=== PATIENT | female | born 1950 | race Caucasian/White ===

== ENCOUNTER 2018-01-29 07:59 | Day surgery (SDC) | payer OTHER, SELFPAY ==
[2018-01-29] MEDS: PROPARACAINE 0.5% OPHTH SOL 2 DROPS EYE-OP (10:23)
[2018-01-29] MEDS: CATARACT EYE COMPOUND (10 DROPS/SYRINGE) 3 DROPS EYE-OP (10:33)
[2018-01-29 10:41] VITALS: BP 147/71; PULSE 66; RESP 16; TEMP 36.5; O2SAT 100
--- NOTE | 2018-01-29 11:45 | PM.PREOP ---
Pre-operative Note Interval Note Pre-op Check: History & Physical Reviewed by Physician
[2018-01-29] MEDS: MOXIFLOXACIN OPHTH DROPS 3 ML BOTTLE 2 DROPS INJ (11:54)
[2018-01-29] MEDS: CHONDROIDTIN/SOD HYALURONATE 1.05 ML SYRINGE INTRAOCULA (11:54)
[2018-01-29] MEDS: TRIAMCINOLONE 50 MG/5 ML VIAL INJ (11:55)
[2018-01-29] MEDS: BALANCED SALT IRRIG SOLN NO.2 500 ML, EPINEPHrine 1 MG IRR (11:55)
[2018-01-29] MEDS: PHENYLEPHRINE/LIDOCAINE 3ML VIAL (OR) EYE-OP (11:56)
[2018-01-29] MEDS: LIDOCAINE JELLY 2% 5 ML 1 APPLIC TOP (11:57)
--- NOTE | 2018-01-29 12:05 | P.OP_ITS ---
Operative Date/Time/Diagnoses - Pre-op diagnosis: Cataract Right eye Post-op diagnosis: same Procedure & Clinicians Procedure: Cataract Surgery Same procedure as scheduled: Yes Surgeon: Dev Concepcion Anesthesia Type: MAC +/- and Sedation Operative Notes Procedure in detail: Patient brought to the operating suite. Tetracaine drops placed in the right eye. Patient was prepped and draped in sterile manner. Wire lid speculum was placed in the eye. Betadine drops were placed on the eye. This was irrigated. Lidocaine jelly was placed on the eye. A paracentesis port was created with a side-port blade. 0.1 mL 1% preservative free lidocaine was injected into the anterior chamber. The anterior chamber was deepened with viscoelastic. 2.6 mm keratome was used to create a temporal clear corneal incision. Cystotome and Utrata forceps were used to create continuous tear capsulorrhexis. Balanced salt solution was used to hydro dissect the nucleus. The phacoemulsification handpiece was inserted and the nucleus was removed using the stop and chop technique. The irrigation aspiration handpiece was inserted and the remaining cortex was removed. Anterior chamber was deepened with viscoelastic. An Heath ZCB00 intraocular lens with a power of 22.5 was injected into the capsular bag. Irrigation aspiration handpiece was inserted and the remaining viscoelastic was removed. Incision was hydrated with balanced salt solution and found to be leak free with pressure with Weck- Marcela sponges. 0.1 mL Vigamox injected anterior chamber. 0.3 mL Kenalog 10 mg was injected subconjunctivally. Lid speculum was removed. The patient left the operating room in excellent condition. Complications: none Condition: stable Disposition: same day surgery
[2018-01-29 12:09] VITALS: BP 117/75; PULSE 58; RESP 15; TEMP 36.3; O2SAT 99
[2018-01-29] MEDS: TETRACAINE 0.5% OPHTH DROPS 15 ML 2 DROPS EYE-BOTH (12:30)
== END 2018-01-29 12:17 ==
LOC: OR 07:59
PROVIDERS: Visit Provider Ophthalmology
DX: H25.11 Age-related nuclear cataract, right eye (principal)
CPT/HCPCS: J0171; J2250; J3010; J3301

== ENCOUNTER → 2018-03-05 07:28 | Outpatient (CLI) | payer OTHER, SELFPAY ==
[2018-03-05 08:39] LABS: Alanine Aminotransferase 32 IU/L (9-52); Albumin 4.7 g/dL (3.5-5.0); Albumin Globulin Ratio 1.7 (1.0-2.8); Alkaline Phosphatase 62 U/L (38-126); Aspartate Aminotransferase 31 IU/L (14-36); Bilirubin Total 0.4 mg/dL (0.2-1.3); Bilirubin Unconjugated 0.2 mg/dL (0.0-1.1); Globulin 2.7 g/dL (1.7-4.1); HEMOLYSIS < 15 (0-50); Total Protein 7.4 g/dL (6.3-8.2)
[2018-03-05 09:04] LABS: Carcinoembryonic Antigen 2.3 ng/mL (0.1-3.0)
[2018-03-06 15:43] LABS: CA 15-3 12 U/mL (< 32)
== END ==
PROVIDERS: PCP Internal Medicine
DX: C50.919 Malignant neoplasm of unspecified site of unspecified female breast (principal)
CPT/HCPCS: 36415; 80076; 82378; 86300

== ENCOUNTER 2018-03-05 12:50 | Day surgery (SDC) | payer OTHER, SELFPAY ==
[2018-03-05 12:59] VITALS: BP 184/80; PULSE 75; RESP 18; TEMP 36.3; O2SAT 99
[2018-03-05] MEDS: PROPARACAINE 0.5% OPHTH SOL 2 DROPS EYE-OP (12:59)
[2018-03-05 13:04] VITALS: BMI 25.1
[2018-03-05] MEDS: CATARACT EYE COMPOUND (10 DROPS/SYRINGE) 3 DROPS EYE-OP (13:13)
--- NOTE | 2018-03-05 13:19 | SUR.PREOP ---
Pt ready for OR at this time. Nursing admission data base completed, PIV in place, and d/c teaching has been reviewed.
--- NOTE | 2018-03-05 13:41 | P.OP.PRE_ITS ---
Pre-operative Note Interval Note Changes: No
--- NOTE | 2018-03-05 13:41 | PM.PREOP ---
Pre-operative Note Interval Note Changes: No
--- NOTE | 2018-03-05 13:42 | P.OP_ITS ---
Operative Date/Time/Diagnoses Pre-op diagnosis: Cataract Left eye Post-op diagnosis: same Procedure & Clinicians Surgeon: Dev Concepcion Anesthesia Type: MAC +/- and Sedation Operative Notes Procedure in detail: Patient brought to the operating suite. Tetracaine drops placed in the left eye. Patient was prepped and draped in sterile manner. Wire lid speculum was placed in the eye. Betadine drops were placed on the eye. This was irrigated. Lidocaine jelly was placed on the eye. A paracentesis port was created with a side-port blade. 0.1 mL 1% preservative free lidocaine was injected into the anterior chamber. The anterior chamber was deepened with viscoelastic. 2.6 mm keratome was used to create a temporal clear corneal incision. Cystotome and Utrata forceps were used to create continuous tear capsulorrhexis. Balanced salt solution was used to hydro dissect the nucleus. The phacoemulsification handpiece was inserted and the nucleus was removed using the stop and chop technique. The irrigation aspiration handpiece was inserted and the remaining cortex was removed. Anterior chamber was deepened with viscoelastic. An Heath ZCB00 intraocular lens with a power of 24.0 was injected into the capsular bag. Irrigation aspiration handpiece was inserted and the remaining viscoelastic was removed. Incision was hydrated with balanced salt solution and found to be leak free with pressure with Weck- Marcela sponges. 0.1 mL Vigamox injected anterior chamber. 0.3 mL Kenalog 10 mg was injected subconjunctivally. Lid speculum was removed. The patient left the operating room in excellent condition. Complications: none Condition: stable Disposition: same day surgery
[2018-03-05] MEDS: LIDOCAINE JELLY 2% 5 ML 1 APPLIC TOP (13:56)
[2018-03-05] MEDS: CHONDROIDTIN/SOD HYALURONATE 1.05 ML SYRINGE INTRAOCULA (13:56)
[2018-03-05] MEDS: MOXIFLOXACIN OPHTH DROPS 3 ML BOTTLE 2 DROPS INJ (13:57)
[2018-03-05] MEDS: PHENYLEPHRINE/LIDOCAINE 3ML VIAL (OR) EYE-OP (13:57)
[2018-03-05] MEDS: TETRACAINE 0.5% OPHTH DROPS 15 ML 2 DROPS EYE-LEFT (13:57)
[2018-03-05] MEDS: TRIAMCINOLONE 50 MG/5 ML VIAL INJ (13:58)
[2018-03-05] MEDS: BALANCED SALT IRRIG SOLN NO.2 500 ML, EPINEPHrine 1 MG IRR (13:58)
[2018-03-05 14:30] VITALS: BP 166/89; PULSE 67; TEMP 36.6; O2SAT 99
[2018-03-05 15:03] VITALS: BP 127/80; PULSE 60; RESP 15; TEMP 36.6; O2SAT 98
== END 2018-03-05 15:23 | disposition home or self-care (01) ==
LOC: OR 12:50
PROVIDERS: PCP Internal Medicine; Visit Provider Ophthalmology
DX: H25.12 Age-related nuclear cataract, left eye (principal); Z86.711 Personal history of pulmonary embolism
CPT/HCPCS: 36415; 80076; 82378; 86300; J0171; J2250; J3010; J3301

== ENCOUNTER → 2018-05-03 07:31 | Outpatient (CLI) | payer OTHER, SELFPAY ==
[2018-05-03 09:37] LABS: Thyroid Stimulating Hormone 1.54 uIU/mL (0.47-4.68)
== END ==
PROVIDERS: PCP Internal Medicine; Visit Provider Internal Medicine
DX: I48.92 Unspecified atrial flutter (principal); Z78.0 Asymptomatic menopausal state; Z85.3 Personal history of malignant neoplasm of breast; E78.00 Pure hypercholesterolemia, unspecified; Z90.722 Acquired absence of ovaries, bilateral; Z87.891 Personal history of nicotine dependence
CPT/HCPCS: 77080; 84443

== ENCOUNTER → 2018-05-07 14:00 | Outpatient (CLI) | payer OTHER, SELFPAY | PROVIDERS: PCP Internal Medicine | DX: Z23 Encounter for immunization (principal) | CPT/HCPCS: 90471; 90662 ==

== ENCOUNTER → 2018-05-10 14:00 | Outpatient (CLI) | payer OTHER, SELFPAY | PROVIDERS: PCP Internal Medicine; Visit Provider Podiatrist Foot & Ankle Surgery | DX: M20.11 Hallux valgus (acquired), right foot (principal); M20.41 Other hammer toe(s) (acquired), right foot | CPT/HCPCS: 93005 ==

== ENCOUNTER → 2018-06-07 13:12 | Outpatient (CLI) | payer OTHER, SELFPAY ==
[2018-06-07 13:57] LABS: Appearance Urine UA CLOUDY; Bilirubin Urine UA NEGATIVE (NEGATIVE); Color Urine UA YELLOW; Glucose Urine UA NEGATIVE (Normal); Ketones Urine UA NEGATIVE (NEGATIVE); Leukocyte Esterase Urine UA 2+ (NEGATIVE); Nitrite Urine UA NEGATIVE (Negative); Occult Blood Urine UA 2+ (Negative); Protein Urine UA 2+ (Negative); Urobilinogen Urine UA 0.2 E.U./dL (0.2); pH Urine UA 5.5 (4.5-8.0)
[2018-06-07 14:44] LABS: Bacteria Urine Moderate (10-30); Culture Indicated Urine Specimen Cultured; RBC Urine 10-30/HPF (0-5/HPF); Squamous Epithelial Cell Urine None Seen; WBC Urine >100/HPF (0-5/HPF)
== END ==
PROVIDERS: PCP Internal Medicine; Visit Provider Internal Medicine
DX: N39.0 Urinary tract infection, site not specified (principal)
CPT/HCPCS: 81001; 87077; 87086

== ENCOUNTER → 2019-05-06 07:42 | Outpatient (CLI) | payer MEDICARE, OTHER, SELFPAY ==
[2019-05-06 11:33] LABS: Add Manual Diff / Slide Review NO; Basophils Absolute Auto 0 /uL (0-100); Basophils Percent Auto 0.6 % (0-2); Eosinophils Absolute Auto 100 /uL (0-450); Eosinophils Percent Auto 1.3 % (2-4); Hematocrit 36.8 % (36-46); Hemoglobin 12.3 g/dL (12.0-16.0); Lymphocytes Absolute Auto 1300 /uL (1100-4500); Lymphocytes Percent Auto 28.1 % (25-40); Mean Corpuscular HGB Conc 33.5 % (30-36); Mean Corpuscular Hemoglobin 31.3 PG (26-34); Mean Corpuscular Volume 93.4 fL (80-100); Monocytes Absolute Auto 500 /uL (0-900); Monocytes Percent Auto 11.5 % (3-14); Neutrophils Absolute Auto 2700 /uL (1500-7000); Neutrophils Percent Auto 58.5 % (50-75); Platelet Count 231 X10^3/uL (150-400); Red Blood Cell Count 3.94 X10^6/uL (4.0-5.2); Red Cell Distribution Width 13.4 % (11.6-14.8); White Blood Cell Count 4.5 X10^3/uL (4.5-11.0)
[2019-05-06 11:46] LABS: Alanine Aminotransferase 31 IU/L (9-52); Albumin 4.7 g/dL (3.5-5.0); Albumin Globulin Ratio 1.7 (1.0-2.8); Alkaline Phosphatase 62 U/L (38-126); Aspartate Aminotransferase 36 IU/L (14-36); BUN Creatinine Ratio 26.4 (6-22); Bilirubin Total 0.6 mg/dL (0.2-1.3); Blood Urea Nitrogen 29 mg/dL (7-17); Calcium 10.4 mg/dL (8.4-10.2); Carbon Dioxide 27 mmol/L (22-32); Chloride 100 mmol/L (98-107); Estimated Glomerular Filt Rate 49.1 mL/min (>60); Globulin 2.7 g/dL (1.7-4.1); Glucose 91 mg/dL (80-110); HEMOLYSIS < 15 (0-50); Potassium 5.1 mmol/L (3.4-5.1); Sodium 138 mmol/L (137-145); Total Protein 7.4 g/dL (6.3-8.2)
[2019-05-06 12:19] LABS: Vitamin D 25 Hydroxy (D3) 62.3 ng/mL (30.0-100.0)
== END ==
PROVIDERS: Family Provider Internal Medicine; PCP Internal Medicine; Visit Provider Nurse Practitioner
DX: Z12.39 Encounter for other screening for malignant neoplasm of breast (principal); Z85.3 Personal history of malignant neoplasm of breast
CPT/HCPCS: 36415; 80053; 82306; 85025

== ENCOUNTER → 2019-05-22 07:39 | Outpatient (CLI) | payer MEDICARE, OTHER, SELFPAY ==
[2019-05-22 09:14] LABS: Cholesterol 259 mg/dL (140-199); HDL Cholesterol 101 mg/dL (40-60); LDL Cholesterol Calculated 141 mg/dL (<100); Triglycerides 87 mg/dL (35-150)
== END ==
PROVIDERS: PCP Internal Medicine; Visit Provider Internal Medicine
DX: E78.00 Pure hypercholesterolemia, unspecified (principal)
CPT/HCPCS: 36415; 80061

== ENCOUNTER → 2019-05-30 15:32 | Outpatient (CLI) | payer MEDICARE, OTHER, SELFPAY | PROVIDERS: PCP Internal Medicine | DX: Z23 Encounter for immunization (principal) | CPT/HCPCS: 90471; 90662 ==

== ENCOUNTER → 2020-02-05 11:43 | Outpatient (CLI) | payer MEDICARE, OTHER, SELFPAY ==
[2020-02-05 12:19] LABS: Add Manual Diff / Slide Review NO; Basophils Absolute Auto 0 /uL (0-100); Basophils Percent Auto 0.7 % (0-2); Eosinophils Absolute Auto 100 /uL (0-450); Eosinophils Percent Auto 1.5 % (2-4); Hematocrit 36.8 % (36-46); Hemoglobin 12.7 g/dL (12.0-16.0); Lymphocytes Absolute Auto 1200 /uL (1100-4500); Lymphocytes Percent Auto 22.9 % (25-40); Mean Corpuscular HGB Conc 34.4 % (30-36); Mean Corpuscular Hemoglobin 31.7 PG (26-34); Mean Corpuscular Volume 91.9 fL (80-100); Monocytes Absolute Auto 600 /uL (0-900); Monocytes Percent Auto 11.9 % (3-14); Neutrophils Absolute Auto 3400 /uL (1500-7000); Platelet Count 237 X10^3/uL (150-400); Red Cell Distribution Width 13.7 % (11.6-14.8); White Blood Cell Count 5.5 X10^3/uL (4.5-11.0)
[2020-02-05 12:51] LABS: Alanine Aminotransferase 20 IU/L (<35); Albumin 4.7 g/dL (3.5-5.0); Alkaline Phosphatase 67 U/L (38-126); Aspartate Aminotransferase 33 IU/L (14-36); BUN Creatinine Ratio 20.4 (6-22); Bilirubin Total 0.5 mg/dL (0.2-1.3); Blood Urea Nitrogen 34 mg/dL (7-17); Calcium 10.3 mg/dL (8.4-10.2); Carbon Dioxide 25 mmol/L (22-32); Chloride 103 mmol/L (98-107); Cholesterol 234 mg/dL (140-199); Estimated Glomerular Filt Rate 30.2 mL/min (>60); Globulin 2.4 g/dL (1.7-4.1); Glucose 97 mg/dL (80-110); HDL Cholesterol 97 mg/dL (40-60); HEMOLYSIS < 15 (0-50); LDL Cholesterol Calculated 112 mg/dL (<100); Potassium 4.7 mmol/L (3.4-5.1); Sodium 136 mmol/L (137-145); Total Protein 7.1 g/dL (6.3-8.2); Triglycerides 124 mg/dL (35-150)
[2020-02-05 13:19] LABS: TSH w/ Reflex to FT4 1.46 uIU/mL (0.47-4.68)
== END ==
PROVIDERS: PCP Internal Medicine; Referring Provider Internal Medicine; Visit Provider Internal Medicine
DX: I48.92 Unspecified atrial flutter (principal); E78.2 Mixed hyperlipidemia
CPT/HCPCS: 36415; 80053; 80061; 84443; 85025

== ENCOUNTER → 2020-03-15 09:22 | Outpatient (CLI) | payer MEDICARE, OTHER, SELFPAY ==
[2020-03-15 14:29] LABS: BUN Creatinine Ratio 31.2 (6-22); Blood Urea Nitrogen 34 mg/dL (7-17); Calcium 10.6 mg/dL (8.4-10.2); Carbon Dioxide 25 mmol/L (22-32); Chloride 106 mmol/L (98-107); Estimated Glomerular Filt Rate 49.5 mL/min (>60); Glucose 99 mg/dL (80-110); HEMOLYSIS < 15 (0-50); Potassium 4.8 mmol/L (3.4-5.1); Sodium 138 mmol/L (137-145)
== END ==
PROVIDERS: PCP Internal Medicine; Referring Provider Internal Medicine; Visit Provider Internal Medicine
DX: I48.92 Unspecified atrial flutter (principal); E78.2 Mixed hyperlipidemia
CPT/HCPCS: 36415; 80048

== ENCOUNTER → 2020-05-04 10:18 | Outpatient (CLI) | payer MEDICARE, OTHER, SELFPAY ==
--- NOTE | 2020-05-04 | DI.MRI.S_ITS ---
PROCEDURE: MR ANKLE LT WO CON INDICATIONS: left ankle pain TECHNIQUE: Noncontrast sagittal T1 spin echo and T2 fast spin echo with fat saturation, axial proton density fast spin echo and T2 fast spin echo with fat saturation, coronal T1 spin echo and T2 fast spin echo with fat saturation through the ankle/hindfoot. COMPARISON: [facility] [place], CR, XR FOOT 3 VIEWS WEIGHT BEARING RIGHT, 01/23/2018, 13:44. FINDINGS: Image quality: Diagnostic. Bones and joints: Mild trabecular bone injury is seen in the medial navicular adjacent to the posterior tibialis tendon insertion. There is a cornuate appearance of the navicular/type 3 os navicular. There is mild pes planus. Degenerative changes are seen at the 2nd through 5th tarsometatarsal joints with subchondral cystic changes and marginal osteophyte formation. Mild subchondral edema is seen in the middle cuneiform. Mild degenerative changes also seen at the calcaneocuboid articulation. No hindfoot coalitions. There is a small osteochondral lesion in the medial talar dome measuring 5 x 3 mm with cartilage loss and subchondral edema. The subchondral plate is intact. No pathologic joint effusions. A low-density lesion medial to the posterior calcaneus measuring 12 x 8 x 10 mm. No associated calcification is seen on prior radiographs from 01/23/2018. Medial structures: The deep and superficial layers of the deltoid ligament appear intact. There is mild medial bowing of the tibiospring ligament. There is partial intrasubstance tearing of the posterior tibialis tendon at its insertion onto the navicular. The flexor digitorum longus and flexor hallucis longus tendons are intact. The posterior tibial neurovascular bundle appears normal within the tarsal tunnel, without extrinsic mass effect. Lateral structures: Mild thickening of the anterior talofibular ligament and the calcaneofibular ligament compatible with low-grade sprains. The posterior talofibular ligament is intact. The anterior and posterior tibiofibular ligaments appear intact. The peroneus longus and brevis tendons demonstrate normal location and morphology. A small ganglion cyst is seen arising from the lateral sinus tarsi. Anterior structures: The tibialis anterior, extensor hallucis longus, and extensor digitorum longus tendons appear intact. The dorsal talonavicular ligament appears intact. Posterior and plantar structures: Mild edema is seen in Kager's fat pad compatible with mild peritenonitis. Medial and lateral bands of the plantar fascia are of normal thickness. No abductor digiti quinti muscle atrophy to suggest Smiley neuropathy. IMPRESSION: 1. Partial intrasubstance tearing of the distal posterior tibialis tendon at its navicular insertion. There is mild traction trabecular bone injury in the adjacent portion of the navicular bone. 2. Mild pes planus. 3. Small chronic osteochondral lesion in the medial talar dome measuring 5 x 3 mm with articular cartilage loss and subchondral edema without disruption of the subchondral plate. 4. Mild Achilles peritenonitis. 5. Chronic low-grade sprains of the anterior talofibular ligament and calcaneofibular ligament. 6. A hypointense soft tissue lesion is seen medial to the posterior calcaneus measuring 12 x 8 x 10 mm. Differential considerations include tenosynovial cerebral giant cell tumor versus fibroma or other nonspecific soft tissue mass. Dictated by: Owen Swenson M.D. on 05/04/2020 at 13:38 Approved by: Owen Swenson M.D. on 05/04/2020 at 13:56
== END ==
PROVIDERS: PCP Internal Medicine; Referring Provider Podiatrist Foot & Ankle Surgery; Visit Provider Podiatrist Foot & Ankle Surgery
DX: M25.572 Pain in left ankle and joints of left foot (principal); S96.812A Strain of other specified muscles and tendons at ankle and foot level, left foot, initial encounter; S93.492A Sprain of other ligament of left ankle, initial encounter; S93.412A Sprain of calcaneofibular ligament of left ankle, initial encounter; M21.42 Flat foot [pes planus] (acquired), left foot; M76.62 Achilles tendinitis, left leg; R22.42 Localized swelling, mass and lump, left lower limb
CPT/HCPCS: 73721

== ENCOUNTER → 2020-05-25 10:59 | Outpatient (CLI) | payer MEDICARE, OTHER, SELFPAY ==
[2020-05-25 12:44] LABS: Add Manual Diff / Slide Review NO; Basophils Absolute Auto 100 /uL (0-100); Basophils Percent Auto 0.9 % (0-2); Eosinophils Absolute Auto 100 /uL (0-450); Eosinophils Percent Auto 1.3 % (2-4); Hematocrit 38.9 % (36-46); Hemoglobin 12.8 g/dL (12.0-16.0); Lymphocytes Absolute Auto 1500 /uL (1100-4500); Lymphocytes Percent Auto 27.2 % (25-40); Mean Corpuscular HGB Conc 32.9 % (30-36); Mean Corpuscular Hemoglobin 30.4 PG (26-34); Mean Corpuscular Volume 92.5 fL (80-100); Monocytes Absolute Auto 600 /uL (0-900); Monocytes Percent Auto 10.8 % (3-14); Neutrophils Absolute Auto 3300 /uL (1500-7000); Neutrophils Percent Auto 59.8 % (50-75); Platelet Count 277 X10^3/uL (150-400); Red Blood Cell Count 4.21 X10^6/uL (4.0-5.2); Red Cell Distribution Width 13.9 % (11.6-14.8); White Blood Cell Count 5.5 X10^3/uL (4.5-11.0)
[2020-05-25 12:53] LABS: Alanine Aminotransferase 17 IU/L (<35); Albumin 4.6 g/dL (3.5-5.0); Albumin Globulin Ratio 1.6 (1.0-2.8); Alkaline Phosphatase 71 U/L (38-126); Aspartate Aminotransferase 29 IU/L (14-36); BUN Creatinine Ratio 24.6 (6-22); Bilirubin Total 0.5 mg/dL (0.2-1.3); Blood Urea Nitrogen 30 mg/dL (7-17); Carbon Dioxide 31 mmol/L (22-32); Chloride 100 mmol/L (98-107); Estimated Glomerular Filt Rate 43.4 mL/min (>60); Globulin 2.9 g/dL (1.7-4.1); Glucose 99 mg/dL (80-110); HEMOLYSIS < 15 (0-50); Potassium 4.9 mmol/L (3.4-5.1); Sodium 136 mmol/L (137-145); Total Protein 7.5 g/dL (6.3-8.2)
[2020-05-25 13:07] LABS: Vitamin D 25 Hydroxy (D3) 61.5 ng/mL (30.0-100.0)
== END ==
PROVIDERS: PCP Internal Medicine; Referring Provider Nurse Practitioner; Visit Provider Nurse Practitioner
DX: C50.919 Malignant neoplasm of unspecified site of unspecified female breast (principal); E55.9 Vitamin D deficiency, unspecified
CPT/HCPCS: 36415; 80053; 82306; 85025

== ENCOUNTER → 2020-05-25 11:32 | Outpatient (CLI) | payer MEDICARE, OTHER, SELFPAY | PROVIDERS: PCP Internal Medicine; Referring Provider Internal Medicine; Visit Provider Internal Medicine | DX: Z23 Encounter for immunization (principal) | CPT/HCPCS: 90471; 90662 ==

== ENCOUNTER → 2020-07-26 09:04 | Outpatient (CLI) | payer MEDICARE, OTHER, SELFPAY ==
[2020-07-26 10:41] LABS: COVID19 -Nasal RAPID Negative (Negative)
== END ==
PROVIDERS: PCP Internal Medicine; Visit Provider Specialist
DX: Z01.812 Encounter for preprocedural laboratory examination (principal); Z20.828 Contact with and (suspected) exposure to other viral communicable diseases
CPT/HCPCS: 87635; C9803

== ENCOUNTER 2020-07-27 07:58 | Day surgery (SDC) | payer MEDICARE, OTHER, SELFPAY ==
[2020-07-27] VITALS (8 sets, daily range): BP systolic 103–174; BP diastolic 52–87; PULSE 54–95; RESP 10–20; TEMP 36.1–37.1; O2SAT 94–100; BMI 25.8
--- NOTE | 2020-07-27 | PATH_ITS ---
[facility] Accession Number: [id number] . 01 Material submitted: . PART A: colon - ASCENDING COLON POLYPS PART B: body - POLYP AT 50CM PART C: body - POLYPS AT 15CM . 02 Diagnosis: A. Ascending Colon, Polyps, Biopsies: Sessile serrated adenoma in three of multiple fragments. . B. Colon, Polyp at 50 cm, Biopsy: Sessile serrated adenoma. . C. Polyps at 15 cm, Biopsy: Hyperplastic polyps. [facility] 07/30/2020 1144 Local . 02 Electronically signed: . Mariel Davis MD, Pathologist NPI- [id number] . 01 Gross description: . Part A: ASCENDING COLON POLYPS: Received in formalin are multiple fragment(s) of garland, soft tissue measuring 1.4 x 0.5 x 0.3 cm in aggregate submitted entirely in 1 cassette(s) Part B: POLYP AT 50CM: Received in formalin is 1 fragment(s) of garland, soft tissue measuring 0.6 x 0.3 x 0.2 cm submitted entirely in 1 cassette(s) Part C: POLYPS AT 15CM: Received in formalin are 4 fragment(s) of garland, soft tissue measuring 0.5 x 0.3 x 0.2 cm to 0.2 x 0.2 x 0.1 cm submitted entirely in 1 cassette(s) /QBJ 07/28/2020 0817 Local . 02 Pathologist provided ICD-10: D12.2, D12.6 . 02 CPT . 850531, 619523, 360547 Performed at: [address], [place], [place] [id number] MD William Mcginnis MD Phone: [phone] Performed at: 02 [facility] [address] [place] [id number] MD Mariel Davis MD Phone: [phone]
[2020-07-27] MEDS: LACTATED RINGERS 1,000 ML 200 ML IV (08:21)
--- NOTE | 2020-07-27 08:58 | PM.HP.1 ---
History of Present Illness History of Present Illness Date Patient Seen: 07/27/20 Time Patient Seen: 09:03 Chief complaint: SDC Narrative: The patient is woman here for screening exam. She has had polyps removed in the past. Her last exam was 5 years ago. Patient History Medical History Asymptomatic varicose veins of bilateral lower extremities Bilateral cataracts Factor 5 Leiden mutation, heterozygous Mild HTN Surgical History H/O right mastectomy (~1992) H/O vaginal hysterectomy History of meniscectomy of left knee Family & Social History Family History Grandmother Ovarian cancer Mother Lung cancer Father Prostate cancer Social History: household members none Tobacco & Substance use: Smoking Status Former smoker alcohol intake current Substance Use Type does not use Meds Home Medications and Allergies Home Medications Medication Instructions Recorded Confirmed Type lisinopril 20 mg PO QDAY #0 05/15/17 07/27/20 History Eliquis 5 mg PO BID 01/29/18 07/27/20 History cholecalciferol (vitamin D3) 4,000 unit PO DAILY 01/29/18 07/27/20 History [Vitamin D3] metoprolol tartrate 50 mg PO BID 01/29/18 07/27/20 History nitrofurantoin macrocrystal 100 mg 100 mg PO BID #14 cap 03/29/20 Rx capsule Allergies Allergy/AdvReac Type Severity Reaction Status Date / Time No Known Drug Allergies Allergy Verified 07/27/20 08:00 Review of Systems Review of Systems Narrative: History of pulmonary embolism related to factor 5 Leiden deficiency. History of atrial fibrillation rate controlled with metoprolol. Prior use of a calcium channel elena has been discontinued. ROS: Yes All systems reviewed with the patient and are negative except as otherwise documented Exam Vital Signs (past 8 hours): - 07/27/20 08:16 07/27/20 08:33 Temperature 98.7 F Pulse Rate 95 H Respiratory Rate 20 Blood Pressure 174/86 H Pulse Oximetry 100 Oxygen Delivery Method Room Air Narrative Exam Narrative: Pleasant cooperative patient no apparent distress. Lungs are clear to auscultation. No rales or rhonchi. Heart fairly regular rate(slight irregularity noted) and rhythm no murmur gallop. Abdomen is soft nontender without mass. No obvious hernias. Patient is alert and oriented x3. Assessment & Plan Assessment & Plan narrative: The patient for a screening colonoscopy. I have discussed the procedure with them. Risks of bleeding, perforation which would necessitate major operation, failure to find remove all lesions, the potential tattoo were all discussed. All questions were answered. They wished to proceed.
--- NOTE | 2020-07-27 09:07 | PM.PREOP ---
Pre-operative Note COVID-19 COVID-19 status: Negative Result date/Date tested (Pos, Neg/Pending): 07/26/20 Interval Note History & Physical reviewed/Exam performed by Physician: Yes Changes to H&P: No ASA Class (for procedural sedation): III
[2020-07-27] MEDS: MIDAZOLAM 5 MG/5 ML VIAL IV (09:42)
[2020-07-27] MEDS: fentaNYL 250 MCG/5 ML INJ IV (09:42)
--- NOTE | 2020-07-27 09:58 | PM.OP.ENDO ---
Operative Date/Time/Diagnoses Date of procedure: 07/27/20 Time of procedure: 09:59 Pre-op diagnosis: Screening exam. Personal history of polyps. Last exam 5 years ago. Post-op diagnosis: same (Small polyps removed) Procedure & Clinicians Study performed: Colonoscopy with cold biopsy Same procedure as scheduled: Yes Indications: Screening in a high risk patient Surgeon: Carlos Hastings Procedure Notes SCOAP/Timeout: Performed Procedure in detail: The patient was placed in the left lateral decubitus position and underwent IV sedation directed by the surgeon consisting of fentanyl and Versed. Digital exam was unremarkable. The scope was inserted and advanced through the rectum into the sigmoid, descending, transverse, and ascending colon. The patient had a rather tortuous colon. The going was slow.. The cecum was reached identified by the ileocecal valve and the appendiceal opening. The ileocecal valve was[briefly] cannulated. The terminal ileum was normal in appearance. The scope was gradually brought out. Small Polyps were found at the ascending colon, at 55 cm, and if 18 cm from the anal verge. These were all rather small lesions.. The scope ultimately was retroflexed in the rectum. The appearance was remarkable from scarring on old hemorrhoids but no active disease.. The scope was removed and the patient tolerated the procedure well. The prep was good. Scope withdrawal time: Approx 14 minutes(21 total) Sedation minutes: 50 Findings: polyp (Multiple small lesions under a cm) Specimen(s): other (Polyps) Complications: none Post-procedure Recommendations: Colonscopy in 5 years and Continue medication(s) (Resume anticoagulation tomorrow.) Follow up: as needed Disposition: PACU
== END 2020-07-27 10:49 | disposition home or self-care (01) ==
PROVIDERS: PCP Internal Medicine; Referring Provider Specialist; Visit Provider Specialist
PROC: 0DJD8ZZ Inspection of Lower Intestinal Tract, Via Natural or Artificial Opening Endoscopic (ICD-10-PCS; CPT 45378; principal; 2020-07-27 09:15)
DX: Z12.11 Encounter for screening for malignant neoplasm of colon (principal); Z86.010 Personal history of colon polyps; D68.51 Activated protein C resistance; I10 Essential (primary) hypertension; D12.6 Benign neoplasm of colon, unspecified; D12.2 Benign neoplasm of ascending colon
CPT/HCPCS: 45380; 99152; 99153; J2250; J3010

== ENCOUNTER → 2020-08-18 10:24 | Outpatient (CLI) | payer MEDICARE, OTHER, SELFPAY ==
[2020-08-18] MEDS: COVID-19 VACC(MODERNA-1)/PF 100 MCG/0.5 ML VIAL IM (10:31)
== END ==
PROVIDERS: PCP Internal Medicine; Visit Provider Internal Medicine
DX: Z23 Encounter for immunization (principal)
CPT/HCPCS: 0011A; 91301

== ENCOUNTER → 2020-09-14 12:59 | Outpatient (CLI) | payer MEDICARE, OTHER, SELFPAY ==
[2020-09-14] MEDS: COVID-19 VACC #2, MRNA(MOD) 100 MCG/0.5 ML VIAL IM (13:01)
== END ==
PROVIDERS: PCP Internal Medicine; Visit Provider Internal Medicine
DX: Z23 Encounter for immunization (principal)
CPT/HCPCS: 0012A; 91301

== ENCOUNTER → 2021-04-12 14:34 | Outpatient (CLI) | payer MEDICARE, OTHER, SELFPAY ==
[2021-04-12 15:00] LABS: COVID19 -Nasal RAPID Negative (Negative)
== END ==
PROVIDERS: PCP Internal Medicine; Visit Provider Specialist
DX: Z20.822 Contact with and (suspected) exposure to COVID-19 (principal)
CPT/HCPCS: 87635; C9803

== ENCOUNTER → 2021-06-14 17:29 | Outpatient (CLI) | payer MEDICARE, OTHER, SELFPAY | PROVIDERS: PCP Internal Medicine; Referring Provider Internal Medicine; Visit Provider Internal Medicine | DX: Z23 Encounter for immunization (principal) | CPT/HCPCS: 90471; 90662 ==

== ENCOUNTER → 2021-06-21 10:16 | Outpatient (CLI) | payer MEDICARE, OTHER, SELFPAY ==
[2021-06-21 11:40] LABS: COVID19 -Nasal RAPID Negative (Negative)
== END ==
PROVIDERS: PCP Internal Medicine; Visit Provider Surgery
DX: Z01.812 Encounter for preprocedural laboratory examination (principal); Z20.822 Contact with and (suspected) exposure to COVID-19
CPT/HCPCS: 87635; C9803

== ENCOUNTER → 2021-08-17 09:31 | Outpatient (CLI) | payer MEDICARE, OTHER, SELFPAY ==
[2021-08-17 10:10] LABS: Add Manual Diff / Slide Review NO; Basophils Absolute Auto 0 /uL (0-100); Basophils Percent Auto 0.4 % (0-2); Eosinophils Absolute Auto 100 /uL (0-450); Eosinophils Percent Auto 1.3 % (2-4); Hematocrit 37.7 % (36-46); Hemoglobin 12.8 g/dL (12.0-16.0); Lymphocytes Absolute Auto 1100 /uL (1100-4500); Lymphocytes Percent Auto 21.6 % (25-40); Mean Corpuscular HGB Conc 33.9 % (30-36); Mean Corpuscular Hemoglobin 31.4 PG (26-34); Mean Corpuscular Volume 92.5 fL (80-100); Monocytes Absolute Auto 600 /uL (0-900); Monocytes Percent Auto 11.3 % (3-14); Neutrophils Absolute Auto 3300 /uL (1500-7000); Neutrophils Percent Auto 65.4 % (50-75); Platelet Count 250 X10^3/uL (150-400); Red Blood Cell Count 4.08 X10^6/uL (4.0-5.2); Red Cell Distribution Width 13.3 % (11.6-14.8)
[2021-08-17 11:11] LABS: Alanine Aminotransferase 23 IU/L (<35); Albumin 4.8 g/dL (3.5-5.0); Albumin Globulin Ratio 1.8 (1.0-2.8); Alkaline Phosphatase 64 U/L (38-126); Aspartate Aminotransferase 31 IU/L (14-36); BUN Creatinine Ratio 22.4 (6-22); Bilirubin Total 0.5 mg/dL (0.2-1.3); Blood Urea Nitrogen 28 mg/dL (7-17); Calcium 10.6 mg/dL (8.4-10.2); Carbon Dioxide 25 mmol/L (22-32); Chloride 103 mmol/L (98-107); Globulin 2.7 g/dL (1.7-4.1); Glucose 111 mg/dL (80-110); HEMOLYSIS < 15 (0-50); Sodium 136 mmol/L (137-145); Total Protein 7.5 g/dL (6.3-8.2)
[2021-08-17 11:14] LABS: Cholesterol 284 mg/dL (140-199); Triglycerides 105 mg/dL (35-150)
[2021-08-17 11:19] LABS: Vitamin D 25 Hydroxy (D3) 70.8 ng/mL (30.0-100.0)
[2021-08-17 11:35] LABS: HDL Cholesterol 122 mg/dL (40-60); LDL Cholesterol Calculated 141 mg/dL (<100)
== END ==
PROVIDERS: PCP Internal Medicine; Referring Provider Nurse Practitioner; Visit Provider Nurse Practitioner
DX: Z85.3 Personal history of malignant neoplasm of breast (principal); E78.2 Mixed hyperlipidemia; E55.9 Vitamin D deficiency, unspecified
CPT/HCPCS: 36415; 80053; 80061; 82306; 85025

== ENCOUNTER → 2022-04-19 09:07 | Outpatient (CLI) | payer MEDICARE, OTHER, SELFPAY ==
[2022-04-19 17:42] LABS: Hematocrit 36.2 % (36-46); Hemoglobin 12.2 g/dL (12.0-16.0); Mean Corpuscular HGB Conc 33.7 % (30-36); Mean Corpuscular Volume 92.1 fL (80-100); Platelet Count 274 X10^3/uL (150-400); Red Blood Cell Count 3.93 X10^6/uL (4.0-5.2); Red Cell Distribution Width 13.8 % (11.6-14.8); White Blood Cell Count 5.3 X10^3/uL (4.5-11.0)
[2022-04-19 18:00] LABS: Alanine Aminotransferase 22 IU/L (<35); Albumin 4.7 g/dL (3.5-5.0); Albumin Globulin Ratio 1.5 (1.0-2.8); Alkaline Phosphatase 57 U/L (38-126); Aspartate Aminotransferase 33 IU/L (14-36); BUN Creatinine Ratio 19.1 (6-22); Bilirubin Total 0.4 mg/dL (0.2-1.3); Blood Urea Nitrogen 30 mg/dL (7-17); Calcium 9.9 mg/dL (8.4-10.2); Carbon Dioxide 26 mmol/L (22-32); Chloride 103 mmol/L (98-107); Cholesterol 239 mg/dL (140-199); Estimated Glomerular Filt Rate 35 mL/min (>60); Globulin 3.1 g/dL (1.7-4.1); Glucose 104 mg/dL (80-110); HEMOLYSIS < 15 (0-50); Potassium 4.9 mmol/L (3.4-5.1); Sodium 139 mmol/L (137-145); Total Protein 7.8 g/dL (6.3-8.2); Triglycerides 85 mg/dL (35-150)
[2022-04-19 18:15] LABS: HDL Cholesterol 116 mg/dL (40-60); LDL Cholesterol Calculated 106 mg/dL (<100)
[2022-04-19 18:36] LABS: TSH w/ Reflex to FT4 1.56 uIU/mL (0.47-4.68)
[2022-04-21 07:27] LABS: Parathyroid Hormone Int 31 pg/mL (15-65)
== END ==
PROVIDERS: PCP Internal Medicine; Referring Provider Internal Medicine; Visit Provider Internal Medicine
DX: E78.2 Mixed hyperlipidemia (principal); I10 Essential (primary) hypertension; I48.0 Paroxysmal atrial fibrillation; Z79.01 Long term (current) use of anticoagulants; Z85.3 Personal history of malignant neoplasm of breast; Z86.711 Personal history of pulmonary embolism
CPT/HCPCS: 36415; 80053; 80061; 83970; 84443; 85027

== ENCOUNTER → 2022-05-16 11:00 | Outpatient (CLI) | payer MEDICARE, OTHER, SELFPAY | PROVIDERS: PCP Internal Medicine; Referring Provider Internal Medicine; Visit Provider Internal Medicine | DX: Z23 Encounter for immunization (principal) | CPT/HCPCS: 90471; 90662 ==

== ENCOUNTER → 2023-01-10 09:49 | Outpatient (CLI) | payer MEDICARE, OTHER, SELFPAY ==
--- NOTE | 2023-01-10 09:51 | DI.RAD.S_ITS ---
PROCEDURE: XR HIP W PEL IF DONE RT 2V INDICATIONS: right hip pain TECHNIQUE: AP pelvis with lateral view(s) of the right hip(s). COMPARISON: None. FINDINGS: Bones: No fractures or dislocations. Pelvic ring appears intact. No suspicious bony lesions. Moderate osteoarthritic changes in right hip. Soft tissues: The visualized bowel gas pattern is normal. No suspicious soft tissue calcifications. IMPRESSION: Moderate osteoarthritis. Dictated by: Suleiman Chang M.D. on 01/10/2023 at 16:46 Approved by: Suleiman Chang M.D. on 01/10/2023 at 16:47
[2023-01-10 11:29] LABS: Hematocrit 34.9 % (36-46); Hemoglobin 11.9 g/dL (12.0-16.0); Mean Corpuscular HGB Conc 34.1 % (30-36); Mean Corpuscular Hemoglobin 31.3 PG (26-34); Mean Corpuscular Volume 91.8 fL (80-100); Platelet Count 273 X10^3/uL (150-400); Red Cell Distribution Width 13.8 % (11.6-14.8); White Blood Cell Count 5.2 X10^3/uL (4.5-11.0)
[2023-01-10 12:22] LABS: Alanine Aminotransferase 26 IU/L (<35); Albumin 4.6 g/dL (3.5-5.0); Albumin Globulin Ratio 1.6 (1.0-2.8); Alkaline Phosphatase 62 U/L (38-126); Aspartate Aminotransferase 31 IU/L (14-36); BUN Creatinine Ratio 22.1 (6-22); Bilirubin Total 0.3 mg/dL (0.2-1.3); Blood Urea Nitrogen 32 mg/dL (7-17); Calcium 9.7 mg/dL (8.4-10.2); Carbon Dioxide 25 mmol/L (22-32); Chloride 102 mmol/L (98-107); Cholesterol 229 mg/dL (140-199); Estimated Glomerular Filt Rate 38 mL/min (>60); Globulin 2.8 g/dL (1.7-4.1); Glucose 120 mg/dL (80-110); HEMOLYSIS < 15 (0-50); Potassium 4.5 mmol/L (3.4-5.1); Sodium 137 mmol/L (137-145); Total Protein 7.4 g/dL (6.3-8.2); Triglycerides 100 mg/dL (35-150)
[2023-01-10 12:31] LABS: HDL Cholesterol 120 mg/dL (40-60); LDL Cholesterol Calculated 89 mg/dL (<100)
== END ==
PROVIDERS: PCP Internal Medicine; Referring Provider Internal Medicine; Visit Provider Internal Medicine
DX: Z01.818 Encounter for other preprocedural examination (principal); C44.91 Basal cell carcinoma of skin, unspecified; N18.32 Chronic kidney disease, stage 3b; I48.0 Paroxysmal atrial fibrillation; M16.11 Unilateral primary osteoarthritis, right hip; Z86.711 Personal history of pulmonary embolism
CPT/HCPCS: 11603; 36415; 73502; 80053; 80061; 85027; 93005

== ENCOUNTER → 2023-05-17 16:33 | Outpatient (CLI) | payer MEDICARE, OTHER, SELFPAY | PROVIDERS: PCP Internal Medicine; Referring Provider Family Medicine; Visit Provider Family Medicine | DX: Z23 Encounter for immunization (principal) | CPT/HCPCS: 90471; 90662 ==

== ENCOUNTER 2023-07-17 07:35 | Day surgery (SDC) | payer MEDICARE, OTHER, SELFPAY ==
--- NOTE | 2023-07-17 | PATH_ITS ---
[facility] Accession Number: [id number] No. of containers..01 Tissue . 01 Material submitted: . rectum - RECTUM POLYP . 01 Diagnosis: Rectum, Polyp: Hyperplastic polyp. [facility] 07/25/2023 1748 Local . 01 Electronically signed: . Mariel Davis MD, Pathologist NPI- [id number] . 01 Gross description: . RECTUM POLYP: Received in formalin is 1 fragment(s) of garland, soft tissue measuring 0.4 x 0.3 x 0.2 cm submitted entirely in 1 cassette(s) /AAY 07/18/2023 0506 Local . 01 Pathologist provided ICD-10: K63.5 . 01 CPT . 837535 Specimen Comment: A courtesy copy of this report has been sent to [phone] Performed at: 01 [facility] [address] [place] [address], [place], [place] [id number] MD William Mcginnis MD Phone: [phone]
[2023-07-17 07:52] VITALS: BMI 25.8
[2023-07-17 07:57] VITALS: BP 180/83; PULSE 74; RESP 12; TEMP 37.3; O2SAT 99
[2023-07-17] MEDS: LACTATED RINGERS 1,000 ML 42 ML IV (08:08)
--- NOTE | 2023-07-17 08:35 | P.HP_ITS ---
History of Present Illness History of Present Illness Date Patient Seen: 07/17/23 Time Patient Seen: 08:35 Chief complaint: Colonoscopy Narrative: 73-year-old woman here for screening colonoscopy personal history of colonic polyps. Last colonoscopy 2019 significant for to sessile serrated adenomas. No abdominal concerns today. No family history of intestinal malignancy. [facility] Medical History Shoulder pain (~2021) Chicken pox Breast cancer (~1992) Primary osteoarthritis involving multiple joints Stage 3b chronic kidney disease (CKD) History of breast cancer History of colonic polyps Mixed hyperlipidemia Essential hypertension Chronic anticoagulation Factor 5 Leiden mutation, heterozygous (~2017) History of pulmonary embolism (~2017) Paroxysmal atrial fibrillation (~2017) Bilateral cataracts Mild HTN Asymptomatic varicose veins of bilateral lower extremities Surgical History Anesthesia History of varicose vein stripping History of blepharoplasty History of bunionectomy History of meniscectomy of left knee H/O vaginal hysterectomy H/O right mastectomy (~1992) Family History Grandmother Ovarian cancer Mother Lung cancer Father Prostate cancer Brother Suicide Grandfather Cancer Grandfather Influenza Grandmother Influenza Social History household members: none Smoking Status: Former smoker alcohol intake: current substance use type: does not use Meds Home Medications and Allergies Home Medications Medication Instructions Recorded Confirmed Type cholecalciferol (vitamin D3) 125 125 mcg PO DAILY 03/06/22 07/17/23 History mcg (5,000 unit) capsule amlodipine 5 mg tablet 5 mg PO DAILY #90 tabs 08/17/22 07/17/23 Rx rosuvastatin 10 mg tablet 10 mg PO DAILY #90 tabs 09/18/22 07/17/23 Rx cephalexin 500 mg capsule 500 mg PO TID #21 caps 01/10/23 07/17/23 Rx lisinopril 20 mg tablet 20 mg PO DAILY #90 tabs 03/26/23 07/17/23 Rx apixaban 5 mg tablet (Eliquis) 5 mg PO BID #180 tabs 04/05/23 07/17/23 Rx metoprolol succinate 50 mg 50 mg PO DAILY #30 tabs 06/12/23 07/17/23 Rx tablet,extended release 24 hr sodium sul 1.479 gram-potas ch See Rx Instructions PO PER PKG DIR 07/09/23 07/17/23 Rx 0.188 gram-magnes sul 0.225 gram #24 tabs tablet (Sutab) Allergies Allergy/AdvReac Type Severity Reaction Status Date / Time No Known Drug Allergies Allergy Verified 07/17/23 07:25 Exam Vital Signs (past 8 hours): - 07/17/23 07:57 Temperature 99.2 F Pulse Rate 74 Respiratory Rate 12 Blood Pressure 180/83 H Pulse Oximetry 99 Oxygen Delivery Method Room Air Oxygen Delivery Method Room Air Narrative Exam Narrative: General adult woman alert oriented no acute distress Chest nonlabored respiration Extremities warm well perfused Assessment & Plan Assessment and plan (1) Personal history of colonic polyps: Status: Acute Assessment & Plan narrative: The patient requires colorectal screening and colonoscopy is recommended. Technical details were discussed. Risks, benefits, alternatives explained. Risks including but not limited to myocardial infarction, aspiration, bleeding, pain, missed lesion, incomplete examination, need for further radiographic studies, colonic perforation, and need for major abdominal surgery were discussed. All questions were answered to their satisfaction, and they are in agreement with this plan.
[2023-07-17 09:13] VITALS: BP 120/61; PULSE 63; RESP 18; TEMP 36.4; O2SAT 94
[2023-07-17 09:17] VITALS: BP 127/66; PULSE 64; RESP 24; O2SAT 96
--- NOTE | 2023-07-17 09:18 | P.OP.COLON_ITS ---
Operative Date/Time/Diagnoses Date of procedure: 07/17/23 Time of procedure: 09:19 Pre-op diagnosis: Personal history of colonic polyps Post-op diagnosis: other (Colonic polyp x1) Procedure & Clinicians Study performed: Colonoscopy and polypectomy Same procedure as scheduled: Yes Indications: Colorectal screening Personal history of polyps Surgeon: Angelo Morel Procedure Notes Procedure in detail: The history and physical was performed/updated and the patient is ASA class is 3. The procedure was discussed in detail with the patient. Potential risks complications including infection, bleeding, missed diagnosis, perforation, need for surgery, and were explained. Their questions were answered and informed consent was obtained. Patient was brought to the procedure room and placed standard monitoring equipment. The patient's vital signs were monitored continuously throughout the entire procedure. Prior to starting time-out was performed. The patient was placed in the left lateral recumbent position. Procedural sedation was administered by anesthesia. Examination began with a thorough inspection of the perianal area there was no evidence of fissures, fistulae, external hemorrhoids or cutaneous malignancy. The colonoscopy scope was then placed into the anal canal and was advanced to the cecum, which was identified by the ileocecal valve, the appendiceal orifice and the confluence of the taenia. The scope was t hen slowly withdrawn examining colon thoroughly in all directions, irrigating it of any residual stool. The scope was retroflexed within the rectum The patient tolerated the procedure well. They will be discharged once criteria are met. The prep was of good/excellent quality. The withdrawl time was 11 minutes. FINDINGS * Rectum 3 mm polyp approximately 5 cm from the anal verge removed with biopsy forceps in entirety. * Sigmoid mild diverticulosis. * Redundant sigmoid colon Specimen(s): other (Rectal polyp) Impression: Colonic polyp x1 Post-procedure Plan for aftercare: Follow-up is dependent on pathology findings likely 5 years. Disposition: same day surgery
[2023-07-17 09:22] VITALS: BP 141/69; PULSE 65; RESP 16; O2SAT 96
[2023-07-17 09:27] VITALS: PULSE 67; RESP 20; TEMP 36.1; O2SAT 98
[2023-07-17 09:45] VITALS: BP 159/75; PULSE 69; RESP 16; TEMP 36.1; O2SAT 97
--- NOTE | 2023-07-17 09:48 | SUR.PHASEI ---
Phase 1 - Patient had short run of AFIB. States Oh, I do that, let me do a valsalva maneuver. Patient remained asymptotic and returned to NSR quickly. Anesthesia notified, no new orders noted.
== END 2023-07-17 10:00 | disposition home or self-care (01) ==
PROVIDERS: PCP Internal Medicine; Referring Provider Surgery; Visit Provider Surgery
PROC: 0DJD8ZZ Inspection of Lower Intestinal Tract, Via Natural or Artificial Opening Endoscopic (ICD-10-PCS; CPT 45378; principal; 2023-07-17 08:45)
DX: Z12.11 Encounter for screening for malignant neoplasm of colon (principal); K57.30 Diverticulosis of large intestine without perforation or abscess without bleeding; K62.1 Rectal polyp
CPT/HCPCS: 45380; J2704

== ENCOUNTER → 2024-01-15 08:38 | Outpatient (CLI) | payer MEDICARE, OTHER, SELFPAY ==
[2024-01-15 09:56] LABS: Hemoglobin 11.6 g/dL (12.0-16.0); Mean Corpuscular HGB Conc 34.1 % (30-36); Mean Corpuscular Hemoglobin 31.8 PG (26-34); Mean Corpuscular Volume 93.3 fL (80-100); Platelet Count 251 X10^3/uL (150-400); Red Blood Cell Count 3.64 X10^6/uL (4.0-5.2); Red Cell Distribution Width 14.8 % (11.6-14.8); White Blood Cell Count 4.8 X10^3/uL (4.5-11.0)
[2024-01-15 10:51] LABS: Alanine Aminotransferase 15 IU/L (<35); Albumin 4.2 g/dL (3.5-5.0); Albumin Globulin Ratio 1.8 (1.0-2.8); Alkaline Phosphatase 64 U/L (38-126); Aspartate Aminotransferase 24 IU/L (14-36); BUN Creatinine Ratio 25.2 (6-22); Bilirubin Total 0.5 mg/dL (0.2-1.3); Blood Urea Nitrogen 32 mg/dL (7-17); Calcium 9.7 mg/dL (8.4-10.2); Carbon Dioxide 28 mmol/L (22-32); Chloride 103 mmol/L (98-107); Cholesterol 216 mg/dL (140-199); Estimated Glomerular Filt Rate 44 mL/min (>60); Globulin 2.3 g/dL (1.7-4.1); Glucose 96 mg/dL (80-110); HEMOLYSIS < 15 (0-50); Potassium 4.6 mmol/L (3.4-5.1); Sodium 135 mmol/L (137-145); Total Protein 6.5 g/dL (6.3-8.2); Triglycerides 86 mg/dL (35-150)
[2024-01-15 11:08] LABS: TSH w/ Reflex to FT4 1.14 uIU/mL (0.47-4.68)
[2024-01-15 11:16] LABS: HDL Cholesterol 116 mg/dL (40-60); LDL Cholesterol Calculated 83 mg/dL (<100)
== END ==
PROVIDERS: Family Provider Internal Medicine; PCP Internal Medicine; Referring Provider Internal Medicine; Visit Provider Internal Medicine
DX: E78.2 Mixed hyperlipidemia (principal); I10 Essential (primary) hypertension; I48.0 Paroxysmal atrial fibrillation
CPT/HCPCS: 36415; 80053; 80061; 84443; 85027

== ENCOUNTER 2024-01-23 14:30 | Outpatient (RCR) | payer MEDICARE, OTHER, SELFPAY ==
--- NOTE | 2023-09-05 17:30 | PT.OPPOC ---
Addendum entered and electronically signed by Sandrine Gracia PT 09/05/23 17:30: POC faxed Original Note: Physical, Occupational & Speech Therapy At Current Diagnoses Unilateral primary osteoarthritis, right hip (09/05/23) Difficulty in walking, not elsewhere classified (09/05/23) Abnormal posture (09/05/23) Weakness (09/05/23) Visit Care Team Role Provider Type Jose Matute MD Family Provider Physician Primary Care Provider Specialty: Internal Medicine Address: [address] [place] [address], [address] Email: [email or web address] Celso Avlia MD Attending Provider Non-Staff Referring Provider Specialty: Orthopedic Surgery Address: [address] [place] [address], [address] Email: Plan Of Care PT-OP-T Assessment and Plan Start: 08/29/23 10:56 Freq: Status: Active Protocol: Document 09/05/23 07:29 [facility] (Rec: 09/05/23 11:18 [facility] [id number]) Physical Therapy Assessment Rehab Potential Rehabilitation Potential Good Evaluation Complexity Number of Personal Factors/Comorbidities 3 or More Number of Body Systems Impaired 4 or More Clinical Presentation at Evaluation Evolving Impairments Impairments Activity Tolerance,Balance, Functional Activities, Functional Mobility,Gait,Pain, Posture,ROM,Soft Tissue Mobility,Strength,Transfers Goals balance Short Term Goal (STG) Pt will be able to do SLS B for at least 10 sec. STG Duration 10/21/23 Fish Skinning Machine Feeder Goal (LTG) Pt will be able to do SLS B for at least 15 sec. LTG Duration 11/28/23 strength Short Term Goal (STG) Pt will be indep w/HEP STG Duration 10/12/23 Fish Skinning Machine Feeder Goal (LTG) Pt will score at least 3/5 on LPM in all planes and at least 4+/5 on all B LE MMT to show improved strength in order for pt to hav greater ease with movement. LTG Duration 11/28/23 ROM Short Term Goal (STG) Pt will have enough hip ROM to be able to don and doff shoes and socks w/o inc difficulty STG Duration 10/12/23 Longterm Goal (LTG) Pt will be able to pick things off the ground w/o difficulty or pain. LTG Duration 11/28/23 activities Fish Skinning Machine Feeder Goal (LTG) Pt will be able to walk, do stairs and do all activities around her house and travelling w/o feeling of weakness or fatigue of RLE limiting her LTG Duration 11/28/23 Assessment Summary Assessment Pt presents w/significant R hip arthritis and possible R labral tearing with progressive worsening over the past year until she had an injection in Dec. She has limited R hip ROM especially notable w/flex and ER w/ donning/doffing socks/shoes. 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 She had limited her activity d/t pain until she got the injection and now has returned to small flat walks. She would like PT to help with building strenght and improving ROM to help with pain to put off getting MICHAEL until this fall. Pt does have She would benefit from skilled PT to address hip ROM limits, dec strength, gait impairments and dec balance to be able to cont active lifestyle. Physical Therapy Plan Frequency and Duration Frequency of Treatment 1-2x/wk Duration of treatment (weeks) 12 Plan of Care Start Date 09/05/23 Plan of Care End Date 11/28/23 Therapeutic Interventions Therapeutic Interventions Balance Training,Gait Training ,Home Exercise Program,Joint Mobilizations,Manual Therapy, Neuromuscular Re-education, Orthotic/Prosthetic Management ,Patient/Caregiver Education, Self-Care/Home Management,Soft Tissue Mobilization,Taping, Therapeutic Activities, Therapeutic Exercises Modalities Cold Pack/Ice Massage,Electric Stimulation,Hot Packs, Infrared Therapy,Ultrasound Next Visit Focus/Plan Next Note Type Treatment Note Next Visit Plan HEP: squats, step ups, bridges , sidesteps, clamshells manual: hip mobs, STM to hip and ITB Plan of Care Dates Plan of Care Start Date 09/05/23 Plan of Care End Date 11/28/23 Electronically Signed by: Sandrine Gracia, PT 09/05/23 [id number] If you are in agreement with this Plan of Care, please return a signed and dated copy. I have reviewed this Plan of Care and certify that the skilled therapy services above are required to meet the patient?s needs. Physician Signature Date Printed Name and Credentials Clinical Instructor Signature Printed Name and Credentials
--- NOTE | 2023-09-05 17:30 | PT.OIE ---
Current Diagnoses Unilateral primary osteoarthritis, right hip (09/05/23) Difficulty in walking, not elsewhere classified (09/05/23) Abnormal posture (09/05/23) Weakness (09/05/23) Past Medical History (Last Reviewed 07/17/23 @ 08:35 by Angelo Morel MD) Asymptomatic varicose veins of bilateral lower extremities Bilateral cataracts Breast cancer (~1992) Chicken pox Chronic anticoagulation Essential hypertension Factor 5 Leiden mutation, heterozygous (~2017) History of breast cancer History of colonic polyps History of pulmonary embolism (~2017) Mild HTN Mixed hyperlipidemia Paroxysmal atrial fibrillation (~2017) Primary osteoarthritis involving multiple joints Shoulder pain (~2021) Stage 3b chronic kidney disease (CKD) Past Surgical History (Last Reviewed 07/17/23 @ 08:35 by Angelo Morel MD) Anesthesia H/O right mastectomy (~1992) H/O vaginal hysterectomy History of blepharoplasty History of bunionectomy History of meniscectomy of left knee History of varicose vein stripping Visit Care Team Role Provider Type Jose Matute MD Family Provider Physician Primary Care Provider Specialty: Internal Medicine Address: [address] [place] [address], [address] Email: [email or web address] Celso Avila MD Attending Provider Non-Staff Referring Provider Specialty: Orthopedic Surgery Address: [address] [place] [address], [address] Email: Physical Therapy Initial Evaluation PT-OP-A Visit Information Start: 08/29/23 10:56 Freq: Status: Active Protocol: Document 09/05/23 07:29 [facility] (Rec: 09/05/23 11:18 [facility] [id number]) Out-Patient Physical Therapy Visit Information Visit Information Visit Type Initial Evaluation Visit Note 08/22 Visit Start Time 08:19 Visit Stop Time 09:06 Visit Number 1 Number of PROCESS ARTIST Visits 0 PT-OP-B Current Condition Start: 08/29/23 10:56 Freq: Status: Active Protocol: Document 09/05/23 07:29 [facility] (Rec: 09/05/23 11:18 [facility] [id number]) Current Condition History of Current Condition Onset Date gradually last year spring Current Complaints R hip History of Current Condition Pt reports she is bone on bone per doctor and she is a candidate for hip replacement but started with an injection and that really helped. She feels like h needs strengthening because she has avoided activity. She is hoping for some strengthening. She volunteers for the [employer] in the summer and rides or hikes to get to areas they are working. She noticed getting up/down from the horse was really hard. 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 Pt reprots when pain got excrutiating in Jun, she would have to sit down mid day. She would stop doing stairs. injection was mid jul. Pt consistantly walks about 2-3 miles a day that is pretty much flat. Had to really limit her walking or not walk prior to shot. had to sig limit activity prior to shot Treatment Goals Patient/Caregiver Goals build strength, be able to tie R shoe and don R sock, bending down to pick something off ground; be able to do stairs easier PT-OP-C Subjective Start: 08/29/23 10:56 Freq: Status: Active Protocol: Document 09/05/23 07:29 [facility] (Rec: 09/05/23 11:18 [facility] [id number]) Patient Questionnaires Lower Extremity Functional Scale LEFS Score 59/80 OP-PT Pain Assessment Location R hip Pain Location Details groin Description- Other sharp prior to injection Frequency Intermittent Pain Aggravating Factors Stair Climbing PT-OP-D Balance Start: 08/29/23 10:56 Freq: Status: Active Protocol: Document 09/05/23 07:29 [facility] (Rec: 09/05/23 11:18 [facility] [id number]) Balance Tests Single Limb Standing Single Limb- Right 2 sec Single Limb- Left 3 sec PT-OP-F Manual Assessment Start: 08/29/23 10:56 Freq: Status: Active Protocol: Document 09/05/23 07:29 [facility] (Rec: 09/05/23 11:18 [facility] [id number]) Manual Assessments Joint Mobility Assessment Joint Mobility Assessment clunking and crepetits w/ROM of R hip PT-OP-G Mobility & Gait Start: 08/29/23 10:56 Freq: Status: Active Protocol: Document 09/05/23 07:29 [facility] (Rec: 09/05/23 11:18 [facility] [id number]) OP Gait Assessment Comments Gait Comments hard landing on RLE w/lat lean on RLE PT-OP-J Posture/Palpation/Skin Start: 08/29/23 10:56 Freq: Status: Active Protocol: Document 09/05/23 07:29 [facility] (Rec: 09/05/23 11:18 [facility] [id number]) Posture Evaluation [facility] Postural Classification System Lumbar Protective Mechanism Left AP 1 Lumbar Protective Mechanism Right AP 0 Lumbar Protective Mechanism Left PA 2 Lumbar Protective Mechanism Right PA 1 Comments Posture Comments sheared L w/iliac crest higher on L; equal greater trochanters PT-OP-K Range of Motion Start: 08/29/23 10:56 Freq: Status: Active Protocol: Document 09/05/23 07:29 [facility] (Rec: 09/05/23 11:18 [facility] [id number]) Hip Goniometric Range of Motion Hip Left Active Flexion w/Knee Flexed 105 Straight Leg Raise 91 Right Active Flexion w/Knee Flexed 100 Straight Leg Raise 69 Comments pain w/groin PT-OP-M Strength Start: 08/29/23 10:56 Freq: Status: Active Protocol: Document 09/05/23 07:29 [facility] (Rec: 09/05/23 11:18 [facility] [id number]) Hip Strength Hip Manual Muscle Testing Right Flexion (L2) 3+ Fair+ Extension (S1) 3+ Fair+ Abduction 3+ Fair+ Adduction 2 Poor External Rotation 3+ Fair+ Internal Rotation 5 Normal Left Flexion (L2) 3+ Fair+ Extension (S1) 3+ Fair+ Abduction 3+ Fair+ Adduction 3+ Fair+ External Rotation 4- Good- Internal Rotation 5 Normal Knee Strength Knee Manual Muscle Testing Right Flexion (S2) 4+ Good+ Extension (L3) 4- Good- Left Flexion (S2) 5 Normal Extension (L3) 4 Good Ankle/Foot Strength Ankle and Foot Manual Muscle Testing Right Dorsiflexion (L4) 4+ Good+ Left Dorsiflexion (L4) 5 Normal PT-OP-Q Treatments Start: 08/29/23 10:56 Freq: Status: Active Protocol: Document 09/05/23 07:29 [facility] (Rec: 09/05/23 11:27 [facility] [id number]) Therapeutic Exercises Sitting Exercises figure 4 Side right Reps/Minutes 1 min Manual Therapy Treatment Joint Mobilizations hip Body Position Hooklying Comments 1. inf FM R 2. ER free the ball FM R PT-OP-T Assessment and Plan Start: 08/29/23 10:56 Freq: Status: Active Protocol: Document 09/05/23 07:29 [facility] (Rec: 09/05/23 11:18 [facility] [id number]) Physical Therapy Assessment Rehab Potential Rehabilitation Potential Good Evaluation Complexity Number of Personal Factors/Comorbidities 3 or More Number of Body Systems Impaired 4 or More Clinical Presentation at Evaluation Evolving Impairments Impairments Activity Tolerance,Balance, Functional Activities, Functional Mobility,Gait,Pain, Posture,ROM,Soft Tissue Mobility,Strength,Transfers Goals balance Short Term Goal (STG) Pt will be able to do SLS B for at least 10 sec. STG Duration 10/21/23 Fee Clerk Goal (LTG) Pt will be able to do SLS B for at least 15 sec. LTG Duration 11/28/23 strength Short Term Goal (STG) Pt will be indep w/HEP STG Duration 10/12/23 Fee Clerk Goal (LTG) Pt will score at least 3/5 on LPM in all planes and at least 4+/5 on all B LE MMT to show improved strength in order for pt to hav greater ease with movement. LTG Duration 11/28/23 ROM Short Term Goal (STG) Pt will have enough hip ROM to be able to don and doff shoes and socks w/o inc difficulty STG Duration 10/12/23 Fee Clerk Goal (LTG) Pt will be able to pick things off the ground w/o difficulty or pain. LTG Duration 11/28/23 activities Fee Clerk Goal (LTG) Pt will be able to walk, do stairs and do all activities around her house and travelling w/o feeling of weakness or fatigue of RLE limiting her LTG Duration 11/28/23 Assessment Summary Assessment Pt presents w/significant R hip arthritis and possible R labral tearing with progressive worsening over the past year until she had an injection in Jul. She has limited R hip ROM especially notable w/flex and ER w/ donning/doffing socks/shoes. 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 She had limited her activity d/t pain until she got the injection and now has returned to small flat walks. She would like PT to help with building strenght and improving ROM to help with pain to put off getting MICHAEL until this fall. Pt does have She would benefit from skilled PT to address hip ROM limits, dec strength, gait impairments and dec balance to be able to cont active lifestyle. Physical Therapy Plan Frequency and Duration Frequency of Treatment 1-2x/wk Duration of treatment (weeks) 12 Plan of Care Start Date 09/05/23 Plan of Care End Date 11/28/23 Therapeutic Interventions Therapeutic Interventions Balance Training,Gait Training ,Home Exercise Program,Joint Mobilizations,Manual Therapy, Neuromuscular Re-education, Orthotic/Prosthetic Management ,Patient/Caregiver Education, Self-Care/Home Management,Soft Tissue Mobilization,Taping, Therapeutic Activities, Therapeutic Exercises Modalities Cold Pack/Ice Massage,Electric Stimulation,Hot Packs, Infrared Therapy,Ultrasound Next Visit Focus/Plan Next Note Type Treatment Note Next Visit Plan HEP: squats, step ups, bridges , sidesteps, clamshells manual: hip mobs, STM to hip and ITB
--- NOTE | 2023-09-13 09:49 | PT.OTN ---
Current Diagnoses Unilateral primary osteoarthritis, right hip (09/13/23) Difficulty in walking, not elsewhere classified (09/13/23) Abnormal posture (09/13/23) Weakness (09/13/23) Physical Therapy Treatment Note PT-OP-A Visit Information Start: 08/29/23 10:56 Freq: Status: Active Protocol: Document 09/13/23 09:07 [facility] (Rec: 09/13/23 09:49 [facility] [id number]) Out-Patient Physical Therapy Visit Information Visit Information Visit Type Treatment Note Visit Note 09/22 Visit Start Time 09:05 Visit Stop Time 09:45 Visit Number 2 Number of SEMICONDUCTOR TECHNICIAN Visits 0 PT-OP-B Current Condition Start: 08/29/23 10:56 Freq: Status: Active Protocol: Document 09/05/23 07:29 [facility] (Rec: 09/05/23 11:18 [facility] [id number]) Current Condition History of Current Condition Onset Date gradually last year spring Current Complaints R hip History of Current Condition Pt reports she is bone on bone per doctor and she is a candidate for hip replacement but started with an injection and that really helped. She feels like [facility] needs strengthening because she has avoided activity. She is hoping for some strengthening. She volunteers for the [employer] in the summer and rides or hikes to get to areas they are working. She noticed getting up/down from the horse was really hard. 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 Pt reprots when pain got excrutiating in Jun, she would have to sit down mid day. She would stop doing stairs. injection was mid dec. Pt consistantly walks about 2-3 miles a day that is pretty much flat. Had to really limit her walking or not walk prior to shot. had to sig limit activity prior to shot Treatment Goals Patient/Caregiver Goals build strength, be able to tie R shoe and don R sock, bending down to pick something off ground; be able to do stairs easier PT-OP-C Subjective Start: 08/29/23 10:56 Freq: Status: Active Protocol: Document 09/13/23 09:07 [facility] (Rec: 09/13/23 09:49 [facility] [id number]) OP-PT Subjective Patient Comments Patient Comments Pt reports she just has to be careful w/stretch not to irritate her R knee. has hx of R MCL tear PT-OP-D Balance Start: 08/29/23 10:56 Freq: Status: Active Protocol: Document 09/05/23 07:29 [facility] (Rec: 09/05/23 11:18 [facility] [id number]) Balance Tests Single Limb Standing Single Limb- Right 2 sec Single Limb- Left 3 sec PT-OP-F Manual Assessment Start: 08/29/23 10:56 Freq: Status: Active Protocol: Document 09/05/23 07:29 [facility] (Rec: 09/05/23 11:18 [facility] [id number]) Manual Assessments Joint Mobility Assessment Joint Mobility Assessment clunking and crepetits w/ROM of R hip PT-OP-G Mobility & Gait Start: 08/29/23 10:56 Freq: Status: Active Protocol: Document 09/05/23 07:29 [facility] (Rec: 09/05/23 11:18 [facility] [id number]) OP Gait Assessment Comments Gait Comments hard landing on RLE w/lat lean on RLE PT-OP-J Posture/Palpation/Skin Start: 08/29/23 10:56 Freq: Status: Active Protocol: Document 09/05/23 07:29 [facility] (Rec: 09/05/23 11:18 [facility] [id number]) Posture Evaluation [facility] Postural Classification System Lumbar Protective Mechanism Left AP 1 Lumbar Protective Mechanism Right AP 0 Lumbar Protective Mechanism Left PA 2 Lumbar Protective Mechanism Right PA 1 Comments Posture Comments sheared L w/iliac crest higher on L; equal greater trochanters PT-OP-K Range of Motion Start: 08/29/23 10:56 Freq: Status: Active Protocol: Document 09/05/23 07:29 [facility] (Rec: 09/05/23 11:18 [facility] [id number]) Hip Goniometric Range of Motion Hip Left Active Flexion w/Knee Flexed 105 Straight Leg Raise 91 Right Active Flexion w/Knee Flexed 100 Straight Leg Raise 69 Comments pain w/groin PT-OP-M Strength Start: 08/29/23 10:56 Freq: Status: Active Protocol: Document 09/05/23 07:29 [facility] (Rec: 09/05/23 11:18 [facility] [id number]) Hip Strength Hip Manual Muscle Testing Right Flexion (L2) 3+ Fair+ Extension (S1) 3+ Fair+ Abduction 3+ Fair+ Adduction 2 Poor External Rotation 3+ Fair+ Internal Rotation 5 Normal Left Flexion (L2) 3+ Fair+ Extension (S1) 3+ Fair+ Abduction 3+ Fair+ Adduction 3+ Fair+ External Rotation 4- Good- Internal Rotation 5 Normal Knee Strength Knee Manual Muscle Testing Right Flexion (S2) 4+ Good+ Extension (L3) 4- Good- Left Flexion (S2) 5 Normal Extension (L3) 4 Good Ankle/Foot Strength Ankle and Foot Manual Muscle Testing Right Dorsiflexion (L4) 4+ Good+ Left Dorsiflexion (L4) 5 Normal PT-OP-Q Treatments Start: 08/29/23 10:56 Freq: Status: Active Protocol: Document 09/13/23 09:07 [facility] (Rec: 09/13/23 09:49 [facility] [id number]) Therapeutic Exercises Supine Exercises bridge Supine Exercise Name w/alt march Side bilateral Reps/Minutes 10 Sidelying Exercises clamshell Side bilateral Reps/Minutes 10 Sitting Exercises figure 4 Side right Reps/Minutes 1 min Standing Exercises sidestep Side bilateral Equipment Used L1 Reps/Minutes 20ft squat Standing Exercise Name sit to stand Side bilateral Reps/Minutes 15 Comments cues for knee position Gait Training Gait Activity wt shift Description fwd B Device Used mirror Comments 12 ea step up Description b Device Used 6 in step w/focus on Wt shift to SL Comments 12x Manual Therapy Treatment Soft Tissue Mobilization lat Body Location R Mobilization Type Rolling Intensity/Depth Moderate Body Position Hooklying Comments ITB, lat glutes add Body Location R Mobilization Type Rolling Intensity/Depth Moderate Body Position Hooklying Comments w/ER Joint Mobilizations hip Body Position Hooklying Comments 1. iR free the ball FM R 2. ER free the ball FM R PT-OP-T Assessment and Plan Start: 08/29/23 10:56 Freq: Status: Active Protocol: Document 09/13/23 09:07 [facility] (Rec: 09/13/23 09:49 [facility] [id number]) Physical Therapy Assessment Goals balance Short Term Goal (STG) Pt will be able to do SLS B for at least 10 sec. STG Duration 10/21/23 Shelter Goal (LTG) Pt will be able to do SLS B for at least 15 sec. LTG Duration 11/28/23 strength Short Term Goal (STG) Pt will be indep w/HEP STG Duration 10/12/23 Shelter Goal (LTG) Pt will score at least 3/5 on LPM in all planes and at least 4+/5 on all B LE MMT to show improved strength in order for pt to hav greater ease with movement. LTG Duration 11/28/23 ROM Short Term Goal (STG) Pt will have enough hip ROM to be able to don and doff shoes and socks w/o inc difficulty STG Duration 10/12/23 Aircraft Technician Goal (LTG) Pt will be able to pick things off the ground w/o difficulty or pain. LTG Duration 11/28/23 activities Shelter Goal (LTG) Pt will be able to walk, do stairs and do all activities around her house and travelling w/o feeling of weakness or fatigue of RLE limiting her LTG Duration 11/28/23 Assessment Summary Assessment Pt did well withe xercises but does show more difficulty on R side. She struggled w/wt shift to RLE on stairs and in standing but improves w/cues. She improved ER w/manual Physical Therapy Plan Frequency and Duration Frequency of Treatment 1-2x/wk Duration of treatment (weeks) 12 Plan of Care Start Date 09/05/23 Plan of Care End Date 11/28/23 Next Visit Focus/Plan Next Note Type Treatment Note Next Visit Plan review HEP: squats, step ups, bridgesw/ march, sidesteps, clamshells manual: hip mobs, STM to hip and ITB
--- NOTE | 2023-09-18 09:01 | PT.OTN ---
Current Diagnoses Unilateral primary osteoarthritis, right hip (09/18/23) Difficulty in walking, not elsewhere classified (09/18/23) Abnormal posture (09/18/23) Weakness (09/18/23) Physical Therapy Treatment Note PT-OP-A Visit Information Start: 08/29/23 10:56 Freq: Status: Active Protocol: Document 09/18/23 07:30 [facility] (Rec: 09/18/23 09:01 [facility] [id number]) Out-Patient Physical Therapy Visit Information Visit Information Visit Type Treatment Note Visit Note 10/20 Visit Start Time 08:10 Visit Stop Time 09:55 Visit Number 3 Number of BROOCH MAKER NOVELTY Visits 0 PT-OP-B Current Condition Start: 08/29/23 10:56 Freq: Status: Active Protocol: Document 09/05/23 07:29 [facility] (Rec: 09/05/23 11:18 [facility] [id number]) Current Condition History of Current Condition Onset Date gradually last year spring Current Complaints R hip History of Current Condition Pt reports she is bone on bone per doctor and she is a candidate for hip replacement but started with an injection and that really helped. She feels like [facility] needs strengthening because she has avoided activity. She is hoping for some strengthening. She volunteers for the [employer] in the summer and rides or hikes to get to areas they are working. She noticed getting up/down from the horse was really hard. 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 Pt reprots when pain got excrutiating in Jun, she would have to sit down mid day. She would stop doing stairs. injection was mid dec. Pt consistantly walks about 2-3 miles a day that is pretty much flat. Had to really limit her walking or not walk prior to shot. had to sig limit activity prior to shot Treatment Goals Patient/Caregiver Goals build strength, be able to tie R shoe and don R sock, bending down to pick something off ground; be able to do stairs easier PT-OP-C Subjective Start: 08/29/23 10:56 Freq: Status: Active Protocol: Document 09/18/23 07:30 [facility] (Rec: 09/18/23 09:01 [facility] [id number]) OP-PT Subjective Patient Comments Patient Comments Notes she does notice some irritation w/exercises but feels like [facility] is working hip PT-OP-D Balance Start: 08/29/23 10:56 Freq: Status: Active Protocol: Document 09/05/23 07:29 [facility] (Rec: 09/05/23 11:18 [facility] [id number]) Balance Tests Single Limb Standing Single Limb- Right 2 sec Single Limb- Left 3 sec PT-OP-F Manual Assessment Start: 08/29/23 10:56 Freq: Status: Active Protocol: Document 09/05/23 07:29 [facility] (Rec: 09/05/23 11:18 [facility] [id number]) Manual Assessments Joint Mobility Assessment Joint Mobility Assessment clunking and crepetits w/ROM of R hip PT-OP-G Mobility & Gait Start: 08/29/23 10:56 Freq: Status: Active Protocol: Document 09/05/23 07:29 [facility] (Rec: 09/05/23 11:18 [facility] [id number]) OP Gait Assessment Comments Gait Comments hard landing on RLE w/lat lean on RLE PT-OP-J Posture/Palpation/Skin Start: 08/29/23 10:56 Freq: Status: Active Protocol: Document 09/05/23 07:29 [facility] (Rec: 09/05/23 11:18 [facility] [id number]) Posture Evaluation Damián Postural Classification System Lumbar Protective Mechanism Left AP 1 Lumbar Protective Mechanism Right AP 0 Lumbar Protective Mechanism Left PA 2 Lumbar Protective Mechanism Right PA 1 Comments Posture Comments sheared L w/iliac crest higher on L; equal greater trochanters PT-OP-K Range of Motion Start: 08/29/23 10:56 Freq: Status: Active Protocol: Document 09/05/23 07:29 [facility] (Rec: 09/05/23 11:18 [facility] [id number]) Hip Goniometric Range of Motion Hip Left Active Flexion w/Knee Flexed 105 Straight Leg Raise 91 Right Active Flexion w/Knee Flexed 100 Straight Leg Raise 69 Comments pain w/groin PT-OP-M Strength Start: 08/29/23 10:56 Freq: Status: Active Protocol: Document 09/05/23 07:29 [facility] (Rec: 09/05/23 11:18 [facility] [id number]) Hip Strength Hip Manual Muscle Testing Right Flexion (L2) 3+ Fair+ Extension (S1) 3+ Fair+ Abduction 3+ Fair+ Adduction 2 Poor External Rotation 3+ Fair+ Internal Rotation 5 Normal Left Flexion (L2) 3+ Fair+ Extension (S1) 3+ Fair+ Abduction 3+ Fair+ Adduction 3+ Fair+ External Rotation 4- Good- Internal Rotation 5 Normal Knee Strength Knee Manual Muscle Testing Right Flexion (S2) 4+ Good+ Extension (L3) 4- Good- Left Flexion (S2) 5 Normal Extension (L3) 4 Good Ankle/Foot Strength Ankle and Foot Manual Muscle Testing Right Dorsiflexion (L4) 4+ Good+ Left Dorsiflexion (L4) 5 Normal PT-OP-Q Treatments Start: 08/29/23 10:56 Freq: Status: Active Protocol: Document 09/18/23 07:30 [facility] (Rec: 09/18/23 09:01 [facility] [id number]) Therapeutic Exercises Supine Exercises bridge Supine Exercise Name w/alt march Side bilateral Reps/Minutes 8 Comments cues for breathing Sidelying Exercises clamshell Side bilateral Equipment Used L1 Reps/Minutes 10 Standing Exercises quad stretch Standing Exercise Name lower leg on chair Side bilateral Reps/Minutes 30 sec ea lat step up Standing Exercise Name up/down Side bilateral Reps/Minutes 10 sidestep Side bilateral Equipment Used L1 Reps/Minutes 20ft ea Comments cue for pelvic tilt for neutral core squat Standing Exercise Name partial squat-comfortable range Side bilateral Equipment Used tband at knees Reps/Minutes 15 Comments cues for knee position Gait Training Gait Activity wt shift Description fwd B Device Used mirror Comments 12 ea step up Description b Device Used 6 in step w/focus on Wt shift to SL Comments 12x Manual Therapy Treatment Soft Tissue Mobilization hip flexor Body Location r iliacus Mobilization Type Sustained Pressure Intensity/Depth Moderate lat Body Location R Mobilization Type Rolling Intensity/Depth Moderate Body Position Hooklying Comments ITB, lat glutes Joint Mobilizations innominate Comments L caudal & B ER FM hip Comments prone hip on axis R ER FM; s/l hip abd R FM PT-OP-T Assessment and Plan Start: 08/29/23 10:56 Freq: Status: Active Protocol: Document 09/18/23 07:30 [facility] (Rec: 09/18/23 09:01 [facility] [id number]) Physical Therapy Assessment Goals balance Short Term Goal (STG) Pt will be able to do SLS B for at least 10 sec. STG Duration 10/21/23 Broom Machine Operator Goal (LTG) Pt will be able to do SLS B for at least 15 sec. LTG Duration 11/28/23 strength Short Term Goal (STG) Pt will be indep w/HEP STG Duration 10/12/23 Broom Machine Operator Goal (LTG) Pt will score at least 3/5 on LPM in all planes and at least 4+/5 on all B LE MMT to show improved strength in order for pt to hav greater ease with movement. LTG Duration 11/28/23 ROM Short Term Goal (STG) Pt will have enough hip ROM to be able to don and doff shoes and socks w/o inc difficulty STG Duration 10/12/23 Half-Way Goal (LTG) Pt will be able to pick things off the ground w/o difficulty or pain. LTG Duration 11/28/23 activities Half-Way Goal (LTG) Pt will be able to walk, do stairs and do all activities around her house and travelling w/o feeling of weakness or fatigue of RLE limiting her LTG Duration 11/28/23 Assessment Summary Assessment Pt has improved ER w/foot on leg. She did better w/ strengthening today and adjusting helped dec pain during them. She had better step up and wt shift form. Physical Therapy Plan Frequency and Duration Frequency of Treatment 1-2x/wk Duration of treatment (weeks) 12 Plan of Care Start Date 09/05/23 Plan of Care End Date 11/28/23 Next Visit Focus/Plan Next Note Type Treatment Note Next Visit Plan manual: hip and pelvis mobs, STM to hip and ITB and hip flexor try balance board and balance exercises review exercises as needed and advance as able
--- NOTE | 2023-09-21 10:32 | PT.OTN ---
Current Diagnoses Unilateral primary osteoarthritis, right hip (09/21/23) Difficulty in walking, not elsewhere classified (09/21/23) Abnormal posture (09/21/23) Weakness (09/21/23) Physical Therapy Treatment Note PT-OP-A Visit Information Start: 08/29/23 10:56 Freq: Status: Active Protocol: Document 09/21/23 09:52 [facility] (Rec: 09/21/23 10:34 SP [id number]) Out-Patient Physical Therapy Visit Information Visit Information Visit Type Treatment Note Visit Note 11/20 Visit Start Time 09:52 Visit Stop Time 10:32 Visit Number 4 Number of CORK FLOOR INSTALLER Visits 1 PT-OP-B Current Condition Start: 08/29/23 10:56 Freq: Status: Active Protocol: Document 09/05/23 07:29 [facility] (Rec: 09/05/23 11:18 LR [id number]) Current Condition History of Current Condition Onset Date gradually last year spring Current Complaints R hip History of Current Condition Pt reports she is bone on bone per doctor and she is a candidate for hip replacement but started with an injection and that really helped. She feels like [facility] needs strengthening because she has avoided activity. She is hoping for some strengthening. She volunteers for the [employer] in the summer and rides or hikes to get to areas they are working. She noticed getting up/down from the horse was really hard. 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 Pt reprots when pain got excrutiating in Jun, she would have to sit down mid day. She would stop doing stairs. injection was mid dec. Pt consistantly walks about 2-3 miles a day that is pretty much flat. Had to really limit her walking or not walk prior to shot. had to sig limit activity prior to shot Treatment Goals Patient/Caregiver Goals build strength, be able to tie R shoe and don R sock, bending down to pick something off ground; be able to do stairs easier PT-OP-C Subjective Start: 08/29/23 10:56 Freq: Status: Active Protocol: Document 09/21/23 09:52 SP (Rec: 09/21/23 10:34 SP [id number]) OP-PT Subjective Patient Comments Patient Comments Pt reports feels muscle challenged HEP after last ttx and compliant with HEP. Able reach back ankle to do quad stretch now. PT-OP-D Balance Start: 08/29/23 10:56 Freq: Status: Active Protocol: Document 09/05/23 07:29 [facility] (Rec: 09/05/23 11:18 [facility] [id number]) Balance Tests Single Limb Standing Single Limb- Right 2 sec Single Limb- Left 3 sec PT-OP-F Manual Assessment Start: 08/29/23 10:56 Freq: Status: Active Protocol: Document 09/05/23 07:29 [facility] (Rec: 09/05/23 11:18 [facility] [id number]) Manual Assessments Joint Mobility Assessment Joint Mobility Assessment clunking and crepetits w/ROM of R hip PT-OP-G Mobility & Gait Start: 08/29/23 10:56 Freq: Status: Active Protocol: Document 09/05/23 07:29 [facility] (Rec: 09/05/23 11:18 [facility] [id number]) OP Gait Assessment Comments Gait Comments hard landing on RLE w/lat lean on RLE PT-OP-J Posture/Palpation/Skin Start: 08/29/23 10:56 Freq: Status: Active Protocol: Document 09/05/23 07:29 [facility] (Rec: 09/05/23 11:18 [facility] [id number]) Posture Evaluation Damián Postural Classification System Lumbar Protective Mechanism Left AP 1 Lumbar Protective Mechanism Right AP 0 Lumbar Protective Mechanism Left PA 2 Lumbar Protective Mechanism Right PA 1 Comments Posture Comments sheared L w/iliac crest higher on L; equal greater trochanters PT-OP-K Range of Motion Start: 08/29/23 10:56 Freq: Status: Active Protocol: Document 09/05/23 07:29 [facility] (Rec: 09/05/23 11:18 [facility] [id number]) Hip Goniometric Range of Motion Hip Left Active Flexion w/Knee Flexed 105 Straight Leg Raise 91 Right Active Flexion w/Knee Flexed 100 Straight Leg Raise 69 Comments pain w/groin PT-OP-M Strength Start: 08/29/23 10:56 Freq: Status: Active Protocol: Document 09/05/23 07:29 [facility] (Rec: 09/05/23 11:18 [facility] [id number]) Hip Strength Hip Manual Muscle Testing Right Flexion (L2) 3+ Fair+ Extension (S1) 3+ Fair+ Abduction 3+ Fair+ Adduction 2 Poor External Rotation 3+ Fair+ Internal Rotation 5 Normal Left Flexion (L2) 3+ Fair+ Extension (S1) 3+ Fair+ Abduction 3+ Fair+ Adduction 3+ Fair+ External Rotation 4- Good- Internal Rotation 5 Normal Knee Strength Knee Manual Muscle Testing Right Flexion (S2) 4+ Good+ Extension (L3) 4- Good- Left Flexion (S2) 5 Normal Extension (L3) 4 Good Ankle/Foot Strength Ankle and Foot Manual Muscle Testing Right Dorsiflexion (L4) 4+ Good+ Left Dorsiflexion (L4) 5 Normal PT-OP-Q Treatments Start: 08/29/23 10:56 Freq: Status: Active Protocol: Document 09/21/23 09:52 SP (Rec: 09/21/23 10:34 SP [id number]) Therapeutic Exercises Supine Exercises bridge Supine Exercise Name w/alt march Side bilateral Reps/Minutes 8 x2 sets Comments cues for breathing, lower lift Sidelying Exercises clamshell Side bilateral Equipment Used L1 Reps/Minutes 20 reps Comments good form, glut med tiring Sitting Exercises hip ER nuñez taps Sitting Exercise Name added to HEP Side bilateral Reps/Minutes 5 reps eachLE Comments good feedback tiring hip, cued postural& neck alignment figure 4 Side right Reps/Minutes 1 min Standing Exercises quad stretch Standing Exercise Name HEP reviewed Side bilateral Resistance grasp nuñez pull foot buttocks Equipment Used rail support opp UE (no need chair) Reps/Minutes 15 sec x3 each LE Comments improved quad flexibility in standing lat step up Standing Exercise Name up/down Side bilateral Equipment Used 6>4>2 step Reps/Minutes 10 Comments cued knee behind forefoot, hip hinge- good glut tiring sidestep Standing Exercise Name F/B/L Side bilateral Equipment Used L1 at ankles Reps/Minutes 20ft ea 2 laps each direction Comments cue for pelvic tilt for neutral core, slower soft stepping PT-OP-T Assessment and Plan Start: 08/29/23 10:56 Freq: Status: Active Protocol: Document 09/21/23 09:52 SP (Rec: 09/21/23 10:34 SP [id number]) Physical Therapy Assessment Goals balance Short Term Goal (STG) Pt will be able to do SLS B for at least 10 sec. STG Duration 10/21/23 Custodial Goal (LTG) Pt will be able to do SLS B for at least 15 sec. LTG Duration 11/28/23 strength Short Term Goal (STG) Pt will be indep w/HEP STG Duration 10/12/23 Trash Man Goal (LTG) Pt will score at least 3/5 on LPM in all planes and at least 4+/5 on all B LE MMT to show improved strength in order for pt to hav greater ease with movement. LTG Duration 11/28/23 ROM Short Term Goal (STG) Pt will have enough hip ROM to be able to don and doff shoes and socks w/o inc difficulty STG Duration 10/12/23 Trash Man Goal (LTG) Pt will be able to pick things off the ground w/o difficulty or pain. LTG Duration 11/28/23 activities Custodial Goal (LTG) Pt will be able to walk, do stairs and do all activities around her house and travelling w/o feeling of weakness or fatigue of RLE limiting her LTG Duration 11/28/23 Assessment Summary Assessment Tx focused on quality HEP review. Cues required for slower pacing reps, TA and soft lower/lift transition during bridge october and soft foot contact stepping to allow spinal stabilization and strengthening for carryover gait and balance. She is gaining flexibility with allowance to complete quad stretching in standing grasp ankle pull to toward buttocks good form. Added hip ER nuñez taps seated to gain ROM and strength to cross LE over opp knee for dressing and don/doff shoes/socks without UE support. Physical Therapy Plan Frequency and Duration Frequency of Treatment 1-2x/wk Duration of treatment (weeks) 12 Plan of Care Start Date 09/05/23 Plan of Care End Date 11/28/23 Therapeutic Interventions Therapeutic Interventions Balance Training,Gait Training ,Home Exercise Program,Joint Mobilizations,Manual Therapy, Neuromuscular Re-education, Orthotic/Prosthetic Management ,Patient/Caregiver Education, Self-Care/Home Management,Soft Tissue Mobilization,Taping, Therapeutic Activities, Therapeutic Exercises Modalities Cold Pack/Ice Massage,Electric Stimulation,Hot Packs, Infrared Therapy,Ultrasound Next Visit Focus/Plan Next Note Type Treatment Note Next Visit Plan manual: hip and pelvis mobs, STM to hip and ITB and hip flexor try balance board and balance exercises review exercises as needed and advance as able
--- NOTE | 2023-09-25 09:04 | PT.OTN ---
Current Diagnoses Unilateral primary osteoarthritis, right hip (09/25/23) Difficulty in walking, not elsewhere classified (09/25/23) Abnormal posture (09/25/23) Weakness (09/25/23) Physical Therapy Treatment Note PT-OP-A Visit Information Start: 08/29/23 10:56 Freq: Status: Active Protocol: Document 09/25/23 08:17 [facility] (Rec: 09/25/23 09:04 [facility] [id number]) Out-Patient Physical Therapy Visit Information Visit Information Visit Type Treatment Note Visit Note 12/20 Visit Start Time 08:19 Visit Number 5 Number of BOWL TURNER Visits 0 PT-OP-B Current Condition Start: 08/29/23 10:56 Freq: Status: Active Protocol: Document 09/05/23 07:29 [facility] (Rec: 09/05/23 11:18 [facility] [id number]) Current Condition History of Current Condition Onset Date gradually last year spring Current Complaints R hip History of Current Condition Pt reports she is bone on bone per doctor and she is a candidate for hip replacement but started with an injection and that really helped. She feels like [facility] because she has avoided activity. She is hoping for some strengthening. She volunteers for the [employer] in the summer and rides or hikes to get to areas they are working. She noticed getting up/down from the horse was really hard. 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 Pt reprots when pain got excrutiating in Jun, she would have to sit down mid day. She would stop doing stairs. injection was mid dec. Pt consistantly walks about 2-3 miles a day that is pretty much flat. Had to really limit her walking or not walk prior to shot. had to sig limit activity prior to shot Treatment Goals Patient/Caregiver Goals build strength, be able to tie R shoe and don R sock, bending down to pick something off ground; be able to do stairs easier PT-OP-C Subjective Start: 08/29/23 10:56 Freq: Status: Active Protocol: Document 09/25/23 08:17 [facility] (Rec: 09/25/23 09:04 [facility] [id number]) OP-PT Subjective Patient Comments Patient Comments pt reports she felt worked afte last session. feels stiff PT-OP-D Balance Start: 08/29/23 10:56 Freq: Status: Active Protocol: Document 09/05/23 07:29 [facility] (Rec: 09/05/23 11:18 [facility] [id number]) Balance Tests Single Limb Standing Single Limb- Right 2 sec Single Limb- Left 3 sec PT-OP-F Manual Assessment Start: 08/29/23 10:56 Freq: Status: Active Protocol: Document 09/05/23 07:29 [facility] (Rec: 09/05/23 11:18 [facility] [id number]) Manual Assessments Joint Mobility Assessment Joint Mobility Assessment clunking and crepetits w/ROM of R hip PT-OP-G Mobility & Gait Start: 08/29/23 10:56 Freq: Status: Active Protocol: Document 09/05/23 07:29 [facility] (Rec: 09/05/23 11:18 [facility] [id number]) OP Gait Assessment Comments Gait Comments hard landing on RLE w/lat lean on RLE PT-OP-J Posture/Palpation/Skin Start: 08/29/23 10:56 Freq: Status: Active Protocol: Document 09/05/23 07:29 [facility] (Rec: 09/05/23 11:18 [facility] [id number]) Posture Evaluation Damián Postural Classification System Lumbar Protective Mechanism Left AP 1 Lumbar Protective Mechanism Right AP 0 Lumbar Protective Mechanism Left PA 2 Lumbar Protective Mechanism Right PA 1 Comments Posture Comments sheared L w/iliac crest higher on L; equal greater trochanters PT-OP-K Range of Motion Start: 08/29/23 10:56 Freq: Status: Active Protocol: Document 09/05/23 07:29 [facility] (Rec: 09/05/23 11:18 [facility] [id number]) Hip Goniometric Range of Motion Hip Left Active Flexion w/Knee Flexed 105 Straight Leg Raise 91 Right Active Flexion w/Knee Flexed 100 Straight Leg Raise 69 Comments pain w/groin PT-OP-M Strength Start: 08/29/23 10:56 Freq: Status: Active Protocol: Document 09/05/23 07:29 [facility] (Rec: 09/05/23 11:18 [facility] [id number]) Hip Strength Hip Manual Muscle Testing Right Flexion (L2) 3+ Fair+ Extension (S1) 3+ Fair+ Abduction 3+ Fair+ Adduction 2 Poor External Rotation 3+ Fair+ Internal Rotation 5 Normal Left Flexion (L2) 3+ Fair+ Extension (S1) 3+ Fair+ Abduction 3+ Fair+ Adduction 3+ Fair+ External Rotation 4- Good- Internal Rotation 5 Normal Knee Strength Knee Manual Muscle Testing Right Flexion (S2) 4+ Good+ Extension (L3) 4- Good- Left Flexion (S2) 5 Normal Extension (L3) 4 Good Ankle/Foot Strength Ankle and Foot Manual Muscle Testing Right Dorsiflexion (L4) 4+ Good+ Left Dorsiflexion (L4) 5 Normal PT-OP-Q Treatments Start: 08/29/23 10:56 Freq: Status: Active Protocol: Document 09/25/23 08:17 [facility] (Rec: 09/25/23 09:04 [facility] [id number]) Gym Equipment Shuttle Balance red clips Comments fwd and side: WBOS and NBOS fwd: staggered stance B Therapeutic Exercises Supine Exercises bridge Supine Exercise Name w/alt march Side bilateral Reps/Minutes 4 Comments cues for breathing & control Sidelying Exercises clamshell Side bilateral Equipment Used L2 Reps/Minutes 8 Comments cues for neutral spine Standing Exercises squat Standing Exercise Name partial squat-comfortable range Side bilateral Equipment Used L2 tband at knees Reps/Minutes 15 Comments cues for knee position Manual Therapy Treatment Soft Tissue Mobilization hip flexor Body Location r iliacus Mobilization Type Sustained Pressure Intensity/Depth Moderate Comments w/hip E lat Body Location R Mobilization Type Rolling Intensity/Depth Moderate Body Position Hooklying Comments ITB, lat glutes, HS Joint Mobilizations hip Comments R free the ball ER FM PT-OP-T Assessment and Plan Start: 08/29/23 10:56 Freq: Status: Active Protocol: Document 09/25/23 08:17 [facility] (Rec: 09/25/23 09:04 [facility] [id number]) Physical Therapy Assessment Goals balance Short Term Goal (STG) Pt will be able to do SLS B for at least 10 sec. STG Duration 10/21/23 Physics Professor Goal (LTG) Pt will be able to do SLS B for at least 15 sec. LTG Duration 11/28/23 strength Short Term Goal (STG) Pt will be indep w/HEP STG Duration 10/12/23 Physics Professor Goal (LTG) Pt will score at least 3/5 on LPM in all planes and at least 4+/5 on all B LE MMT to show improved strength in order for pt to hav greater ease with movement. LTG Duration 11/28/23 ROM Short Term Goal (STG) Pt will have enough hip ROM to be able to don and doff shoes and socks w/o inc difficulty STG Duration 10/12/23 Physics Professor Goal (LTG) Pt will be able to pick things off the ground w/o difficulty or pain. LTG Duration 11/28/23 activities Jail Goal (LTG) Pt will be able to walk, do stairs and do all activities around her house and travelling w/o feeling of weakness or fatigue of RLE limiting her LTG Duration 11/28/23 Assessment Summary Assessment Pt did better with execise performance and followed cues throughout. She was challenged by balance and had much impoved hip flex and ER w/o pain. Physical Therapy Plan Frequency and Duration Frequency of Treatment 1-2x/wk Duration of treatment (weeks) 12 Plan of Care Start Date 09/05/23 Plan of Care End Date 11/28/23 Next Visit Focus/Plan Next Note Type Treatment Note Next Visit Plan manual: hip and pelvis mobs, STM to hip and ITB and hip flexor try balance board and balance exercises review exercises as needed and advance as able
--- NOTE | 2023-09-27 09:45 | PT.OTN ---
Current Diagnoses Unilateral primary osteoarthritis, right hip (09/27/23) Difficulty in walking, not elsewhere classified (09/27/23) Abnormal posture (09/27/23) Weakness (09/27/23) Physical Therapy Treatment Note PT-OP-A Visit Information Start: 08/29/23 10:56 Freq: Status: Active Protocol: Document 09/27/23 09:02 SP (Rec: 09/27/23 09:55 SP [id number]) Out-Patient Physical Therapy Visit Information Visit Information Visit Type Treatment Note Visit Note 01/20 Visit Start Time 09:02 Visit Stop Time 09:45 Visit Number 6 Number of PARKING ENFORCEMENT OFFICER Visits 1 PT-OP-B Current Condition Start: 08/29/23 10:56 Freq: Status: Active Protocol: Document 09/05/23 07:29 LR (Rec: 09/05/23 11:18 LR [id number]) Current Condition History of Current Condition Onset Date gradually last year spring Current Complaints R hip History of Current Condition Pt reports she is bone on bone per doctor and she is a candidate for hip replacement but started with an injection and that really helped. She feels like [facility] needs strengthening because she has avoided activity. She is hoping for some strengthening. She volunteers for the [employer] in the summer and rides or hikes to get to areas they are working. She noticed getting up/down from the horse was really hard. 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 Pt reprots when pain got excrutiating in Jun, she would have to sit down mid day. She would stop doing stairs. injection was mid dec. Pt consistantly walks about 2-3 miles a day that is pretty much flat. Had to really limit her walking or not walk prior to shot. had to sig limit activity prior to shot Treatment Goals Patient/Caregiver Goals build strength, be able to tie R shoe and don R sock, bending down to pick something off ground; be able to do stairs easier PT-OP-C Subjective Start: 08/29/23 10:56 Freq: Status: Active Protocol: Document 09/27/23 09:02 SP (Rec: 09/27/23 09:55 SP [id number]) OP-PT Subjective Patient Comments Patient Comments Pt reported was sore after last tx, need #2 TB for home. PT-OP-D Balance Start: 08/29/23 10:56 Freq: Status: Active Protocol: Document 09/05/23 07:29 [facility] (Rec: 09/05/23 11:18 [facility] [id number]) Balance Tests Single Limb Standing Single Limb- Right 2 sec Single Limb- Left 3 sec PT-OP-F Manual Assessment Start: 08/29/23 10:56 Freq: Status: Active Protocol: Document 09/05/23 07:29 [facility] (Rec: 09/05/23 11:18 [facility] [id number]) Manual Assessments Joint Mobility Assessment Joint Mobility Assessment clunking and crepetits w/ROM of R hip PT-OP-G Mobility & Gait Start: 08/29/23 10:56 Freq: Status: Active Protocol: Document 09/05/23 07:29 [facility] (Rec: 09/05/23 11:18 [facility] [id number]) OP Gait Assessment Comments Gait Comments hard landing on RLE w/lat lean on RLE PT-OP-J Posture/Palpation/Skin Start: 08/29/23 10:56 Freq: Status: Active Protocol: Document 09/05/23 07:29 [facility] (Rec: 09/05/23 11:18 [facility] [id number]) Posture Evaluation Damián Postural Classification System Lumbar Protective Mechanism Left AP 1 Lumbar Protective Mechanism Right AP 0 Lumbar Protective Mechanism Left PA 2 Lumbar Protective Mechanism Right PA 1 Comments Posture Comments sheared L w/iliac crest higher on L; equal greater trochanters PT-OP-K Range of Motion Start: 08/29/23 10:56 Freq: Status: Active Protocol: Document 09/05/23 07:29 [facility] (Rec: 09/05/23 11:18 [facility] [id number]) Hip Goniometric Range of Motion Hip Left Active Flexion w/Knee Flexed 105 Straight Leg Raise 91 Right Active Flexion w/Knee Flexed 100 Straight Leg Raise 69 Comments pain w/groin PT-OP-M Strength Start: 08/29/23 10:56 Freq: Status: Active Protocol: Document 09/05/23 07:29 [facility] (Rec: 09/05/23 11:18 [facility] [id number]) Hip Strength Hip Manual Muscle Testing Right Flexion (L2) 3+ Fair+ Extension (S1) 3+ Fair+ Abduction 3+ Fair+ Adduction 2 Poor External Rotation 3+ Fair+ Internal Rotation 5 Normal Left Flexion (L2) 3+ Fair+ Extension (S1) 3+ Fair+ Abduction 3+ Fair+ Adduction 3+ Fair+ External Rotation 4- Good- Internal Rotation 5 Normal Knee Strength Knee Manual Muscle Testing Right Flexion (S2) 4+ Good+ Extension (L3) 4- Good- Left Flexion (S2) 5 Normal Extension (L3) 4 Good Ankle/Foot Strength Ankle and Foot Manual Muscle Testing Right Dorsiflexion (L4) 4+ Good+ Left Dorsiflexion (L4) 5 Normal PT-OP-Q Treatments Start: 08/29/23 10:56 Freq: Status: Active Protocol: Document 09/27/23 09:02 SP (Rec: 09/27/23 09:55 SP [id number]) Therapeutic Exercises Supine Exercises bridge Supine Exercise Name w/alt march Side bilateral Reps/Minutes 4 x3 Comments cues for breathing & control Sidelying Exercises clamshell Side bilateral Equipment Used L2 at thighs (aqua green) Reps/Minutes 10 Comments cues for neutral spine, TA draw in, tactil cue stacked alignment Standing Exercises adductor stretch Standing Exercise Name added to HEP as needed Resistance R>L Reps/Minutes 30 Comments cued contact table, range good feedback stretch lat step up Standing Exercise Name up/down Side bilateral Resistance L>R weakness Equipment Used 4>6 step (opp LE PF touch floor), contact rail Reps/Minutes 10 each side Comments cued knee behind forefoot, level hip sidestep Standing Exercise Name F/B/L Side bilateral Equipment Used L2 shins>ankles Reps/Minutes 20ft ea 2 laps each direction Comments cue for pelvic tilt for neutral core, no scuff return, mini squat pos squat Standing Exercise Name partial squat-comfortable range Side bilateral Resistance L2 tband at knees Equipment Used chair target hip hinge hover Reps/Minutes 15 Comments cues for knee position, wt shift L midline Manual Therapy Treatment Soft Tissue Mobilization hip flexor Body Location R Iliacus distal Mobilization Type Sustained Pressure Intensity/Depth Moderate Comments w/hip Ext add Body Location R Gracilus, Add Longus ( proximal) Mobilization Type Rolling Intensity/Depth Moderate Body Position Hooklying Comments / FM: hip ER, add/abd PT-OP-T Assessment and Plan Start: 08/29/23 10:56 Freq: Status: Active Protocol: Document 09/27/23 09:02 SP (Rec: 09/27/23 09:55 SP [id number]) Physical Therapy Assessment Goals balance Short Term Goal (STG) Pt will be able to do SLS B for at least 10 sec. STG Duration 10/21/23 Community Outreach Coordinator Goal (LTG) Pt will be able to do SLS B for at least 15 sec. LTG Duration 11/28/23 strength Short Term Goal (STG) Pt will be indep w/HEP STG Duration 10/12/23 Community Outreach Coordinator Goal (LTG) Pt will score at least 3/5 on LPM in all planes and at least 4+/5 on all B LE MMT to show improved strength in order for pt to hav greater ease with movement. LTG Duration 11/28/23 ROM Short Term Goal (STG) Pt will have enough hip ROM to be able to don and doff shoes and socks w/o inc difficulty STG Duration 10/12/23 Community Outreach Coordinator Goal (LTG) Pt will be able to pick things off the ground w/o difficulty or pain. LTG Duration 11/28/23 activities Prison Goal (LTG) Pt will be able to walk, do stairs and do all activities around her house and travelling w/o feeling of weakness or fatigue of RLE limiting her LTG Duration 11/28/23 Assessment Summary Assessment Pt improves corrections in TA draw in/neutral pelvis with tactile cuing resisted clam, squat, lateral stepping and step down with report glut med tiring. Reported decrease hip flexor and adductor tension post manual and instructed stretching with HO carryover recall/form. Pt is making gains in strength improved lateral step down use 4-6step today vs 2 last tx. Physical Therapy Plan Frequency and Duration Frequency of Treatment 1-2x/wk Duration of treatment (weeks) 12 Plan of Care Start Date 09/05/23 Plan of Care End Date 11/28/23 Therapeutic Interventions Therapeutic Interventions Balance Training,Gait Training ,Home Exercise Program,Joint Mobilizations,Manual Therapy, Neuromuscular Re-education, Orthotic/Prosthetic Management ,Patient/Caregiver Education, Self-Care/Home Management,Soft Tissue Mobilization,Taping, Therapeutic Activities, Therapeutic Exercises Modalities Cold Pack/Ice Massage,Electric Stimulation,Hot Packs, Infrared Therapy,Ultrasound Next Visit Focus/Plan Next Note Type Treatment Note Next Visit Plan Assess response to adductor stretch and increased resistance with HEP. POC: manual: hip and pelvis mobs, STM to hip and ITB and hip flexor try balance board and balance exercises review exercises as needed and advance as able
--- NOTE | 2023-10-04 08:59 | PT.OTN ---
Current Diagnoses Unilateral primary osteoarthritis, right hip (10/04/23) Difficulty in walking, not elsewhere classified (10/04/23) Abnormal posture (10/04/23) Weakness (10/04/23) Physical Therapy Treatment Note PT-OP-A Visit Information Start: 08/29/23 10:56 Freq: Status: Active Protocol: Document 10/04/23 08:16 SP (Rec: 10/04/23 09:02 SP [id number]) Out-Patient Physical Therapy Visit Information Visit Information Visit Type Treatment Note Visit Note 02/19 Visit Start Time 08:16 Visit Stop Time 08:59 Visit Number 7 Number of ASSISTANT HALL DIRECTOR Visits 2 PT-OP-B Current Condition Start: 08/29/23 10:56 Freq: Status: Active Protocol: Document 09/05/23 07:29 LR (Rec: 09/05/23 11:18 [facility] [id number]) Current Condition History of Current Condition Onset Date gradually last year spring Current Complaints R hip History of Current Condition Pt reports she is bone on bone per doctor and she is a candidate for hip replacement but started with an injection and that really helped. She feels like [facility] needs strengthening because she has avoided activity. She is hoping for some strengthening. She volunteers for the [employer] in the summer and rides or hikes to get to areas they are working. She noticed getting up/down from the horse was really hard. 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 Pt reprots when pain got excrutiating in Jun, she would have to sit down mid day. She would stop doing stairs. injection was mid dec. Pt consistantly walks about 2-3 miles a day that is pretty much flat. Had to really limit her walking or not walk prior to shot. had to sig limit activity prior to shot Treatment Goals Patient/Caregiver Goals build strength, be able to tie R shoe and don R sock, bending down to pick something off ground; be able to do stairs easier PT-OP-C Subjective Start: 08/29/23 10:56 Freq: Status: Active Protocol: Document 10/04/23 08:16 SP (Rec: 10/04/23 09:02 SP [id number]) OP-PT Subjective Patient Comments Patient Comments Pt reports adductor not as tight today. PT-OP-D Balance Start: 08/29/23 10:56 Freq: Status: Active Protocol: Document 09/05/23 07:29 [facility] (Rec: 09/05/23 11:18 [facility] [id number]) Balance Tests Single Limb Standing Single Limb- Right 2 sec Single Limb- Left 3 sec PT-OP-F Manual Assessment Start: 08/29/23 10:56 Freq: Status: Active Protocol: Document 09/05/23 07:29 [facility] (Rec: 09/05/23 11:18 [facility] [id number]) Manual Assessments Joint Mobility Assessment Joint Mobility Assessment clunking and crepetits w/ROM of R hip PT-OP-G Mobility & Gait Start: 08/29/23 10:56 Freq: Status: Active Protocol: Document 09/05/23 07:29 [facility] (Rec: 09/05/23 11:18 [facility] [id number]) OP Gait Assessment Comments Gait Comments hard landing on RLE w/lat lean on RLE PT-OP-J Posture/Palpation/Skin Start: 08/29/23 10:56 Freq: Status: Active Protocol: Document 09/05/23 07:29 [facility] (Rec: 09/05/23 11:18 [facility] [id number]) Posture Evaluation Damián Postural Classification System Lumbar Protective Mechanism Left AP 1 Lumbar Protective Mechanism Right AP 0 Lumbar Protective Mechanism Left PA 2 Lumbar Protective Mechanism Right PA 1 Comments Posture Comments sheared L w/iliac crest higher on L; equal greater trochanters PT-OP-K Range of Motion Start: 08/29/23 10:56 Freq: Status: Active Protocol: Document 09/05/23 07:29 [facility] (Rec: 09/05/23 11:18 [facility] [id number]) Hip Goniometric Range of Motion Hip Left Active Flexion w/Knee Flexed 105 Straight Leg Raise 91 Right Active Flexion w/Knee Flexed 100 Straight Leg Raise 69 Comments pain w/groin PT-OP-M Strength Start: 08/29/23 10:56 Freq: Status: Active Protocol: Document 09/05/23 07:29 [facility] (Rec: 09/05/23 11:18 [facility] [id number]) Hip Strength Hip Manual Muscle Testing Right Flexion (L2) 3+ Fair+ Extension (S1) 3+ Fair+ Abduction 3+ Fair+ Adduction 2 Poor External Rotation 3+ Fair+ Internal Rotation 5 Normal Left Flexion (L2) 3+ Fair+ Extension (S1) 3+ Fair+ Abduction 3+ Fair+ Adduction 3+ Fair+ External Rotation 4- Good- Internal Rotation 5 Normal Knee Strength Knee Manual Muscle Testing Right Flexion (S2) 4+ Good+ Extension (L3) 4- Good- Left Flexion (S2) 5 Normal Extension (L3) 4 Good Ankle/Foot Strength Ankle and Foot Manual Muscle Testing Right Dorsiflexion (L4) 4+ Good+ Left Dorsiflexion (L4) 5 Normal PT-OP-Q Treatments Start: 08/29/23 10:56 Freq: Status: Active Protocol: Document 10/04/23 08:16 SP (Rec: 10/04/23 09:02 SP [id number]) Gym Equipment Sport Cord red Exercise Details back, lateral, fwd on/off 6 step Reps/Duration 3 reps each direction Comments cued for soft eccentric land stepping, midline trunk, improved glut med con/ecc WB Therapeutic Exercises Supine Exercises adductor stretch Supine Exercise Name initiated up on arrival Side bilateral bridge Supine Exercise Name w/alt march Side bilateral Reps/Minutes 4, 5, 5 reps Comments cues for breathing & control Sidelying Exercises clamshell Side bilateral Equipment Used L2 at thighs (aqua green) Reps/Minutes 20 on L, on R Comments good stacked alignment and Sitting Exercises figure 4 Sitting Exercise Name stretch Side right Reps/Minutes 1 min Comments between glut med ex Standing Exercises glut med lift at wall Standing Exercise Name added to HEP Side bilateral Reps/Minutes 8 & 10 reps Comments Mod cues for set up and proper pacing and form lat step up Standing Exercise Name up/down Side bilateral Resistance L>R weakness Equipment Used 6 step (opp LE PF touch floor ), contact rail Reps/Minutes 10 each side Comments cued knee behind forefoot, level hip sidestep Standing Exercise Name F/B/L Side bilateral Equipment Used L2 shins>ankles Reps/Minutes 20ft ea 2 laps each direction Comments cue for pelvic tilt for neutral core, no scuff return, mini squat pos Neuro Re-Education Treatment Balance Activities hurdles Details 6 hurdles, foam, pods, obstacle course incline/ decline hill Comments 4 laps PT-OP-T Assessment and Plan Start: 08/29/23 10:56 Freq: Status: Active Protocol: Document 10/04/23 08:16 SP (Rec: 10/04/23 09:02 SP [id number]) Physical Therapy Assessment Goals balance Short Term Goal (STG) Pt will be able to do SLS B for at least 10 sec. STG Duration 10/21/23 Detention Goal (LTG) Pt will be able to do SLS B for at least 15 sec. LTG Duration 11/28/23 strength Short Term Goal (STG) Pt will be indep w/HEP STG Duration 10/12/23 Communications Billing Analyst Goal (LTG) Pt will score at least 3/5 on LPM in all planes and at least 4+/5 on all B LE MMT to show improved strength in order for pt to hav greater ease with movement. LTG Duration 11/28/23 ROM Short Term Goal (STG) Pt will have enough hip ROM to be able to don and doff shoes and socks w/o inc difficulty STG Duration 10/12/23 Communications Billing Analyst Goal (LTG) Pt will be able to pick things off the ground w/o difficulty or pain. LTG Duration 11/28/23 activities Detention Goal (LTG) Pt will be able to walk, do stairs and do all activities around her house and travelling w/o feeling of weakness or fatigue of RLE limiting her LTG Duration 11/28/23 Assessment Summary Assessment Pt good response to stretch HEP review. Mod cues and education on abd TA draw in during ther ex improved no LB discomfort and level pelvis during october and resisted clamshell. GOod Glut med tiring response to added glut med ex to HEP. Pt improved stability with added edmund trial uneven foam and pods for challenge balance recovery progress to uneven surface gait community progression. Light contact at pt elbow and mod cues for elongated posturing over stance LE to improve stabiltiy . Physical Therapy Plan Frequency and Duration Frequency of Treatment 1-2x/wk Duration of treatment (weeks) 12 Plan of Care Start Date 09/05/23 Plan of Care End Date 11/28/23 Therapeutic Interventions Therapeutic Interventions Balance Training,Gait Training ,Home Exercise Program,Joint Mobilizations,Manual Therapy, Neuromuscular Re-education, Orthotic/Prosthetic Management ,Patient/Caregiver Education, Self-Care/Home Management,Soft Tissue Mobilization,Taping, Therapeutic Activities, Therapeutic Exercises Modalities Cold Pack/Ice Massage,Electric Stimulation,Hot Packs, Infrared Therapy,Ultrasound Next Visit Focus/Plan Next Note Type Treatment Note Next Visit Plan Assess response to adductor stretch and increased resistance with HEP. reivew glut med at wall and Continue hurdles steppping. POC: manual: hip and pelvis mobs, STM to hip and ITB and hip flexor try balance board and balance exercises review exercises as needed and advance as able
--- NOTE | 2023-10-08 15:29 | PT.OTN ---
Current Diagnoses Unilateral primary osteoarthritis, right hip (10/08/23) Difficulty in walking, not elsewhere classified (10/08/23) Abnormal posture (10/08/23) Weakness (10/08/23) Physical Therapy Treatment Note PT-OP-A Visit Information Start: 08/29/23 10:56 Freq: Status: Active Protocol: Document 10/08/23 14:36 [facility] (Rec: 10/08/23 15:29 [facility] [id number]) Out-Patient Physical Therapy Visit Information Visit Information Visit Type Treatment Note Visit Note 03/22 Visit Start Time 14:34 Visit Stop Time 15:14 Visit Number 8 Number of SELLING SPECIALIST Visits 0 PT-OP-B Current Condition Start: 08/29/23 10:56 Freq: Status: Active Protocol: Document 09/05/23 07:29 [facility] (Rec: 09/05/23 11:18 [facility] [id number]) Current Condition History of Current Condition Onset Date gradually last year spring Current Complaints R hip History of Current Condition Pt reports she is bone on bone per doctor and she is a candidate for hip replacement but started with an injection and that really helped. She feels like [facility] needs strengthening because she has avoided activity. She is hoping for some strengthening. She volunteers for the [employer] in the summer and rides or hikes to get to areas they are working. She noticed getting up/down from the horse was really hard. 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 Pt reprots when pain got excrutiating in Jun, she would have to sit down mid day. She would stop doing stairs. injection was mid dec. Pt consistantly walks about 2-3 miles a day that is pretty much flat. Had to really limit her walking or not walk prior to shot. had to sig limit activity prior to shot Treatment Goals Patient/Caregiver Goals build strength, be able to tie R shoe and don R sock, bending down to pick something off ground; be able to do stairs easier PT-OP-C Subjective Start: 08/29/23 10:56 Freq: Status: Active Protocol: Document 10/08/23 14:36 [facility] (Rec: 10/08/23 15:29 [facility] [id number]) OP-PT Subjective Patient Comments Patient Comments Pt reports stiff after working today PT-OP-D Balance Start: 08/29/23 10:56 Freq: Status: Active Protocol: Document 09/05/23 07:29 [facility] (Rec: 09/05/23 11:18 [facility] [id number]) Balance Tests Single Limb Standing Single Limb- Right 2 sec Single Limb- Left 3 sec PT-OP-F Manual Assessment Start: 08/29/23 10:56 Freq: Status: Active Protocol: Document 09/05/23 07:29 [facility] (Rec: 09/05/23 11:18 [facility] [id number]) Manual Assessments Joint Mobility Assessment Joint Mobility Assessment clunking and crepetits w/ROM of R hip PT-OP-G Mobility & Gait Start: 08/29/23 10:56 Freq: Status: Active Protocol: Document 09/05/23 07:29 [facility] (Rec: 09/05/23 11:18 [facility] [id number]) OP Gait Assessment Comments Gait Comments hard landing on RLE w/lat lean on RLE PT-OP-J Posture/Palpation/Skin Start: 08/29/23 10:56 Freq: Status: Active Protocol: Document 09/05/23 07:29 [facility] (Rec: 09/05/23 11:18 [facility] [id number]) Posture Evaluation Damián Postural Classification System Lumbar Protective Mechanism Left AP 1 Lumbar Protective Mechanism Right AP 0 Lumbar Protective Mechanism Left PA 2 Lumbar Protective Mechanism Right PA 1 Comments Posture Comments sheared L w/iliac crest higher on L; equal greater trochanters PT-OP-K Range of Motion Start: 08/29/23 10:56 Freq: Status: Active Protocol: Document 09/05/23 07:29 [facility] (Rec: 09/05/23 11:18 [facility] [id number]) Hip Goniometric Range of Motion Hip Left Active Flexion w/Knee Flexed 105 Straight Leg Raise 91 Right Active Flexion w/Knee Flexed 100 Straight Leg Raise 69 Comments pain w/groin PT-OP-M Strength Start: 08/29/23 10:56 Freq: Status: Active Protocol: Document 09/05/23 07:29 [facility] (Rec: 09/05/23 11:18 [facility] [id number]) Hip Strength Hip Manual Muscle Testing Right Flexion (L2) 3+ Fair+ Extension (S1) 3+ Fair+ Abduction 3+ Fair+ Adduction 2 Poor External Rotation 3+ Fair+ Internal Rotation 5 Normal Left Flexion (L2) 3+ Fair+ Extension (S1) 3+ Fair+ Abduction 3+ Fair+ Adduction 3+ Fair+ External Rotation 4- Good- Internal Rotation 5 Normal Knee Strength Knee Manual Muscle Testing Right Flexion (S2) 4+ Good+ Extension (L3) 4- Good- Left Flexion (S2) 5 Normal Extension (L3) 4 Good Ankle/Foot Strength Ankle and Foot Manual Muscle Testing Right Dorsiflexion (L4) 4+ Good+ Left Dorsiflexion (L4) 5 Normal PT-OP-Q Treatments Start: 08/29/23 10:56 Freq: Status: Active Protocol: Document 10/08/23 14:36 [facility] (Rec: 10/08/23 15:29 [facility] [id number]) Manual Therapy Treatment Soft Tissue Mobilization add Body Location R R add longus and greg Mobilization Type Rolling Intensity/Depth Moderate Body Position Supine Comments w/AAROM hipabd Joint Mobilizations sacrum Joint caudal L and UPA R FM innominate Comments caudal L; B ER FM, abd R FM hip Comments R abd FM Self-Care/Home Management Treatment Education Other Education 8 min: use of mirror for pt to find midline and PT faciliating dec pelvic shear and even LE WB. Able to achieved after manual. Pt requires a lot of cues. reviewed verbally w/donatoo opitosn of add stretch, (stand , supine w/strap, 1/2 kneel PT-OP-T Assessment and Plan Start: 08/29/23 10:56 Freq: Status: Active Protocol: Document 10/08/23 14:36 [facility] (Rec: 10/08/23 15:29 [facility] [id number]) Physical Therapy Assessment Goals balance Short Term Goal (STG) Pt will be able to do SLS B for at least 10 sec. STG Duration 10/21/23 Retirement Goal (LTG) Pt will be able to do SLS B for at least 15 sec. LTG Duration 11/28/23 strength Short Term Goal (STG) Pt will be indep w/HEP STG Duration 10/12/23 Medical Staff Assistant Goal (LTG) Pt will score at least 3/5 on LPM in all planes and at least 4+/5 on all B LE MMT to show improved strength in order for pt to hav greater ease with movement. LTG Duration 11/28/23 ROM Short Term Goal (STG) Pt will have enough hip ROM to be able to don and doff shoes and socks w/o inc difficulty STG Duration 10/12/23 Medical Staff Assistant Goal (LTG) Pt will be able to pick things off the ground w/o difficulty or pain. LTG Duration 11/28/23 activities Medical Staff Assistant Goal (LTG) Pt will be able to walk, do stairs and do all activities around her house and travelling w/o feeling of weakness or fatigue of RLE limiting her LTG Duration 11/28/23 Assessment Summary Assessment Pt had improved posture w/ manual treatmetn and imrpoved R hip mobility. Pt requries edu on positioning in standing for posture and use of mirror to help find neutral. Physical Therapy Plan Frequency and Duration Frequency of Treatment 1-2x/wk Duration of treatment (weeks) 12 Plan of Care Start Date 09/05/23 Plan of Care End Date 11/28/23 Next Visit Focus/Plan Next Note Type Progress Note Next Visit Plan check progress and adjust HEP as needed, cont to work on posture
--- NOTE | 2023-10-15 17:36 | PT.OTN ---
Current Diagnoses Unilateral primary osteoarthritis, right hip (10/15/23) Difficulty in walking, not elsewhere classified (10/15/23) Abnormal posture (10/15/23) Weakness (10/15/23) Physical Therapy Treatment Note PT-OP-A Visit Information Start: 08/29/23 10:56 Freq: Status: Active Protocol: Document 10/15/23 16:27 [facility] (Rec: 10/15/23 17:36 [facility] [id number]) Out-Patient Physical Therapy Visit Information Visit Information Visit Type Progress Note Visit Note 08/22 Visit Start Time 16:43 Visit Stop Time 17:28 Visit Number 9 Number of LABORATORY SECRETARY Visits 0 PT-OP-B Current Condition Start: 08/29/23 10:56 Freq: Status: Active Protocol: Document 09/05/23 07:29 [facility] (Rec: 09/05/23 11:18 [facility] [id number]) Current Condition History of Current Condition Onset Date gradually last year spring Current Complaints R hip History of Current Condition Pt reports she is bone on bone per doctor and she is a candidate for hip replacement but started with an injection and that really helped. She feels like [facility] needs strengthening because she has avoided activity. She is hoping for some strengthening. She volunteers for the [employer] in the summer and rides or hikes to get to areas they are working. She noticed getting up/down from the horse was really hard. 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 Pt reprots when pain got excrutiating in Jun, she would have to sit down mid day. She would stop doing stairs. injection was mid dec. Pt consistantly walks about 2-3 miles a day that is pretty much flat. Had to really limit her walking or not walk prior to shot. had to sig limit activity prior to shot Treatment Goals Patient/Caregiver Goals build strength, be able to tie R shoe and don R sock, bending down to pick something off ground; be able to do stairs easier PT-OP-C Subjective Start: 08/29/23 10:56 Freq: Status: Active Protocol: Document 10/15/23 16:27 [facility] (Rec: 10/15/23 17:36 [facility] [id number]) OP-PT Subjective Patient Comments Patient Comments Pt reports she sees Dr. cheng 3 /14 . feels like shot is wearing off but does feel stronger. Stairs are easier PT-OP-D Balance Start: 08/29/23 10:56 Freq: Status: Active Protocol: Document 10/15/23 16:27 [facility] (Rec: 10/15/23 17:36 [facility] [id number]) Balance Tests Single Limb Standing Single Limb- Right 5 sec Single Limb- Left 14sec PT-OP-F Manual Assessment Start: 08/29/23 10:56 Freq: Status: Active Protocol: Document 09/05/23 07:29 [facility] (Rec: 09/05/23 11:18 [facility] [id number]) Manual Assessments Joint Mobility Assessment Joint Mobility Assessment clunking and crepetits w/ROM of R hip PT-OP-G Mobility & Gait Start: 08/29/23 10:56 Freq: Status: Active Protocol: Document 09/05/23 07:29 [facility] (Rec: 09/05/23 11:18 [facility] [id number]) OP Gait Assessment Comments Gait Comments hard landing on RLE w/lat lean on RLE PT-OP-J Posture/Palpation/Skin Start: 08/29/23 10:56 Freq: Status: Active Protocol: Document 10/15/23 16:27 [facility] (Rec: 10/15/23 17:36 [facility] [id number]) Posture Evaluation Damián Postural Classification System Lumbar Protective Mechanism Left AP 2 Lumbar Protective Mechanism Right AP 2 Lumbar Protective Mechanism Left PA 2 Lumbar Protective Mechanism Right PA 2 PT-OP-K Range of Motion Start: 08/29/23 10:56 Freq: Status: Active Protocol: Document 09/05/23 07:29 [facility] (Rec: 09/05/23 11:18 [facility] [id number]) Hip Goniometric Range of Motion Hip Left Active Flexion w/Knee Flexed 105 Straight Leg Raise 91 Right Active Flexion w/Knee Flexed 100 Straight Leg Raise 69 Comments pain w/groin PT-OP-M Strength Start: 08/29/23 10:56 Freq: Status: Active Protocol: Document 10/15/23 16:27 [facility] (Rec: 10/15/23 17:36 [facility] [id number]) Hip Strength Hip Manual Muscle Testing Right Flexion (L2) 4 Good Extension (S1) 3+ Fair+ Abduction 3+ Fair+ Adduction 4- Good- External Rotation 4- Good- Internal Rotation 5 Normal Left Flexion (L2) 4 Good Extension (S1) 3+ Fair+ Abduction 4- Good- Adduction 4 Good External Rotation 4 Good Internal Rotation 5 Normal Knee Strength Knee Manual Muscle Testing Right Flexion (S2) 5 Normal Extension (L3) 5 Normal Left Flexion (S2) 5 Normal Extension (L3) 5 Normal Ankle/Foot Strength Ankle and Foot Manual Muscle Testing Right Dorsiflexion (L4) 5 Normal Left Dorsiflexion (L4) 5 Normal PT-OP-Q Treatments Start: 08/29/23 10:56 Freq: Status: Active Protocol: Document 10/15/23 16:27 [facility] (Rec: 10/15/23 17:36 [facility] [id number]) Therapeutic Exercises Prone Exercises hip ext Prone Exercise Name alt Side bilateral Equipment Used pillow under abdomen Reps/Minutes 10 Standing Exercises wt shift Standing Exercise Name L to R to find neutral on R Side bilateral Reps/Minutes 12 Other Exercises isometrics Other Exercise Name MMT BLE and LPM B Manual Therapy Treatment Soft Tissue Mobilization hip flexor Body Location R iliacus and psoas orgin and insertion Mobilization Type Sustained Pressure Intensity/Depth Moderate Comments w/AAROM flex and heel slies lat Body Location R Mobilization Type Rolling Intensity/Depth Moderate Body Position Hooklying Comments ITB, lat glutes, HS add Body Location R R add longus and greg Mobilization Type Rolling Intensity/Depth Moderate Body Position Sidelying Comments w/AAROM hipabd Joint Mobilizations hip Comments R abd FM PT-OP-T Assessment and Plan Start: 08/29/23 10:56 Freq: Status: Active Protocol: Document 10/15/23 16:27 [facility] (Rec: 10/15/23 17:36 [facility] [id number]) Physical Therapy Assessment Goals balance Short Term Goal (STG) Pt will be able to do SLS B for at least 10 sec. 3/4-5 sec r;14 L STG Duration 10/21/23 Cardiovascular Lab Director Goal (LTG) Pt will be able to do SLS B for at least 15 sec. LTG Duration 11/28/23 strength Short Term Goal (STG) Pt will be indep w/HEP STG Duration achieved advancing as able Senior Care Goal (LTG) Pt will score at least 3/5 on LPM in all planes and at least 4+/5 on all B LE MMT to show improved strength in order for pt to hav greater ease with movement. 3/4-improved LTG Duration 11/28/23 ROM Short Term Goal (STG) Pt will have enough hip ROM to be able to don and doff shoes and socks w/o inc difficulty 3/4-a little easier STG Duration 10/12/23 Cardiovascular Lab Director Goal (LTG) Pt will be able to pick things off the ground w/o difficulty or pain. 3/4-feels stiff in back but no pain LTG Duration 11/28/23 activities Cardiovascular Lab Director Goal (LTG) Pt will be able to walk, do stairs and do all activities around her house and travelling w/o feeling of weakness or fatigue of RLE limiting her 3/4- stairs are easier; not as fast as used to be still but walking more pleasurable d/t no giving out of hip; has gone on some trails LTG Duration 11/28/23 Assessment Summary Assessment Pt has made significant progress w/hip ROM and strength since starting PT along w/reported improved functional ability and dec fatigue w/activity w/hip. She is noting some pain starting again recently in the hip and will follow up w/ortho next week re: this as she is concerned for [facility] trip. She would benefit frm cont skilled PT To address cont hip weakness and stiffness to improve funciton Physical Therapy Plan Frequency and Duration Frequency of Treatment 1-2x/wk Duration of treatment (weeks) 12 Plan of Care Start Date 09/05/23 Plan of Care End Date 11/28/23 Therapeutic Interventions Therapeutic Interventions Balance Training,Gait Training ,Home Exercise Program,Joint Mobilizations,Manual Therapy, Neuromuscular Re-education, Orthotic/Prosthetic Management ,Patient/Caregiver Education, Self-Care/Home Management,Soft Tissue Mobilization,Taping, Therapeutic Activities, Therapeutic Exercises Modalities Cold Pack/Ice Massage,Electric Stimulation,Hot Packs, Infrared Therapy,Ultrasound Next Visit Focus/Plan Next Note Type Treatment Note Next Visit Plan advance HEP as needed, cont to work on posture and strength w/glute focus
--- NOTE | 2023-10-22 10:43 | PT-OP ANOTE ---
Called pt and VM full but sent text re: cancellation d/t hip pain to discuss pt coming in for managing the pain today vs heavy exercise and check on pt re: this hip pain.
--- NOTE | 2023-10-22 18:16 | PT.OTN ---
Current Diagnoses Unilateral primary osteoarthritis, right hip (10/22/23) Difficulty in walking, not elsewhere classified (10/22/23) Abnormal posture (10/22/23) Weakness (10/22/23) Physical Therapy Treatment Note PT-OP-A Visit Information Start: 08/29/23 10:56 Freq: Status: Active Protocol: Document 10/22/23 18:13 [facility] (Rec: 10/22/23 18:15 [facility] [id number]) Out-Patient Physical Therapy Visit Information Visit Information Visit Type Treatment Note Visit Note 09/22 Visit Start Time 16:49 Visit Stop Time 17:31 Visit Number 10 Number of ORACLE BPM CONSULTANT Visits 0 PT-OP-B Current Condition Start: 08/29/23 10:56 Freq: Status: Active Protocol: Document 09/05/23 07:29 [facility] (Rec: 09/05/23 11:18 [facility] [id number]) Current Condition History of Current Condition Onset Date gradually last year spring Current Complaints R hip History of Current Condition Pt reports she is bone on bone per doctor and she is a candidate for hip replacement but started with an injection and that really helped. She feels like [facility] needs strengthening because she has avoided activity. She is hoping for some strengthening. She volunteers for the [employer] in the summer and rides or hikes to get to areas they are working. She noticed getting up/down from the horse was really hard. 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 Pt reprots when pain got excrutiating in Jun, she would have to sit down mid day. She would stop doing stairs. injection was mid dec. Pt consistantly walks about 2-3 miles a day that is pretty much flat. Had to really limit her walking or not walk prior to shot. had to sig limit activity prior to shot Treatment Goals Patient/Caregiver Goals build strength, be able to tie R shoe and don R sock, bending down to pick something off ground; be able to do stairs easier PT-OP-C Subjective Start: 08/29/23 10:56 Freq: Status: Active Protocol: Document 10/22/23 18:13 [facility] (Rec: 10/22/23 18:15 [facility] [id number]) OP-PT Subjective Patient Comments Patient Comments Pt reports she did a lot of yard work this weekend and still did some hip strength exercises along w/a long work week last week, and hip was really sore and sore to lay on PT-OP-D Balance Start: 08/29/23 10:56 Freq: Status: Active Protocol: Document 10/15/23 16:27 [facility] (Rec: 10/15/23 17:36 [facility] [id number]) Balance Tests Single Limb Standing Single Limb- Right 5 sec Single Limb- Left 14sec PT-OP-F Manual Assessment Start: 08/29/23 10:56 Freq: Status: Active Protocol: Document 09/05/23 07:29 [facility] (Rec: 09/05/23 11:18 [facility] [id number]) Manual Assessments Joint Mobility Assessment Joint Mobility Assessment clunking and crepetits w/ROM of R hip PT-OP-G Mobility & Gait Start: 08/29/23 10:56 Freq: Status: Active Protocol: Document 09/05/23 07:29 [facility] (Rec: 09/05/23 11:18 [facility] [id number]) OP Gait Assessment Comments Gait Comments hard landing on RLE w/lat lean on RLE PT-OP-J Posture/Palpation/Skin Start: 08/29/23 10:56 Freq: Status: Active Protocol: Document 10/15/23 16:27 [facility] (Rec: 10/15/23 17:36 [facility] [id number]) Posture Evaluation [facility] Postural Classification System Lumbar Protective Mechanism Left AP 2 Lumbar Protective Mechanism Right AP 2 Lumbar Protective Mechanism Left PA 2 Lumbar Protective Mechanism Right PA 2 PT-OP-K Range of Motion Start: 08/29/23 10:56 Freq: Status: Active Protocol: Document 09/05/23 07:29 [facility] (Rec: 09/05/23 11:18 [facility] [id number]) Hip Goniometric Range of Motion Hip Left Active Flexion w/Knee Flexed 105 Straight Leg Raise 91 Right Active Flexion w/Knee Flexed 100 Straight Leg Raise 69 Comments pain w/groin PT-OP-M Strength Start: 08/29/23 10:56 Freq: Status: Active Protocol: Document 10/15/23 16:27 [facility] (Rec: 10/15/23 17:36 [facility] [id number]) Hip Strength Hip Manual Muscle Testing Right Flexion (L2) 4 Good Extension (S1) 3+ Fair+ Abduction 3+ Fair+ Adduction 4- Good- External Rotation 4- Good- Internal Rotation 5 Normal Left Flexion (L2) 4 Good Extension (S1) 3+ Fair+ Abduction 4- Good- Adduction 4 Good External Rotation 4 Good Internal Rotation 5 Normal Knee Strength Knee Manual Muscle Testing Right Flexion (S2) 5 Normal Extension (L3) 5 Normal Left Flexion (S2) 5 Normal Extension (L3) 5 Normal Ankle/Foot Strength Ankle and Foot Manual Muscle Testing Right Dorsiflexion (L4) 5 Normal Left Dorsiflexion (L4) 5 Normal PT-OP-Q Treatments Start: 08/29/23 10:56 Freq: Status: Active Protocol: Document 10/22/23 18:13 [facility] (Rec: 10/22/23 18:15 [facility] [id number]) Manual Therapy Treatment Soft Tissue Mobilization post Body Location R glutes, piriformis Mobilization Type Sustained Pressure Intensity/Depth Moderate Body Position Sidelying hip flexor Body Location R iliacus and psoas orgin and insertion Mobilization Type Sustained Pressure Intensity/Depth Moderate Comments w/AAROM flex and heel slies lat Body Location R Mobilization Type Rolling Intensity/Depth Moderate Body Position Hooklying Comments ITB, lat glutes, HS add Body Location R R add longus and greg Mobilization Type Rolling Intensity/Depth Moderate Body Position Sidelying Comments w/AAROM hipabd Joint Mobilizations sacrum Joint R caudal FM hip Comments R distraction & Inf FM PT-OP-T Assessment and Plan Start: 08/29/23 10:56 Freq: Status: Active Protocol: Document 10/22/23 18:13 [facility] (Rec: 10/22/23 18:15 [facility] [id number]) Physical Therapy Assessment Goals balance Short Term Goal (STG) Pt will be able to do SLS B for at least 10 sec. 3/4-5 sec r;14 L STG Duration 10/21/23 Radio Despatcher Goal (LTG) Pt will be able to do SLS B for at least 15 sec. LTG Duration 11/28/23 strength Short Term Goal (STG) Pt will be indep w/HEP STG Duration achieved advancing as able Radio Despatcher Goal (LTG) Pt will score at least 3/5 on LPM in all planes and at least 4+/5 on all B LE MMT to show improved strength in order for pt to hav greater ease with movement. 3/4-improved LTG Duration 11/28/23 ROM Short Term Goal (STG) Pt will have enough hip ROM to be able to don and doff shoes and socks w/o inc difficulty 3/4-a little easier STG Duration 10/12/23 Radio Despatcher Goal (LTG) Pt will be able to pick things off the ground w/o difficulty or pain. 3/4-feels stiff in back but no pain LTG Duration 11/28/23 activities Jail Goal (LTG) Pt will be able to walk, do stairs and do all activities around her house and travelling w/o feeling of weakness or fatigue of RLE limiting her 3/4- stairs are easier; not as fast as used to be still but walking more pleasurable d/t no giving out of hip; has gone on some trails LTG Duration 11/28/23 Assessment Summary Assessment Focus was on dec pt pain and improving mobility again w/ much improved ER and flex after manual w/pt feeling less restricted and painful after. She was encouraged to take a couple days off strength and just focus on gentle stretching Physical Therapy Plan Frequency and Duration Frequency of Treatment 1-2x/wk Duration of treatment (weeks) 12 Plan of Care Start Date 09/05/23 Plan of Care End Date 11/28/23 Next Visit Focus/Plan Next Note Type Treatment Note Next Visit Plan advance HEP as needed, cont to work on posture and strength w/glute focus
--- NOTE | 2023-10-30 09:20 | PT.OTN ---
Current Diagnoses Unilateral primary osteoarthritis, right hip (10/30/23) Difficulty in walking, not elsewhere classified (10/30/23) Abnormal posture (10/30/23) Weakness (10/30/23) Physical Therapy Treatment Note PT-OP-A Visit Information Start: 08/29/23 10:56 Freq: Status: Active Protocol: Document 10/30/23 08:19 [facility] (Rec: 10/30/23 09:20 [facility] [id number]) Out-Patient Physical Therapy Visit Information Visit Information Visit Type Treatment Note Visit Note 10/20 Visit Start Time 08:21 Visit Stop Time 09:00 Visit Number 11 Number of WATER TREATMENT OPERATOR Visits 0 PT-OP-B Current Condition Start: 08/29/23 10:56 Freq: Status: Active Protocol: Document 09/05/23 07:29 [facility] (Rec: 09/05/23 11:18 [facility] [id number]) Current Condition History of Current Condition Onset Date gradually last year spring Current Complaints R hip History of Current Condition Pt reports she is bone on bone per doctor and she is a candidate for hip replacement but started with an injection and that really helped. She feels like [facility] needs strengthening because she has avoided activity. She is hoping for some strengthening. She volunteers for the [employer] in the summer and rides or hikes to get to areas they are working. She noticed getting up/down from the horse was really hard. 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 Pt reprots when pain got excrutiating in Jun, she would have to sit down mid day. She would stop doing stairs. injection was mid dec. Pt consistantly walks about 2-3 miles a day that is pretty much flat. Had to really limit her walking or not walk prior to shot. had to sig limit activity prior to shot Treatment Goals Patient/Caregiver Goals build strength, be able to tie R shoe and don R sock, bending down to pick something off ground; be able to do stairs easier PT-OP-C Subjective Start: 08/29/23 10:56 Freq: Status: Active Protocol: Document 10/30/23 08:19 [facility] (Rec: 10/30/23 09:20 [facility] [id number]) OP-PT Subjective Patient Comments Patient Comments Pt got another shot for hip on . Has been instructed to go light on the exercise for a week. PT-OP-D Balance Start: 08/29/23 10:56 Freq: Status: Active Protocol: Document 10/15/23 16:27 [facility] (Rec: 10/15/23 17:36 [facility] [id number]) Balance Tests Single Limb Standing Single Limb- Right 5 sec Single Limb- Left 14sec PT-OP-F Manual Assessment Start: 08/29/23 10:56 Freq: Status: Active Protocol: Document 09/05/23 07:29 [facility] (Rec: 09/05/23 11:18 [facility] [id number]) Manual Assessments Joint Mobility Assessment Joint Mobility Assessment clunking and crepetits w/ROM of R hip PT-OP-G Mobility & Gait Start: 08/29/23 10:56 Freq: Status: Active Protocol: Document 09/05/23 07:29 [facility] (Rec: 09/05/23 11:18 [facility] [id number]) OP Gait Assessment Comments Gait Comments hard landing on RLE w/lat lean on RLE PT-OP-J Posture/Palpation/Skin Start: 08/29/23 10:56 Freq: Status: Active Protocol: Document 10/15/23 16:27 [facility] (Rec: 10/15/23 17:36 [facility] [id number]) Posture Evaluation [facility] Postural Classification System Lumbar Protective Mechanism Left AP 2 Lumbar Protective Mechanism Right AP 2 Lumbar Protective Mechanism Left PA 2 Lumbar Protective Mechanism Right PA 2 PT-OP-K Range of Motion Start: 08/29/23 10:56 Freq: Status: Active Protocol: Document 09/05/23 07:29 [facility] (Rec: 09/05/23 11:18 [facility] [id number]) Hip Goniometric Range of Motion Hip Left Active Flexion w/Knee Flexed 105 Straight Leg Raise 91 Right Active Flexion w/Knee Flexed 100 Straight Leg Raise 69 Comments pain w/groin PT-OP-M Strength Start: 08/29/23 10:56 Freq: Status: Active Protocol: Document 10/15/23 16:27 [facility] (Rec: 10/15/23 17:36 [facility] [id number]) Hip Strength Hip Manual Muscle Testing Right Flexion (L2) 4 Good Extension (S1) 3+ Fair+ Abduction 3+ Fair+ Adduction 4- Good- External Rotation 4- Good- Internal Rotation 5 Normal Left Flexion (L2) 4 Good Extension (S1) 3+ Fair+ Abduction 4- Good- Adduction 4 Good External Rotation 4 Good Internal Rotation 5 Normal Knee Strength Knee Manual Muscle Testing Right Flexion (S2) 5 Normal Extension (L3) 5 Normal Left Flexion (S2) 5 Normal Extension (L3) 5 Normal Ankle/Foot Strength Ankle and Foot Manual Muscle Testing Right Dorsiflexion (L4) 5 Normal Left Dorsiflexion (L4) 5 Normal PT-OP-Q Treatments Start: 08/29/23 10:56 Freq: Status: Active Protocol: Document 10/30/23 08:19 [facility] (Rec: 10/30/23 09:20 [facility] [id number]) Therapeutic Exercises Supine Exercises stretches Supine Exercise Name 1. piriformis 2. figure 4 Side bilateral Reps/Minutes 30 sec Standing Exercises stretch Standing Exercise Name 1. hip flexor 2.bottoms up Side bilateral Reps/Minutes 1. 30 sec 2. 10 sec x10 adductor stretch Standing Exercise Name review to HEP Side bilateral Reps/Minutes 30 Comments counter for support quad stretch Standing Exercise Name HEP reviewed Side bilateral Equipment Used chair w/counter Reps/Minutes 30 sec ea Manual Therapy Treatment Soft Tissue Mobilization post Body Location R HS Mobilization Type Rolling,Sustained Pressure Intensity/Depth Moderate Comments w/active assisted flex lat Body Location R Mobilization Type Rolling Intensity/Depth Moderate Body Position Hooklying Comments ITB, lat glutes add Body Location R R add longus and greg Mobilization Type Rolling Intensity/Depth Moderate Body Position Supine Comments w/AAROM hipabd PT-OP-T Assessment and Plan Start: 08/29/23 10:56 Freq: Status: Active Protocol: Document 10/30/23 08:19 [facility] (Rec: 10/30/23 09:20 [facility] [id number]) Physical Therapy Assessment Goals balance Short Term Goal (STG) Pt will be able to do SLS B for at least 10 sec. 3/4-5 sec r;14 L STG Duration 10/21/23 Fpc Goal (LTG) Pt will be able to do SLS B for at least 15 sec. LTG Duration 11/28/23 strength Short Term Goal (STG) Pt will be indep w/HEP STG Duration achieved advancing as able Fpc Goal (LTG) Pt will score at least 3/5 on LPM in all planes and at least 4+/5 on all B LE MMT to show improved strength in order for pt to hav greater ease with movement. 3/4-improved LTG Duration 11/28/23 ROM Short Term Goal (STG) Pt will have enough hip ROM to be able to don and doff shoes and socks w/o inc difficulty 3/4-a little easier STG Duration 10/12/23 Regional Operations Manager Goal (LTG) Pt will be able to pick things off the ground w/o difficulty or pain. 3/4-feels stiff in back but no pain LTG Duration 11/28/23 activities Fpc Goal (LTG) Pt will be able to walk, do stairs and do all activities around her house and travelling w/o feeling of weakness or fatigue of RLE limiting her 3/4- stairs are easier; not as fast as used to be still but walking more pleasurable d/t no giving out of hip; has gone on some trails LTG Duration 11/28/23 Assessment Summary Assessment Edu for stretches only for the next couple weeks (pt travelling next wk) and to go lightly. She did well with gentle manualand avoided ant hip directly d/t recent injection but focus on femoral tissues. Physical Therapy Plan Frequency and Duration Frequency of Treatment 1-2x/wk Duration of treatment (weeks) 12 Plan of Care Start Date 09/05/23 Plan of Care End Date 11/28/23 Next Visit Focus/Plan Next Note Type Treatment Note Next Visit Plan advance HEP as needed, cont to work on posture and strength w/glute focus
--- NOTE | 2023-11-13 09:01 | PT.OTN ---
Current Diagnoses Unilateral primary osteoarthritis, right hip (11/13/23) Difficulty in walking, not elsewhere classified (11/13/23) Abnormal posture (11/13/23) Weakness (11/13/23) Physical Therapy Treatment Note PT-OP-A Visit Information Start: 08/29/23 10:56 Freq: Status: Active Protocol: Document 11/13/23 08:16 [facility] (Rec: 11/13/23 09:00 [facility] [id number]) Out-Patient Physical Therapy Visit Information Visit Information Visit Type Treatment Note Visit Note 11/20 Visit Start Time 08:18 Visit Stop Time 08:58 Visit Number 12 Number of IT QUALITY ANALYST Visits 0 PT-OP-B Current Condition Start: 08/29/23 10:56 Freq: Status: Active Protocol: Document 09/05/23 07:29 [facility] (Rec: 09/05/23 11:18 [facility] [id number]) Current Condition History of Current Condition Onset Date gradually last year spring Current Complaints R hip History of Current Condition Pt reports she is bone on bone per doctor and she is a candidate for hip replacement but started with an injection and that really helped. She feels like [facility] needs strengthening because she has avoided activity. She is hoping for some strengthening. She volunteers for the [employer] in the summer and rides or hikes to get to areas they are working. She noticed getting up/down from the horse was really hard. 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 Pt reprots when pain got excrutiating in Jun, she would have to sit down mid day. She would stop doing stairs. injection was mid dec. Pt consistantly walks about 2-3 miles a day that is pretty much flat. Had to really limit her walking or not walk prior to shot. had to sig limit activity prior to shot Treatment Goals Patient/Caregiver Goals build strength, be able to tie R shoe and don R sock, bending down to pick something off ground; be able to do stairs easier PT-OP-C Subjective Start: 08/29/23 10:56 Freq: Status: Active Protocol: Document 11/13/23 08:16 [facility] (Rec: 11/13/23 09:00 [facility] [id number]) OP-PT Subjective Patient Comments Patient Comments Pt reports her hip is still not as painfree as it was after first injection. [place] a lot of [place] . THere were a lot of stairs PT-OP-D Balance Start: 08/29/23 10:56 Freq: Status: Active Protocol: Document 10/15/23 16:27 [facility] (Rec: 10/15/23 17:36 [facility] [id number]) Balance Tests Single Limb Standing Single Limb- Right 5 sec Single Limb- Left 14sec PT-OP-F Manual Assessment Start: 08/29/23 10:56 Freq: Status: Active Protocol: Document 09/05/23 07:29 [facility] (Rec: 09/05/23 11:18 [facility] [id number]) Manual Assessments Joint Mobility Assessment Joint Mobility Assessment clunking and crepetits w/ROM of R hip PT-OP-G Mobility & Gait Start: 08/29/23 10:56 Freq: Status: Active Protocol: Document 09/05/23 07:29 [facility] (Rec: 09/05/23 11:18 [facility] [id number]) OP Gait Assessment Comments Gait Comments hard landing on RLE w/lat lean on RLE PT-OP-J Posture/Palpation/Skin Start: 08/29/23 10:56 Freq: Status: Active Protocol: Document 10/15/23 16:27 [facility] (Rec: 10/15/23 17:36 [facility] [id number]) Posture Evaluation [facility] Postural Classification System Lumbar Protective Mechanism Left AP 2 Lumbar Protective Mechanism Right AP 2 Lumbar Protective Mechanism Left PA 2 Lumbar Protective Mechanism Right PA 2 PT-OP-K Range of Motion Start: 08/29/23 10:56 Freq: Status: Active Protocol: Document 09/05/23 07:29 [facility] (Rec: 09/05/23 11:18 [facility] [id number]) Hip Goniometric Range of Motion Hip Left Active Flexion w/Knee Flexed 105 Straight Leg Raise 91 Right Active Flexion w/Knee Flexed 100 Straight Leg Raise 69 Comments pain w/groin PT-OP-M Strength Start: 08/29/23 10:56 Freq: Status: Active Protocol: Document 10/15/23 16:27 [facility] (Rec: 10/15/23 17:36 [facility] [id number]) Hip Strength Hip Manual Muscle Testing Right Flexion (L2) 4 Good Extension (S1) 3+ Fair+ Abduction 3+ Fair+ Adduction 4- Good- External Rotation 4- Good- Internal Rotation 5 Normal Left Flexion (L2) 4 Good Extension (S1) 3+ Fair+ Abduction 4- Good- Adduction 4 Good External Rotation 4 Good Internal Rotation 5 Normal Knee Strength Knee Manual Muscle Testing Right Flexion (S2) 5 Normal Extension (L3) 5 Normal Left Flexion (S2) 5 Normal Extension (L3) 5 Normal Ankle/Foot Strength Ankle and Foot Manual Muscle Testing Right Dorsiflexion (L4) 5 Normal Left Dorsiflexion (L4) 5 Normal PT-OP-Q Treatments Start: 08/29/23 10:56 Freq: Status: Active Protocol: Document 11/13/23 08:16 [facility] (Rec: 11/13/23 09:00 [facility] [id number]) Therapeutic Exercises Standing Exercises march Side bilateral Equipment Used L1 Reps/Minutes 10 ea Comments 5 w/L2 but too much resistance ext Standing Exercise Name at hip hinge position w/ forearms on counter Side bilateral Equipment Used L2 Reps/Minutes 10 RDL Standing Exercise Name 1. DL 2.SL w/rail prn Side bilateral Reps/Minutes 12 ea sidestep Side bilateral Equipment Used L2 ankles Reps/Minutes 20ft ea Comments cues core and control squat Side bilateral Equipment Used L2 band at knees Reps/Minutes 15 Comments chair taps Manual Therapy Treatment Soft Tissue Mobilization post Body Location R HS, lat glute, ITB, TFL Mobilization Type Rolling,Sustained Pressure Intensity/Depth Moderate Comments w/active assisted flex & IR Joint Mobilizations hip Comments R distraction & Post glide FM PT-OP-T Assessment and Plan Start: 08/29/23 10:56 Freq: Status: Active Protocol: Document 11/13/23 08:16 [facility] (Rec: 11/13/23 09:00 [facility] [id number]) Physical Therapy Assessment Goals balance Short Term Goal (STG) Pt will be able to do SLS B for at least 10 sec. 3/4-5 sec r;14 L STG Duration 10/21/23 Senior Care Goal (LTG) Pt will be able to do SLS B for at least 15 sec. LTG Duration 11/28/23 strength Short Term Goal (STG) Pt will be indep w/HEP STG Duration achieved advancing as able Insulation Worker Goal (LTG) Pt will score at least 3/5 on LPM in all planes and at least 4+/5 on all B LE MMT to show improved strength in order for pt to hav greater ease with movement. 3/4-improved LTG Duration 11/28/23 ROM Short Term Goal (STG) Pt will have enough hip ROM to be able to don and doff shoes and socks w/o inc difficulty 3/4-a little easier STG Duration 10/12/23 Insulation Worker Goal (LTG) Pt will be able to pick things off the ground w/o difficulty or pain. 3/4-feels stiff in back but no pain LTG Duration 11/28/23 activities Senior Care Goal (LTG) Pt will be able to walk, do stairs and do all activities around her house and travelling w/o feeling of weakness or fatigue of RLE limiting her 3/4- stairs are easier; not as fast as used to be still but walking more pleasurable d/t no giving out of hip; has gone on some trails LTG Duration 11/28/23 Assessment Summary Assessment Pt did well with resuming strength. Adjusted exercises w /cues for posture and core to help improve facilitation and dec pain. Pt instructed strength exercises are not to inc pain. Still has limited IR despite manual likely d/t her signfiicant OA Physical Therapy Plan Frequency and Duration Frequency of Treatment 1-2x/wk Duration of treatment (weeks) 12 Plan of Care Start Date 09/05/23 Plan of Care End Date 11/28/23 Next Visit Focus/Plan Next Note Type Treatment Note Next Visit Plan assess how pt tolerated returnt o strength
--- NOTE | 2023-11-22 15:17 | PT.OTN ---
Current Diagnoses Unilateral primary osteoarthritis, right hip (11/22/23) Difficulty in walking, not elsewhere classified (11/22/23) Abnormal posture (11/22/23) Weakness (11/22/23) Physical Therapy Treatment Note PT-OP-A Visit Information Start: 08/29/23 10:56 Freq: Status: Active Protocol: Document 11/22/23 14:37 SP (Rec: 11/22/23 15:50 SP [id number]) Out-Patient Physical Therapy Visit Information Visit Information Visit Type Treatment Note Visit Note 12/20 Visit Start Time 14:37 Visit Stop Time 15:17 Visit Number 13 Number of AGENCY OPERATOR Visits 1 PT-OP-B Current Condition Start: 08/29/23 10:56 Freq: Status: Active Protocol: Document 09/05/23 07:29 [facility] (Rec: 09/05/23 11:18 LR [id number]) Current Condition History of Current Condition Onset Date gradually last year spring Current Complaints R hip History of Current Condition Pt reports she is bone on bone per doctor and she is a candidate for hip replacement but started with an injection and that really helped. She feels like [facility] needs strengthening because she has avoided activity. She is hoping for some strengthening. She volunteers for the [employer] in the summer and rides or hikes to get to areas they are working. She noticed getting up/down from the horse was really hard. 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 Pt reprots when pain got excrutiating in Jun, she would have to sit down mid day. She would stop doing stairs. injection was mid dec. Pt consistantly walks about 2-3 miles a day that is pretty much flat. Had to really limit her walking or not walk prior to shot. had to sig limit activity prior to shot Treatment Goals Patient/Caregiver Goals build strength, be able to tie R shoe and don R sock, bending down to pick something off ground; be able to do stairs easier PT-OP-C Subjective Start: 08/29/23 10:56 Freq: Status: Active Protocol: Document 11/22/23 14:37 SP (Rec: 11/22/23 15:50 SP [id number]) OP-PT Subjective Patient Comments Patient Comments Pt reports did get an injection but not as successful, still having pain but feel stronger. Manual helped after last tx. PT-OP-D Balance Start: 08/29/23 10:56 Freq: Status: Active Protocol: Document 10/15/23 16:27 [facility] (Rec: 10/15/23 17:36 [facility] [id number]) Balance Tests Single Limb Standing Single Limb- Right 5 sec Single Limb- Left 14sec PT-OP-F Manual Assessment Start: 08/29/23 10:56 Freq: Status: Active Protocol: Document 09/05/23 07:29 [facility] (Rec: 09/05/23 11:18 [facility] [id number]) Manual Assessments Joint Mobility Assessment Joint Mobility Assessment clunking and crepetits w/ROM of R hip PT-OP-G Mobility & Gait Start: 08/29/23 10:56 Freq: Status: Active Protocol: Document 09/05/23 07:29 [facility] (Rec: 09/05/23 11:18 [facility] [id number]) OP Gait Assessment Comments Gait Comments hard landing on RLE w/lat lean on RLE PT-OP-J Posture/Palpation/Skin Start: 08/29/23 10:56 Freq: Status: Active Protocol: Document 10/15/23 16:27 [facility] (Rec: 10/15/23 17:36 [facility] [id number]) Posture Evaluation Damián Postural Classification System Lumbar Protective Mechanism Left AP 2 Lumbar Protective Mechanism Right AP 2 Lumbar Protective Mechanism Left PA 2 Lumbar Protective Mechanism Right PA 2 PT-OP-K Range of Motion Start: 08/29/23 10:56 Freq: Status: Active Protocol: Document 09/05/23 07:29 [facility] (Rec: 09/05/23 11:18 [facility] [id number]) Hip Goniometric Range of Motion Hip Left Active Flexion w/Knee Flexed 105 Straight Leg Raise 91 Right Active Flexion w/Knee Flexed 100 Straight Leg Raise 69 Comments pain w/groin PT-OP-M Strength Start: 08/29/23 10:56 Freq: Status: Active Protocol: Document 10/15/23 16:27 [facility] (Rec: 10/15/23 17:36 [facility] [id number]) Hip Strength Hip Manual Muscle Testing Right Flexion (L2) 4 Good Extension (S1) 3+ Fair+ Abduction 3+ Fair+ Adduction 4- Good- External Rotation 4- Good- Internal Rotation 5 Normal Left Flexion (L2) 4 Good Extension (S1) 3+ Fair+ Abduction 4- Good- Adduction 4 Good External Rotation 4 Good Internal Rotation 5 Normal Knee Strength Knee Manual Muscle Testing Right Flexion (S2) 5 Normal Extension (L3) 5 Normal Left Flexion (S2) 5 Normal Extension (L3) 5 Normal Ankle/Foot Strength Ankle and Foot Manual Muscle Testing Right Dorsiflexion (L4) 5 Normal Left Dorsiflexion (L4) 5 Normal PT-OP-Q Treatments Start: 08/29/23 10:56 Freq: Status: Active Protocol: Document 11/22/23 14:37 SP (Rec: 11/22/23 15:50 SP [id number]) Therapeutic Exercises Standing Exercises march Side bilateral Equipment Used L1 at arch foot Reps/Minutes 10 ea Comments light contact rail, improved WB and posturing RDL Standing Exercise Name 1. DL 2.SL w/rail Min 1 hand Side bilateral Resistance front mirror Equipment Used 1. dowel AROM > 4# leg wt 2. hip hinge AROM (little groin tension R stanc) Reps/Minutes 12 ea Comments cued straight back, hip hinge, soft knee, level pelvis stretch Standing Exercise Name 1. hip flexor Side right Equipment Used counter support Reps/Minutes 1. 30 sec Comments angled pelvis & hip IR also felt adductor stretch sidestep Side bilateral Equipment Used L2 ankles Reps/Minutes 20ft ea Comments good form squat Standing Exercise Name mini squat- taps chair arm height Side bilateral Equipment Used L2 band at knees Reps/Minutes 15 Comments chair arm height taps- improved from prev appts reports Manual Therapy Treatment Soft Tissue Mobilization post Body Location R HS, lat glute, ITB, TFL Mobilization Type Instrument Assisted,Rolling, Sustained Pressure Intensity/Depth Moderate Comments Rolling pin to ITB, w/active assisted flex & IR- discussed self tennis ball wall and rolling pin- verbalized will try these- Good hurt, more relaxed muscles Joint Mobilizations hip Comments R long axis distraction. Not successful use strap today. PT-OP-T Assessment and Plan Start: 08/29/23 10:56 Freq: Status: Active Protocol: Document 11/22/23 14:37 SP (Rec: 11/22/23 15:50 SP [id number]) Physical Therapy Assessment Goals balance Short Term Goal (STG) Pt will be able to do SLS B for at least 10 sec. 3/4-5 sec r;14 L STG Duration 10/21/23 Utility Inspector Goal (LTG) Pt will be able to do SLS B for at least 15 sec. LTG Duration 11/28/23 strength Short Term Goal (STG) Pt will be indep w/HEP STG Duration achieved advancing as able Utility Inspector Goal (LTG) Pt will score at least 3/5 on LPM in all planes and at least 4+/5 on all B LE MMT to show improved strength in order for pt to hav greater ease with movement. 3/4-improved LTG Duration 11/28/23 ROM Short Term Goal (STG) Pt will have enough hip ROM to be able to don and doff shoes and socks w/o inc difficulty 3/4-a little easier STG Duration 10/12/23 Utility Inspector Goal (LTG) Pt will be able to pick things off the ground w/o difficulty or pain. 3/4-feels stiff in back but no pain LTG Duration 11/28/23 activities Assisted Goal (LTG) Pt will be able to walk, do stairs and do all activities around her house and travelling w/o feeling of weakness or fatigue of RLE limiting her 3/4- stairs are easier; not as fast as used to be still but walking more pleasurable d/t no giving out of hip; has gone on some trails LTG Duration 11/28/23 Assessment Summary Assessment Pt good response to manual, reduction R hip muscular tension post manual with good understanding self tennisball wall and rolling pin discussed . Cues for knee alignment during resisted stepping strengthening exercises and level hip during SL RDL, slight R groin tension, went away after hip flexor stretch. Physical Therapy Plan Frequency and Duration Frequency of Treatment 1-2x/wk Duration of treatment (weeks) 12 Plan of Care Start Date 09/05/23 Plan of Care End Date 11/28/23 Therapeutic Interventions Therapeutic Interventions Balance Training,Gait Training ,Home Exercise Program,Joint Mobilizations,Manual Therapy, Neuromuscular Re-education, Orthotic/Prosthetic Management ,Patient/Caregiver Education, Self-Care/Home Management,Soft Tissue Mobilization,Taping, Therapeutic Activities, Therapeutic Exercises Modalities Cold Pack/Ice Massage,Electric Stimulation,Hot Packs, Infrared Therapy,Ultrasound Next Visit Focus/Plan Next Note Type Progress Note Next Visit Plan Updated POC next tx POC: continue with positive feedback progress strengthening
--- NOTE | 2023-11-26 18:23 | PT.OTN ---
Current Diagnoses Unilateral primary osteoarthritis, right hip (11/26/23) Difficulty in walking, not elsewhere classified (11/26/23) Abnormal posture (11/26/23) Weakness (11/26/23) Physical Therapy Treatment Note PT-OP-A Visit Information Start: 08/29/23 10:56 Freq: Status: Active Protocol: Document 11/26/23 16:05 [facility] (Rec: 11/26/23 18:22 [facility] [id number]) Out-Patient Physical Therapy Visit Information Visit Information Visit Type Progress Note Visit Start Time 16:51 Visit Stop Time 17:31 Visit Number 14 Number of FINANCIAL SALES ASSOCIATE Visits 0 PT-OP-B Current Condition Start: 08/29/23 10:56 Freq: Status: Active Protocol: Document 09/05/23 07:29 [facility] (Rec: 09/05/23 11:18 [facility] [id number]) Current Condition History of Current Condition Onset Date gradually last year spring Current Complaints R hip History of Current Condition Pt reports she is bone on bone per doctor and she is a candidate for hip replacement but started with an injection and that really helped. She feels like [facility] needs strengthening because she has avoided activity. She is hoping for some strengthening. She volunteers for the [employer] in the summer and rides or hikes to get to areas they are working. She noticed getting up/down from the horse was really hard. 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 Pt reprots when pain got excrutiating in Jun, she would have to sit down mid day. She would stop doing stairs. injection was mid dec. Pt consistantly walks about 2-3 miles a day that is pretty much flat. Had to really limit her walking or not walk prior to shot. had to sig limit activity prior to shot Treatment Goals Patient/Caregiver Goals build strength, be able to tie R shoe and don R sock, bending down to pick something off ground; be able to do stairs easier PT-OP-C Subjective Start: 08/29/23 10:56 Freq: Status: Active Protocol: Document 11/26/23 16:05 [facility] (Rec: 11/26/23 18:22 [facility] [id number]) OP-PT Subjective Patient Comments Patient Comments Pt reports the soreness is still there. she is stretching better. Still harder to get socks on that side PT-OP-D Balance Start: 08/29/23 10:56 Freq: Status: Active Protocol: Document 10/15/23 16:27 [facility] (Rec: 10/15/23 17:36 [facility] [id number]) Balance Tests Single Limb Standing Single Limb- Right 5 sec Single Limb- Left 14sec PT-OP-F Manual Assessment Start: 08/29/23 10:56 Freq: Status: Active Protocol: Document 09/05/23 07:29 [facility] (Rec: 09/05/23 11:18 [facility] [id number]) Manual Assessments Joint Mobility Assessment Joint Mobility Assessment clunking and crepetits w/ROM of R hip PT-OP-G Mobility & Gait Start: 08/29/23 10:56 Freq: Status: Active Protocol: Document 09/05/23 07:29 [facility] (Rec: 09/05/23 11:18 [facility] [id number]) OP Gait Assessment Comments Gait Comments hard landing on RLE w/lat lean on RLE PT-OP-J Posture/Palpation/Skin Start: 08/29/23 10:56 Freq: Status: Active Protocol: Document 10/15/23 16:27 [facility] (Rec: 10/15/23 17:36 [facility] [id number]) Posture Evaluation Damián Postural Classification System Lumbar Protective Mechanism Left AP 2 Lumbar Protective Mechanism Right AP 2 Lumbar Protective Mechanism Left PA 2 Lumbar Protective Mechanism Right PA 2 PT-OP-K Range of Motion Start: 08/29/23 10:56 Freq: Status: Active Protocol: Document 09/05/23 07:29 [facility] (Rec: 09/05/23 11:18 [facility] [id number]) Hip Goniometric Range of Motion Hip Left Active Flexion w/Knee Flexed 105 Straight Leg Raise 91 Right Active Flexion w/Knee Flexed 100 Straight Leg Raise 69 Comments pain w/groin PT-OP-M Strength Start: 08/29/23 10:56 Freq: Status: Active Protocol: Document 11/26/23 16:05 [facility] (Rec: 11/26/23 18:22 [facility] [id number]) Hip Strength Hip Manual Muscle Testing Right Flexion (L2) 4+ Good+ Extension (S1) 4 Good Abduction 4- Good- Adduction 4- Good- External Rotation 4+ Good+ Internal Rotation 5 Normal Left Flexion (L2) 4+ Good+ Extension (S1) 4- Good- Abduction 4 Good Adduction 5 Normal External Rotation 4+ Good+ Internal Rotation 5 Normal Comments pain R groin w/hip ext Knee Strength Knee Manual Muscle Testing Right Flexion (S2) 5 Normal Extension (L3) 5 Normal Left Flexion (S2) 5 Normal Extension (L3) 5 Normal Ankle/Foot Strength Ankle and Foot Manual Muscle Testing Right Dorsiflexion (L4) 5 Normal Left Dorsiflexion (L4) 5 Normal PT-OP-Q Treatments Start: 08/29/23 10:56 Freq: Status: Active Protocol: Document 11/26/23 16:05 [facility] (Rec: 11/26/23 18:22 [facility] [id number]) Therapeutic Exercises Supine Exercises march Side bilateral Reps/Minutes 15 Comments cues for core Prone Exercises hip ext Prone Exercise Name alt Side bilateral Equipment Used pillow under abdomen Reps/Minutes 10 Standing Exercises paloff press Side bilateral Equipment Used orange bands Reps/Minutes 15 ea Other Exercises isometrics Other Exercise Name MMT BLE and LPM B Manual Therapy Treatment Soft Tissue Mobilization post Body Location B ES Mobilization Type Rolling,Strumming Intensity/Depth Moderate Body Position Prone Joint Mobilizations lumbar Comments R L3 and 4 down glide FM sacrum Comments L UPA innominate Comments L ext FM PT-OP-T Assessment and Plan Start: 08/29/23 10:56 Freq: Status: Active Protocol: Document 11/26/23 16:05 [facility] (Rec: 11/26/23 18:22 [facility] [id number]) Physical Therapy Assessment Goals balance Short Term Goal (STG) Pt will be able to do SLS B for at least 10 sec. 3/4-5 sec r;14 L STG Duration 5/ [employer] Goal (LTG) Pt will be able to do SLS B for at least 15 sec. LTG Duration 6/10 strength Short Term Goal (STG) Pt will be indep w/HEP STG Duration achieved advancing as able Penitentiary Goal (LTG) Pt will score at least 3/5 on LPM in all planes and at least 4+/5 on all B LE MMT to show improved strength in order for pt to hav greater ease with movement. 3/4-improved 4/15-improved LTG Duration 6/10 ROM Short Term Goal (STG) Pt will have enough hip ROM to be able to don and doff shoes and socks w/o inc difficulty 10/14-a little easier 11/25-slightly improved STG Duration 12/11 [employer] Goal (LTG) Pt will be able to pick things off the ground w/o difficulty or pain. 3/-feels stiff in back but no pain LTG Duration achieved-r shoulder bothers some activities Penitentiary Goal (LTG) Pt will be able to walk, do stairs and do all activities around her house and travelling w/o feeling of weakness or fatigue of RLE limiting her 10/14- stairs are easier; not as fast as used to be still but walking more pleasurable d/t no giving out of hip; has gone on some trails 11/25-chooses stairs now, sometimes descending stairs difficult so holds rail; less fatigue noted LTG Duration 01/20 Assessment Summary Assessment Pt is making great progress w/ PT and is demonstrating imrpoved overall strength and balance along w/gait. She has improved functionala blity but still does show weakness and dec stabiltiy. Cont PT for this and for back stability and mobility as w/PT manual to LB, dec R hip pain Physical Therapy Plan Frequency and Duration Frequency of Treatment 1x/Week Duration of treatment (weeks) 8 Plan of Care Start Date 11/26/23 Plan of Care End Date 01/21/24 Therapeutic Interventions Therapeutic Interventions Balance Training,Gait Training ,Home Exercise Program,Joint Mobilizations,Manual Therapy, Neuromuscular Re-education, Orthotic/Prosthetic Management ,Patient/Caregiver Education, Self-Care/Home Management,Soft Tissue Mobilization,Taping, Therapeutic Activities, Therapeutic Exercises Modalities Cold Pack/Ice Massage,Electric Stimulation,Hot Packs, Infrared Therapy,Ultrasound Next Visit Focus/Plan Next Note Type Treatment Note Next Visit Plan continue with positive feedback progress strengthening and manual to improve pain
--- NOTE | 2023-11-26 18:23 | PT.OPPOC ---
Physical, Occupational & Speech Therapy At [facility] Current Diagnoses Unilateral primary osteoarthritis, right hip (11/26/23) Difficulty in walking, not elsewhere classified (11/26/23) Abnormal posture (11/26/23) Weakness (11/26/23) Visit Care Team Role Provider Type Jose Matute MD Family Provider Physician Primary Care Provider Specialty: Internal Medicine Address: [address] [place] [address], [id number] Email: [email or web address] Celso Avila MD Attending Provider Non-Staff Referring Provider Specialty: Orthopedic Surgery Address: [address] [place] [address] [place], [address] Email: Plan Of Care PT-OP-T Assessment and Plan Start: 08/29/23 10:56 Freq: Status: Active Protocol: Document 11/26/23 16:05 [facility] (Rec: 11/26/23 18:22 [facility] [id number]) Physical Therapy Assessment Goals balance Short Term Goal (STG) Pt will be able to do SLS B for at least 10 sec. 3/4-5 sec r;14 L STG Duration 12/11 Medicine Assistant Goal (LTG) Pt will be able to do SLS B for at least 15 sec. LTG Duration 6/10 strength Short Term Goal (STG) Pt will be indep w/HEP STG Duration achieved advancing as able Assisted Goal (LTG) Pt will score at least 3/5 on LPM in all planes and at least 4+/5 on all B LE MMT to show improved strength in order for pt to hav greater ease with movement. 3/4-improved 11/25-improved LTG Duration 6/10 ROM Short Term Goal (STG) Pt will have enough hip ROM to be able to don and doff shoes and socks w/o inc difficulty 3/4-a little easier 11/25-slightly improved STG Duration 5/ Medicine Assistant Goal (LTG) Pt will be able to pick things off the ground w/o difficulty or pain. 3/4-feels stiff in back but no pain LTG Duration achieved-r shoulder bothers some activities Assisted Goal (LTG) Pt will be able to walk, do stairs and do all activities around her house and travelling w/o feeling of weakness or fatigue of RLE limiting her 3/4- stairs are easier; not as fast as used to be still but walking more pleasurable d/t no giving out of hip; has gone on some trails 11/25-chooses stairs now, sometimes descending stairs difficult so holds rail; less fatigue noted LTG Duration 01/20 Assessment Summary Assessment Pt is making great progress w/ PT and is demonstrating imrpoved overall strength and balance along w/gait. She has improved functionala blity but still does show weakness and dec stabiltiy. Cont PT for this and for back stability and mobility as w/PT manual to lula ENAMORADO hip pain Physical Therapy Plan Frequency and Duration Frequency of Treatment 1x/Week Duration of treatment (weeks) 8 Plan of Care Start Date 11/26/23 Plan of Care End Date 01/21/24 Therapeutic Interventions Therapeutic Interventions Balance Training,Gait Training ,Home Exercise Program,Joint Mobilizations,Manual Therapy, Neuromuscular Re-education, Orthotic/Prosthetic Management ,Patient/Caregiver Education, Self-Care/Home Management,Soft Tissue Mobilization,Taping, Therapeutic Activities, Therapeutic Exercises Modalities Cold Pack/Ice Massage,Electric Stimulation,Hot Packs, Infrared Therapy,Ultrasound Next Visit Focus/Plan Next Note Type Treatment Note Next Visit Plan continue with positive feedback progress strengthening and manual to improve pain Plan of Care Dates Plan of Care Start Date 11/26/23 Plan of Care End Date 01/21/24 Electronically Signed by: Sandrine Gracia, PT 11/26/23 [id number] If you are in agreement with this Plan of Care, please return a signed and dated copy. I have reviewed this Plan of Care and certify that the skilled therapy services above are required to meet the patient?s needs. Physician Signature Date Printed Name and Credentials Clinical Instructor Signature Printed Name and Credentials
--- NOTE | 2023-12-10 17:12 | PT-OP ANOTE ---
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 She has been icing and swelling is slowly going down. She can wt bear okay, but had inc pain with a couple hrs work, so cancelled. Pt cancelled PT (for hip) d/t this injury d/t pt would not be able fully participate in session.
--- NOTE | 2023-12-27 14:38 | PT.OTN ---
Current Diagnoses Unilateral primary osteoarthritis, right hip (12/27/23) Difficulty in walking, not elsewhere classified (12/27/23) Abnormal posture (12/27/23) Weakness (12/27/23) Physical Therapy Treatment Note PT-OP-A Visit Information Start: 08/29/23 10:56 Freq: Status: Active Protocol: Document 12/27/23 13:48 [facility] (Rec: 12/27/23 14:38 [facility] [id number]) Out-Patient Physical Therapy Visit Information Visit Information Visit Type Treatment Note Visit Start Time 13:46 Visit Stop Time 14:24 Visit Number 15 Number of CLIMATOLOGY TEACHER Visits 0 PT-OP-B Current Condition Start: 08/29/23 10:56 Freq: Status: Active Protocol: Document 09/05/23 07:29 [facility] (Rec: 09/05/23 11:18 [facility] [id number]) Current Condition History of Current Condition Onset Date gradually last year spring Current Complaints R hip History of Current Condition Pt reports she is bone on bone per doctor and she is a candidate for hip replacement but started with an injection and that really helped. [facility] because she has avoided activity. She is hoping for some strengthening. She volunteers for the [facility] in the summer and rides or hikes to get to areas they are working. She noticed getting up/down from the horse was really hard. 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 Pt reprots when pain got excrutiating in Jun, she would have to sit down mid day. She would stop doing stairs. injection was mid dec. Pt consistantly walks about 2-3 miles a day that is pretty much flat. Had to really limit her walking or not walk prior to shot. had to sig limit activity prior to shot Treatment Goals Patient/Caregiver Goals build strength, be able to tie R shoe and don R sock, bending down to pick something off ground; be able to do stairs easier PT-OP-C Subjective Start: 08/29/23 10:56 Freq: Status: Active Protocol: Document 12/27/23 13:48 [facility] (Rec: 12/27/23 14:38 [facility] [id number]) OP-PT Subjective Patient Comments Patient Comments Pt had tripped and hurt her ant knee and had to cancel last visit d/t this and pain in knee preventing her from participating. she PT-OP-D Balance Start: 08/29/23 10:56 Freq: Status: Active Protocol: Document 10/15/23 16:27 [facility] (Rec: 10/15/23 17:36 [facility] [id number]) Balance Tests Single Limb Standing Single Limb- Right 5 sec Single Limb- Left 14sec PT-OP-F Manual Assessment Start: 08/29/23 10:56 Freq: Status: Active Protocol: Document 09/05/23 07:29 [facility] (Rec: 09/05/23 11:18 [facility] [id number]) Manual Assessments Joint Mobility Assessment Joint Mobility Assessment clunking and crepetits w/ROM of R hip PT-OP-G Mobility & Gait Start: 08/29/23 10:56 Freq: Status: Active Protocol: Document 09/05/23 07:29 [facility] (Rec: 09/05/23 11:18 [facility] [id number]) OP Gait Assessment Comments Gait Comments hard landing on RLE w/lat lean on RLE PT-OP-J Posture/Palpation/Skin Start: 08/29/23 10:56 Freq: Status: Active Protocol: Document 10/15/23 16:27 [facility] (Rec: 10/15/23 17:36 [facility] [id number]) Posture Evaluation Damián Postural Classification System Lumbar Protective Mechanism Left AP 2 Lumbar Protective Mechanism Right AP 2 Lumbar Protective Mechanism Left PA 2 Lumbar Protective Mechanism Right PA 2 PT-OP-K Range of Motion Start: 08/29/23 10:56 Freq: Status: Active Protocol: Document 09/05/23 07:29 [facility] (Rec: 09/05/23 11:18 [facility] [id number]) Hip Goniometric Range of Motion Hip Left Active Flexion w/Knee Flexed 105 Straight Leg Raise 91 Right Active Flexion w/Knee Flexed 100 Straight Leg Raise 69 Comments pain w/groin PT-OP-M Strength Start: 08/29/23 10:56 Freq: Status: Active Protocol: Document 11/26/23 16:05 [facility] (Rec: 11/26/23 18:22 [facility] [id number]) Hip Strength Hip Manual Muscle Testing Right Flexion (L2) 4+ Good+ Extension (S1) 4 Good Abduction 4- Good- Adduction 4- Good- External Rotation 4+ Good+ Internal Rotation 5 Normal Left Flexion (L2) 4+ Good+ Extension (S1) 4- Good- Abduction 4 Good Adduction 5 Normal External Rotation 4+ Good+ Internal Rotation 5 Normal Comments pain R groin w/hip ext Knee Strength Knee Manual Muscle Testing Right Flexion (S2) 5 Normal Extension (L3) 5 Normal Left Flexion (S2) 5 Normal Extension (L3) 5 Normal Ankle/Foot Strength Ankle and Foot Manual Muscle Testing Right Dorsiflexion (L4) 5 Normal Left Dorsiflexion (L4) 5 Normal PT-OP-Q Treatments Start: 08/29/23 10:56 Freq: Status: Active Protocol: Document 12/27/23 13:48 [facility] (Rec: 12/27/23 14:38 [facility] [id number]) Therapeutic Exercises Supine Exercises march Supine Exercise Name alt leg drops bent knee Side bilateral Reps/Minutes 10 ea bridge Supine Exercise Name slow controlled lift segmentally Side bilateral Reps/Minutes 10 Standing Exercises SL Standing Exercise Name stance attempts Side bilateral squat Standing Exercise Name cues for butt back Side bilateral Reps/Minutes 10 Manual Therapy Treatment Soft Tissue Mobilization post Body Location R glute, HS Mobilization Type Rolling,Strumming Intensity/Depth Moderate Comments w/AAROM flex hip flexor Body Location R iliacus and psoas insertion Mobilization Type Sustained Pressure Intensity/Depth Moderate Comments w/AAROM flex and heel slies lat Body Location R Mobilization Type Rolling,Strumming Intensity/Depth Moderate Body Position Hooklying Comments ITB, lat glutes, TFL add Body Location R R add longus and greg Mobilization Type Rolling Intensity/Depth Moderate Body Position Supine Comments w/AAROM hipabd PT-OP-T Assessment and Plan Start: 08/29/23 10:56 Freq: Status: Active Protocol: Document 12/27/23 13:48 [facility] (Rec: 12/27/23 14:38 [facility] [id number]) Physical Therapy Assessment Goals balance Short Term Goal (STG) Pt will be able to do SLS B for at least 10 sec. 3/4-5 sec r;14 L 16-3 sec, 9 sec L STG Duration / Custodial Goal (LTG) Pt will be able to do SLS B for at least 15 sec. LTG Duration 6/10 strength Short Term Goal (STG) Pt will be indep w/HEP STG Duration achieved advancing as able Custodial Goal (LTG) Pt will score at least 3/5 on LPM in all planes and at least 4+/5 on all B LE MMT to show improved strength in order for pt to hav greater ease with movement. 3/4-improved 11/25-improved LTG Duration 01/20 ROM Short Term Goal (STG) Pt will have enough hip ROM to be able to don and doff shoes and socks w/o inc difficulty 10/14-a little easier 11/25-slightly improved 12/26-leans back slightly to get leg up STG Duration 12/11 Custodial Goal (LTG) Pt will be able to pick things off the ground w/o difficulty or pain. 3/-feels stiff in back but no pain LTG Duration achieved-r shoulder bothers some activities Custodial Goal (LTG) Pt will be able to walk, do stairs and do all activities around her house and travelling w/o feeling of weakness or fatigue of RLE limiting her /- stairs are easier; not as fast as used to be still but walking more pleasurable d/t no giving out of hip; has gone on some trails 11/25-chooses stairs now, sometimes descending stairs difficult so holds rail; less fatigue noted 12/26-don't feel as good going down stairs, feels better overall about going down stairs LTG Duration 01/20 Assessment Summary Assessment Pt had set back d/t tripping and hitting L knee on ground which slowed down her ability to exercise for a while.S he is imprvoing but does still have some knee pain. Physical Therapy Plan Frequency and Duration Frequency of Treatment 1x/Week Duration of treatment (weeks) 8 Plan of Care Start Date 11/26/23 Plan of Care End Date 01/21/24 Therapeutic Interventions Therapeutic Interventions Balance Training,Gait Training ,Home Exercise Program,Joint Mobilizations,Manual Therapy, Neuromuscular Re-education, Orthotic/Prosthetic Management ,Patient/Caregiver Education, Self-Care/Home Management,Soft Tissue Mobilization,Taping, Therapeutic Activities, Therapeutic Exercises Modalities Cold Pack/Ice Massage,Electric Stimulation,Hot Packs, Infrared Therapy,Ultrasound Next Visit Focus/Plan Next Note Type Treatment Note Next Visit Plan continue with positive feedback progress strengthening and manual to improve pain
--- NOTE | 2024-01-10 09:00 | PT.OTN ---
Addendum entered and electronically signed by Shirley Wilkins PTA 01/10/24 09:05: Update POC next tx, exp 01/20 Original Note: Current Diagnoses Unilateral primary osteoarthritis, right hip (01/10/24) Difficulty in walking, not elsewhere classified (01/10/24) Abnormal posture (01/10/24) Weakness (01/10/24) Physical Therapy Treatment Note PT-OP-A Visit Information Start: 08/29/23 10:56 Freq: Status: Active Protocol: Document 01/10/24 08:22 [facility] (Rec: 01/10/24 09:03 [facility] [id number]) Out-Patient Physical Therapy Visit Information Visit Information Visit Type Treatment Note Visit Start Time 08:22 Visit Stop Time 09:00 Visit Number 16 Number of BINGO CHECKER Visits 1 PT-OP-B Current Condition Start: 08/29/23 10:56 Freq: Status: Active Protocol: Document 09/05/23 07:29 [facility] (Rec: 09/05/23 11:18 [facility] [id number]) Current Condition History of Current Condition Onset Date gradually last year spring Current Complaints R hip History of Current Condition Pt reports she is bone on bone per doctor and she is a candidate for hip replacement but started with an injection and that really helped. She feels like [facility] needs strengthening because she has avoided activity. She is hoping for some strengthening. She volunteers for the [employer] in the summer and rides or hikes to get to areas they are working. She noticed getting up/down from the horse was really hard. 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 Pt reprots when pain got excrutiating in Jun, she would have to sit down mid day. She would stop doing stairs. injection was mid jul. Pt consistantly walks about 2-3 miles a day that is pretty much flat. Had to really limit her walking or not walk prior to shot. had to sig limit activity prior to shot Treatment Goals Patient/Caregiver Goals build strength, be able to tie R shoe and don R sock, bending down to pick something off ground; be able to do stairs easier PT-OP-C Subjective Start: 08/29/23 10:56 Freq: Status: Active Protocol: Document 01/10/24 08:22 [facility] (Rec: 01/10/24 09:03 [facility] [id number]) OP-PT Subjective Patient Comments Patient Comments Pt reports her R hip bothering her with supine marching motion. She is going to look into if should get another injection in January, last 1 was October, might consider hip surgery. She states uses railing (just right height) in [employer] and able flex/ext knee for added pressure vs ball wall. She thinks getting tighter, manual in PT helps alot. PT-OP-D Balance Start: 08/29/23 10:56 Freq: Status: Active Protocol: Document 10/15/23 16:27 [facility] (Rec: 10/15/23 17:36 [facility] [id number]) Balance Tests Single Limb Standing Single Limb- Right 5 sec Single Limb- Left 14sec PT-OP-F Manual Assessment Start: 08/29/23 10:56 Freq: Status: Active Protocol: Document 09/05/23 07:29 [facility] (Rec: 09/05/23 11:18 [facility] [id number]) Manual Assessments Joint Mobility Assessment Joint Mobility Assessment clunking and crepetits w/ROM of R hip PT-OP-G Mobility & Gait Start: 08/29/23 10:56 Freq: Status: Active Protocol: Document 09/05/23 07:29 [facility] (Rec: 09/05/23 11:18 [facility] [id number]) OP Gait Assessment Comments Gait Comments hard landing on RLE w/lat lean on RLE PT-OP-J Posture/Palpation/Skin Start: 08/29/23 10:56 Freq: Status: Active Protocol: Document 10/15/23 16:27 [facility] (Rec: 10/15/23 17:36 [facility] [id number]) Posture Evaluation Damián Postural Classification System Lumbar Protective Mechanism Left AP 2 Lumbar Protective Mechanism Right AP 2 Lumbar Protective Mechanism Left PA 2 Lumbar Protective Mechanism Right PA 2 PT-OP-K Range of Motion Start: 08/29/23 10:56 Freq: Status: Active Protocol: Document 09/05/23 07:29 [facility] (Rec: 09/05/23 11:18 [facility] [id number]) Hip Goniometric Range of Motion Hip Left Active Flexion w/Knee Flexed 105 Straight Leg Raise 91 Right Active Flexion w/Knee Flexed 100 Straight Leg Raise 69 Comments pain w/groin PT-OP-M Strength Start: 08/29/23 10:56 Freq: Status: Active Protocol: Document 11/26/23 16:05 [facility] (Rec: 11/26/23 18:22 [facility] [id number]) Hip Strength Hip Manual Muscle Testing Right Flexion (L2) 4+ Good+ Extension (S1) 4 Good Abduction 4- Good- Adduction 4- Good- External Rotation 4+ Good+ Internal Rotation 5 Normal Left Flexion (L2) 4+ Good+ Extension (S1) 4- Good- Abduction 4 Good Adduction 5 Normal External Rotation 4+ Good+ Internal Rotation 5 Normal Comments pain R groin w/hip ext Knee Strength Knee Manual Muscle Testing Right Flexion (S2) 5 Normal Extension (L3) 5 Normal Left Flexion (S2) 5 Normal Extension (L3) 5 Normal Ankle/Foot Strength Ankle and Foot Manual Muscle Testing Right Dorsiflexion (L4) 5 Normal Left Dorsiflexion (L4) 5 Normal PT-OP-Q Treatments Start: 08/29/23 10:56 Freq: Status: Active Protocol: Document 01/10/24 08:22 [facility] (Rec: 01/10/24 09:03 [facility] [id number]) Therapeutic Exercises Supine Exercises stretches Supine Exercise Name 1. piriformis 2. figure 4 ( ankle over opp thigh) 3. Luis M stretch Side bilateral Reps/Minutes 30 sec x2 bridge Supine Exercise Name slow pelvic PPT segmentally roll lift Side bilateral Reps/Minutes 10 Comments improved form wiht slow pacing and stability Standing Exercises SL Standing Exercise Name stance attempts Side bilateral Reps/Minutes RLE 8 sec Comments improved elongated over RLE, level pelvis wt shift Standing Exercise Name L and R depression/slight lat glide Side bilateral Equipment Used mirror Reps/Minutes 10 reps- Comments even BLE WB, soft knee, level pelvis- Manual Therapy Treatment Soft Tissue Mobilization hip flexor Body Location R iliacus and psoas insertion Mobilization Type Sustained Pressure Intensity/Depth Moderate Body Position Supine Comments w/hip IR/ ER long axis lat Body Location R Mobilization Type Rolling,Strumming Intensity/Depth Moderate Body Position Hooklying Comments ITB, lat glutes, TFL add Body Location R R add longus and greg Mobilization Type Rolling Intensity/Depth Moderate Body Position Supine Comments w/AAROM hip abd Joint Mobilizations hip Comments R anteromedial glide /c strap during hip abd- good feedback response, that feels good on my hip able move out without pain PT-OP-T Assessment and Plan Start: 08/29/23 10:56 Freq: Status: Active Protocol: Document 01/10/24 08:22 [facility] (Rec: 01/10/24 09:03 [facility] [id number]) Physical Therapy Assessment Goals balance Short Term Goal (STG) Pt will be able to do SLS B for at least 10 sec. 3/4-5 sec r;14 L 12/26-3 sec, 9 sec L STG Duration 12/11 Senior Report Developer Goal (LTG) Pt will be able to do SLS B for at least 15 sec. LTG Duration 01/20 strength Short Term Goal (STG) Pt will be indep w/HEP STG Duration achieved advancing as able Snf Goal (LTG) Pt will score at least 3/5 on LPM in all planes and at least 4+/5 on all B LE MMT to show improved strength in order for pt to hav greater ease with movement. 3/4-improved 11/25-improved LTG Duration 01/20 ROM Short Term Goal (STG) Pt will have enough hip ROM to be able to don and doff shoes and socks w/o inc difficulty 10/14-a little easier 11/25-slightly improved 12/26-leans back slightly to get leg up STG Duration 12/11 Snf Goal (LTG) Pt will be able to pick things off the ground w/o difficulty or pain. 3/-feels stiff in back but no pain LTG Duration achieved-r shoulder bothers some activities Senior Report Developer Goal (LTG) Pt will be able to walk, do stairs and do all activities around her house and travelling w/o feeling of weakness or fatigue of RLE limiting her 3/4- stairs are easier; not as fast as used to be still but walking more pleasurable d/t no giving out of hip; has gone on some trails 11/25-chooses stairs now, sometimes descending stairs difficult so holds rail; less fatigue noted 12/26-don't feel as good going down stairs, feels better overall about going down stairs LTG Duration 01/20 Assessment Summary Assessment Pt reported pain and tightness reduction post manual and able to find neutral spine standing in mirror with VCs for L hip depression for level pelvis improved SLS on R up to 8 sec. Physical Therapy Plan Frequency and Duration Frequency of Treatment 1x/Week Duration of treatment (weeks) 8 Plan of Care Start Date 11/26/23 Plan of Care End Date 01/21/24 Therapeutic Interventions Therapeutic Interventions Balance Training,Gait Training ,Home Exercise Program,Joint Mobilizations,Manual Therapy, Neuromuscular Re-education, Orthotic/Prosthetic Management ,Patient/Caregiver Education, Self-Care/Home Management,Soft Tissue Mobilization,Taping, Therapeutic Activities, Therapeutic Exercises Modalities Cold Pack/Ice Massage,Electric Stimulation,Hot Packs, Infrared Therapy,Ultrasound Next Visit Focus/Plan Next Note Type Treatment Note Next Visit Plan Continue R hip manual and base TA and ROM. Assess WB with alignment. POC: continue with positive feedback progress strengthening and manual to improve pain
--- NOTE | 2024-01-23 15:34 | PT.OTN ---
Current Diagnoses Unilateral primary osteoarthritis, right hip (01/23/24) Difficulty in walking, not elsewhere classified (01/23/24) Abnormal posture (01/23/24) Weakness (01/23/24) Physical Therapy Treatment Note PT-OP-A Visit Information Start: 08/29/23 10:56 Freq: Status: Active Protocol: Document 01/23/24 14:37 [facility] (Rec: 01/23/24 15:34 [facility] [id number]) Out-Patient Physical Therapy Visit Information Visit Information Visit Type Progress Note Visit Start Time 14:37 Visit Stop Time 15:16 Visit Number 17 Number of ORANGE PICKER Visits 0 PT-OP-B Current Condition Start: 08/29/23 10:56 Freq: Status: Active Protocol: Document 09/05/23 07:29 [facility] (Rec: 09/05/23 11:18 [facility] [id number]) Current Condition History of Current Condition Onset Date gradually last year spring Current Complaints R hip History of Current Condition Pt reports she is bone on bone per doctor and she is a candidate for hip replacement but started with an injection and that really helped. She feels like [facility] needs strengthening because she has avoided activity. She is hoping for some strengthening. She volunteers for the [employer] in the summer and rides or hikes to get to areas they are working. She noticed getting up/down from the horse was really hard. 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 Pt reprots when pain got excrutiating in Jun, she would have to sit down mid day. She would stop doing stairs. injection was mid dec. Pt consistantly walks about 2-3 miles a day that is pretty much flat. Had to really limit her walking or not walk prior to shot. had to sig limit activity prior to shot Treatment Goals Patient/Caregiver Goals build strength, be able to tie R shoe and don R sock, bending down to pick something off ground; be able to do stairs easier PT-OP-C Subjective Start: 08/29/23 10:56 Freq: Status: Active Protocol: Document 01/23/24 14:37 [facility] (Rec: 01/23/24 15:34 [facility] [id number]) OP-PT Subjective Patient Comments Patient Comments reports inc pain w/injection wearing off PT-OP-D Balance Start: 08/29/23 10:56 Freq: Status: Active Protocol: Document 01/23/24 14:37 [facility] (Rec: 01/23/24 15:34 [facility] [id number]) Balance Tests Single Limb Standing Single Limb- Right 4 sec Single Limb- Left 22 sec PT-OP-F Manual Assessment Start: 08/29/23 10:56 Freq: Status: Active Protocol: Document 09/05/23 07:29 [facility] (Rec: 09/05/23 11:18 [facility] [id number]) Manual Assessments Joint Mobility Assessment Joint Mobility Assessment clunking and crepetits w/ROM of R hip PT-OP-G Mobility & Gait Start: 08/29/23 10:56 Freq: Status: Active Protocol: Document 09/05/23 07:29 [facility] (Rec: 09/05/23 11:18 [facility] [id number]) OP Gait Assessment Comments Gait Comments hard landing on RLE w/lat lean on RLE PT-OP-J Posture/Palpation/Skin Start: 08/29/23 10:56 Freq: Status: Active Protocol: Document 01/23/24 14:37 [facility] (Rec: 01/23/24 15:34 [facility] [id number]) Posture Evaluation Damián Postural Classification System Lumbar Protective Mechanism Left AP 4 Lumbar Protective Mechanism Right AP 2 Lumbar Protective Mechanism Left PA 2 Lumbar Protective Mechanism Right PA 2 PT-OP-K Range of Motion Start: 08/29/23 10:56 Freq: Status: Active Protocol: Document 09/05/23 07:29 [facility] (Rec: 09/05/23 11:18 [facility] [id number]) Hip Goniometric Range of Motion Hip Left Active Flexion w/Knee Flexed 105 Straight Leg Raise 91 Right Active Flexion w/Knee Flexed 100 Straight Leg Raise 69 Comments pain w/groin PT-OP-M Strength Start: 08/29/23 10:56 Freq: Status: Active Protocol: Document 01/23/24 14:37 [facility] (Rec: 01/23/24 15:34 [facility] [id number]) Hip Strength Hip Manual Muscle Testing Right Flexion (L2) 4 Good Extension (S1) 5 Normal Abduction 4- Good- Adduction 4- Good- External Rotation 4+ Good+ Internal Rotation 5 Normal Left Flexion (L2) 5 Normal Extension (S1) 5 Normal Abduction 4+ Good+ Adduction 5 Normal External Rotation 5 Normal Internal Rotation 5 Normal Comments pain R groin w/hip ext Knee Strength Knee Manual Muscle Testing Right Flexion (S2) 5 Normal Extension (L3) 5 Normal Left Flexion (S2) 5 Normal Extension (L3) 5 Normal Ankle/Foot Strength Ankle and Foot Manual Muscle Testing Right Dorsiflexion (L4) 5 Normal Left Dorsiflexion (L4) 5 Normal PT-OP-Q Treatments Start: 08/29/23 10:56 Freq: Status: Active Protocol: Document 01/23/24 14:37 [facility] (Rec: 01/23/24 15:34 [facility] [id number]) Therapeutic Exercises Supine Exercises stretches Supine Exercise Name 1. piriformis 2. figure 4 ( ankle over opp thigh) Side right Reps/Minutes 30 sec bridge Supine Exercise Name slow pelvic PPT segmentally roll lift Side bilateral Reps/Minutes 10sec x4 Standing Exercises SL Standing Exercise Name stance attempts Side bilateral Comments mult trials march Side bilateral Reps/Minutes 10 ea Comments cues core and comofrtable range quad stretch Side right Reps/Minutes 30 sec sidestep Side bilateral Equipment Used L2 ankles Reps/Minutes 10ft ea Comments good form squat Standing Exercise Name 1. fwd ft 2. sumo Side bilateral Reps/Minutes 10 ea Comments cues end range hip ext Other Exercises isometrics Other Exercise Name MMT BLE and LPM B Manual Therapy Treatment Soft Tissue Mobilization quad Body Location R Mobilization Type Rolling,Strumming Intensity/Depth Moderate hip flexor Body Location R iliacus and psoas insertion & TFL Mobilization Type Sustained Pressure Intensity/Depth Moderate Body Position Supine Joint Mobilizations hip Comments Inf glide & PA glide II PT-OP-T Assessment and Plan Start: 08/29/23 10:56 Freq: Status: Active Protocol: Document 01/23/24 14:37 [facility] (Rec: 01/23/24 15:34 [facility] [id number]) Physical Therapy Assessment Goals balance Short Term Goal (STG) Pt will be able to do SLS B for at least 10 sec. 3/4-5 sec r;14 L 5/16-3 sec, 9 sec L 6/12- 4sec R; 22 sec L improved STG Duration 7/ Fpc Goal (LTG) Pt will be able to do SLS B for at least 15 sec. LTG Duration 8/ strength Short Term Goal (STG) Pt will be indep w/HEP STG Duration achieved advancing as able Steam Service Inspector Goal (LTG) Pt will score at least 3/5 on LPM in all planes and at least 4+/5 on all B LE MMT to show improved strength in order for pt to hav greater ease with movement. 3/4-improved 11/25-improved 01/22-no major change except LPM improve core stability LTG Duration 03/13 ROM Short Term Goal (STG) Pt will have enough hip ROM to be able to don and doff shoes and socks w/o inc difficulty 3/4-a little easier 11/25-slightly improved 12/26-leans back slightly to get leg up STG Duration DC goal as pt making little progress likely d/t OA Fpc Goal (LTG) Pt will be able to pick things off the ground w/o difficulty or pain. 3/-feels stiff in back but no pain LTG Duration achieved-r shoulder bothers some activities Steam Service Inspector Goal (LTG) Pt will be able to walk, do stairs and do all activities around her house and travelling w/o feeling of weakness or fatigue of RLE limiting her 3/4- stairs are easier; not as fast as used to be still but walking more pleasurable d/t no giving out of hip; has gone on some trails 11/25-chooses stairs now, sometimes descending stairs difficult so holds rail; less fatigue noted 12/26-don't feel as good going down stairs, feels better overall about going down stairs 01/22-pain inc recently since cortizone shot worn off LTG Duration 03/27 Assessment Summary Assessment Pt does have improved balance but HEP has had to be adjusted d/t inc pain as her injection has worn off and she plans to get another tomorrow.S he will follow up 1 futher time w /PT to make sure HEP is set for DC until surgery. Cont prehab to improve strength, ROM and balance prior to planned MICHAEL Physical Therapy Plan Frequency and Duration Frequency of Treatment every other-1x/Week Duration of treatment (weeks) 8 Plan of Care Start Date 01/23/24 Plan of Care End Date 03/27/24 Therapeutic Interventions Therapeutic Interventions Balance Training,Gait Training ,Home Exercise Program,Joint Mobilizations,Manual Therapy, Neuromuscular Re-education, Orthotic/Prosthetic Management ,Patient/Caregiver Education, Self-Care/Home Management,Soft Tissue Mobilization,Taping, Therapeutic Activities, Therapeutic Exercises Modalities Cold Pack/Ice Massage,Electric Stimulation,Hot Packs, Infrared Therapy,Ultrasound Next Visit Focus/Plan Next Note Type Discharge Summary Next Visit Plan review HEP as needed
--- NOTE | 2024-01-23 15:34 | PT.OPPOC ---
Physical, Occupational & Speech Therapy At [facility] Current Diagnoses Unilateral primary osteoarthritis, right hip (01/23/24) Difficulty in walking, not elsewhere classified (01/23/24) Abnormal posture (01/23/24) Weakness (01/23/24) Visit Care Team Role Provider Type Jose Matute MD Family Provider Physician Primary Care Provider Specialty: Internal Medicine Address: [address] [place] [address], [address] Email: [email or web address] Celso Avila MD Attending Provider Non-Staff Referring Provider Specialty: Orthopedic Surgery Address: [address] [place] [address] , [place], [address] Email: Plan Of Care PT-OP-T Assessment and Plan Start: 08/29/23 10:56 Freq: Status: Active Protocol: Document 01/23/24 14:37 [facility] (Rec: 01/23/24 15:34 [facility] [id number]) Physical Therapy Assessment Goals balance Short Term Goal (STG) Pt will be able to do SLS B for at least 10 sec. 4-5 sec r;14 L 12/26-3 sec, 9 sec L 01/22- 4sec R; 22 sec L improved STG Duration 02/10 Floriculturist Goal (LTG) Pt will be able to do SLS B for at least 15 sec. LTG Duration 03/13 strength Short Term Goal (STG) Pt will be indep w/HEP STG Duration achieved advancing as able Custodial Goal (LTG) Pt will score at least 3/5 on LPM in all planes and at least 4+/5 on all B LE MMT to show improved strength in order for pt to hav greater ease with movement. 3/4-improved 11/25-improved 01/22-no major change except LPM improve core stability LTG Duration 8/ ROM Short Term Goal (STG) Pt will have enough hip ROM to be able to don and doff shoes and socks w/o inc difficulty 3/4-a little easier 11/25-slightly improved 12/26-leans back slightly to get leg up STG Duration DC goal as pt making little progress likely d/t OA Custodial Goal (LTG) Pt will be able to pick things off the ground w/o difficulty or pain. 3/4-feels stiff in back but no pain LTG Duration achieved-r shoulder bothers some activities Floriculturist Goal (LTG) Pt will be able to walk, do stairs and do all activities around her house and travelling w/o feeling of weakness or fatigue of RLE limiting her 3/4- stairs are easier; not as fast as used to be still but walking more pleasurable d/t no giving out of hip; has gone on some trails 11/25-chooses stairs now, sometimes descending stairs difficult so holds rail; less fatigue noted 12/26-don't feel as good going down stairs, feels better overall about going down stairs 01/22-pain inc recently since cortizone shot worn off LTG Duration 03/27 Assessment Summary Assessment Pt does have improved balance but HEP has had to be adjusted d/t inc pain as her injection has worn off and she plans to get another tomorrow.S he will follow up 1 futher time w /PT to make sure HEP is set for DC until surgery. Cont prehab to improve strength, ROM and balance prior to planned MICHAEL Physical Therapy Plan Frequency and Duration Frequency of Treatment every other-1x/Week Duration of treatment (weeks) 8 Plan of Care Start Date 01/23/24 Plan of Care End Date 03/27/24 Therapeutic Interventions Therapeutic Interventions Balance Training,Gait Training ,Home Exercise Program,Joint Mobilizations,Manual Therapy, Neuromuscular Re-education, Orthotic/Prosthetic Management ,Patient/Caregiver Education, Self-Care/Home Management,Soft Tissue Mobilization,Taping, Therapeutic Activities, Therapeutic Exercises Modalities Cold Pack/Ice Massage,Electric Stimulation,Hot Packs, Infrared Therapy,Ultrasound Next Visit Focus/Plan Next Note Type Discharge Summary Next Visit Plan review HEP as needed Plan of Care Dates Plan of Care Start Date 01/23/24 Plan of Care End Date 03/27/24 Electronically Signed by: Sandrine Gracia, PT 01/23/24 [id number] If you are in agreement with this Plan of Care, please return a signed and dated copy. I have reviewed this Plan of Care and certify that the skilled therapy services above are required to meet the patient?s needs. Physician Signature Date Printed Name and Credentials Clinical Instructor Signature Printed Name and Credentials
--- NOTE | 2024-03-24 15:44 | PT.OPDS ---
Current Diagnoses Unilateral primary osteoarthritis, right hip (01/23/24) Difficulty in walking, not elsewhere classified (01/23/24) Abnormal posture (01/23/24) Weakness (01/23/24) Visit Care Team Role Provider Type Jose Matute MD Family Provider Physician Primary Care Provider Specialty: Internal Medicine Address: [address] [place] [address], [address] Email: [email or web address] Celso Avila MD Attending Provider Non-Staff Referring Provider Specialty: Orthopedic Surgery Address: [address] [place] [address], [place], [address] Email: Visit Number Visit Number 17 Discharge Summary PT-OP-B Current Condition Start: 08/29/23 10:56 Freq: Status: Active Protocol: Document 09/05/23 07:29 [facility] (Rec: 09/05/23 11:18 [facility] [id number]) Current Condition History of Current Condition Onset Date gradually last year spring Current Complaints R hip History of Current Condition Pt reports she is bone on bone per doctor and she is a candidate for hip replacement but started with an injection and that really helped. She feels like [facility] needs strengthening because she has avoided activity. She is hoping for some strengthening. She volunteers for the [employer] in the summer and rides or hikes to get to areas they are working. She noticed getting up/down from the horse was really hard. 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 Pt reprots when pain got excrutiating in Jun, she would have to sit down mid day. She would stop doing stairs. injection was mid dec. Pt consistantly walks about 2-3 miles a day that is pretty much flat. Had to really limit her walking or not walk prior to shot. had to sig limit activity prior to shot Treatment Goals Patient/Caregiver Goals build strength, be able to tie R shoe and don R sock, bending down to pick something off ground; be able to do stairs easier PT-OP-C Subjective Start: 08/29/23 10:56 Freq: Status: Active Protocol: Document 01/23/24 14:37 [facility] (Rec: 01/23/24 15:34 [facility] [id number]) OP-PT Subjective Patient Comments Patient Comments reports inc pain w/injection wearing off PT-OP-D Balance Start: 08/29/23 10:56 Freq: Status: Active Protocol: Document 01/23/24 14:37 [facility] (Rec: 01/23/24 15:34 [facility] [id number]) Balance Tests Single Limb Standing Single Limb- Right 4 sec Single Limb- Left 22 sec PT-OP-F Manual Assessment Start: 08/29/23 10:56 Freq: Status: Active Protocol: Document 09/05/23 07:29 [facility] (Rec: 09/05/23 11:18 [facility] [id number]) Manual Assessments Joint Mobility Assessment Joint Mobility Assessment clunking and crepetits w/ROM of R hip PT-OP-G Mobility & Gait Start: 08/29/23 10:56 Freq: Status: Active Protocol: Document 09/05/23 07:29 [facility] (Rec: 09/05/23 11:18 [facility] [id number]) OP Gait Assessment Comments Gait Comments hard landing on RLE w/lat lean on RLE PT-OP-J Posture/Palpation/Skin Start: 08/29/23 10:56 Freq: Status: Active Protocol: Document 01/23/24 14:37 [facility] (Rec: 01/23/24 15:34 [facility] [id number]) Posture Evaluation [facility] Postural Classification System Lumbar Protective Mechanism Left AP 4 Lumbar Protective Mechanism Right AP 2 Lumbar Protective Mechanism Left PA 2 Lumbar Protective Mechanism Right PA 2 PT-OP-K Range of Motion Start: 08/29/23 10:56 Freq: Status: Active Protocol: Document 09/05/23 07:29 [facility] (Rec: 09/05/23 11:18 [facility] [id number]) Hip Goniometric Range of Motion Hip Left Active Flexion w/Knee Flexed 105 Straight Leg Raise 91 Right Active Flexion w/Knee Flexed 100 Straight Leg Raise 69 Comments pain w/groin PT-OP-M Strength Start: 08/29/23 10:56 Freq: Status: Active Protocol: Document 01/23/24 14:37 [facility] (Rec: 01/23/24 15:34 [facility] [id number]) Hip Strength Hip Manual Muscle Testing Right Flexion (L2) 4 Good Extension (S1) 5 Normal Abduction 4- Good- Adduction 4- Good- External Rotation 4+ Good+ Internal Rotation 5 Normal Left Flexion (L2) 5 Normal Extension (S1) 5 Normal Abduction 4+ Good+ Adduction 5 Normal External Rotation 5 Normal Internal Rotation 5 Normal Comments pain R groin w/hip ext Knee Strength Knee Manual Muscle Testing Right Flexion (S2) 5 Normal Extension (L3) 5 Normal Left Flexion (S2) 5 Normal Extension (L3) 5 Normal Ankle/Foot Strength Ankle and Foot Manual Muscle Testing Right Dorsiflexion (L4) 5 Normal Left Dorsiflexion (L4) 5 Normal PT-OP-T Assessment and Plan Start: 08/29/23 10:56 Freq: Status: Active Protocol: Document 03/24/24 15:43 [facility] (Rec: 03/24/24 15:44 [facility] [id number]) Physical Therapy Assessment Goals balance Short Term Goal (STG) Pt will be able to do SLS B for at least 10 sec. 3/-5 sec r;14 L 12/26-3 sec, 9 sec L 01/22- 4sec R; 22 sec L improved STG Duration 02/10 Custodial Goal (LTG) Pt will be able to do SLS B for at least 15 sec. LTG Duration 03/13 strength Short Term Goal (STG) Pt will be indep w/HEP STG Duration achieved advancing as able Care Center Manager Goal (LTG) Pt will score at least 3/5 on LPM in all planes and at least 4+/5 on all B LE MMT to show improved strength in order for pt to hav greater ease with movement. 3-improved 11/25-improved 01/22-no major change except LPM improve core stability LTG Duration 8 ROM Short Term Goal (STG) Pt will have enough hip ROM to be able to don and doff shoes and socks w/o inc difficulty 3/4-a little easier 11/25-slightly improved 12/26-leans back slightly to get leg up STG Duration DC goal as pt making little progress likely d/t OA Care Center Manager Goal (LTG) Pt will be able to pick things off the ground w/o difficulty or pain. 3/4-feels stiff in back but no pain LTG Duration achieved-r shoulder bothers some activities Care Center Manager Goal (LTG) Pt will be able to walk, do stairs and do all activities around her house and travelling w/o feeling of weakness or fatigue of RLE limiting her 3/4- stairs are easier; not as fast as used to be still but walking more pleasurable d/t no giving out of hip; has gone on some trails 11/25-chooses stairs now, sometimes descending stairs difficult so holds rail; less fatigue noted 12/26-don't feel as good going down stairs, feels better overall about going down stairs 01/22-pain inc recently since cortizone shot worn off LTG Duration 03/27 Assessment Summary Assessment per pt email:[place] 01 [place] right ankle in a gopher hole and sustained a nasty sprain. Taped and splinted it and got an Xray after I returned home a week and a half later. Nondisplaced right distal fibula fracture. Being followed by Dr Marcial .. another 6 weeks of a splint and compression.. he has written a RX for ankle PT as it is getting a bit stiff. Remains sore and mild to moderate swelling. See him again in 6 weeks.. fibula is healing.. did not need surgery !! My hip surgery is scheduled for Jun 04. I am doing my stretches but have held back on some of the strengthening exercises due to the ankle. DC d/t change in medical status Physical Therapy Plan Discharge Physical Therapy Discharge Reasons Change in Medical Status
== END 2024-03-27 08:47 | disposition home or self-care (01) ==
LOC: PHYS 14:30
PROVIDERS: Family Provider Internal Medicine; PCP Internal Medicine; Referring Provider Orthopaedic Surgery; Visit Provider Orthopaedic Surgery
DX: M16.11 Unilateral primary osteoarthritis, right hip (principal); R53.1 Weakness; R29.3 Abnormal posture; R26.2 Difficulty in walking, not elsewhere classified
CPT/HCPCS: 97110; 97112; 97116; 97140; 97162; 97535

== ENCOUNTER → 2024-03-10 09:57 | Outpatient (CLI) | payer MEDICARE, OTHER, SELFPAY ==
--- NOTE | 2024-03-10 10:09 | EKG_ITS ---
[place] [address] [place] [id number] Test Date: 2024-03-10 Pat Name: Taylor Fowler Department: [facility] Room: Gender: Female Picture Booker: LANETTE : 1950 Requested By: Order Number: [id number] Reading MD: Rubén Strong Measurements Intervals [place] Rate: 75 P: 65 IA: 164 QRS: -44 QRSD: 94 T: 42 QT: 376 QTc: 419 Interpretive Statements Normal sinus rhythm with sinus arrhythmia Possible Left atrial enlargement Left axis deviation Left ventricular hypertrophy ( R in aVL , [place] product ) Electronically Signed On 03-11-2024 12:19:49 PDT by Rubén Strong
== END ==
PROVIDERS: Family Provider Internal Medicine; PCP Internal Medicine; Referring Provider Internal Medicine; Visit Provider Internal Medicine
DX: I48.0 Paroxysmal atrial fibrillation (principal)
CPT/HCPCS: 93005

== ENCOUNTER → 2024-04-03 07:36 | Outpatient (CLI) | payer MEDICARE, OTHER, SELFPAY ==
--- NOTE | 2024-04-03 07:36 | DI.ECHO.S_ITS ---
[facility] : : [address] : : [place] : : [id number] : : Phone: [phone] Echocardiogram Report + + :Name: ALAINA FERRIS Study Date: 04/03/2024 Height: 70 in : [facility]: Weight: 180 lb : : Gender: Female BSA: 2.0 m2 : :: 1950 Age: 73 yrs BP: 166/88 mmHg: :Reason For Study: MURMUR : :Ordering Physician: ESCOBAR, : :JUAN CARLOS Performed By: Honey Gaona : :Referring: JUAN CARLOS CODY : + + Interpretation Summary 1. The left ventricular contractility is normal. Estimated ejection fraction is Anoop 60% with no segmental wall motion abnormalities. No LVH. Normal diastolic function. 2. The right ventricular contractility is normal. 3. There is mild biatrial enlargement. The right ventricular cavity is also borderline enlarged. The left ventricular cavity is of normal size. 4. Mild to moderate aortic valvular stenosis with mean gradient of 18 mmHg and dimensionless index of 0.40. 5. No obvious intracardiac shunts. 6. No obvious intracardiac masses nor thrombi. 7. No hemodynamically significant pericardial effusion. 8. Low right-sided filling pressures. Conclusion: Normal biventricular systolic function with mild to moderate aortic valvular stenosis. When compared with previous echocardiogram, there does appear to be progression of the aortic valvular stenosis. Procedure: A two-dimensional transthoracic echocardiogram with color flow and Doppler was performed. The study quality was technically adequate. Comparison is made with the echocardiogram of 05/16/2017. The patient was in sinus rhythm with heart rates between 69-73 bpm during the exam. Left Ventricle: The left ventricle is normal in size and wall thickness. The ejection fraction is estimated to be 60-65%. Right Ventricle: The right ventricle is borderline dilated. The right ventricular systolic function is normal. Atria: The left atrium is mildly dilated. The right atrium is borderline dilated. There is no Doppler evidence for an interatrial shunt. Mitral Valve: The mitral valve leaflets appear mildly thickened, but open well. There is mild mitral annular calcification. There is trace mitral regurgitation. Aortic Valve: The aortic valve is mildly calcified. There is mild to moderately reduced leaflet mobility. There is mild to moderate aortic stenosis. The peak aortic velocity is 2.78 m/sec. The aortic valve mean gradient is 18 mmHg. The calculated aortic valve area is 1.4 cm2. No aortic regurgitation is present. Tricuspid Valve: The tricuspid valve is normal in structure and function. There is trace tricuspid regurgitation. The right ventricular systolic pressure is estimated to be at least 36 mmHg based on an estimated right atrial pressure of 3 mm Hg. Pulmonic Valve: The pulmonic valve leaflets are thin and pliable; valve motion is normal. There is trace pulmonic regurgitation. Great Vessels: The aortic root is normal size. The dimensions of the ascending aorta are normal. The IVC is of normal diameter and collapses greater than 50% with a sniff. This suggests a low right atrial pressure of 3 mm Hg. Pericardium/ Pleura There is no pericardial effusion. There is no pleural effusion. MMode/2D Measurements & Calculations LVIDd: 4.5 cm LVOT diam: 2.1 cm LVIDs: 2.9 cm Ao root diam: 3.6 cm FS: 34.9 % asc Aorta Diam: 3.3 cm IVSd: 1.1 cm Ao Arch Diam (Prox Trans): 2.5 cm LVPWd: 0.79 cm LV jackson. diameter/BSA (cm/m^2): 2.2 LV sys. diameter/BSA (cm/m^2): 1.5 LA A2 area: 24.4 cm2 RA long axis: 6.0 cm LA A4 area: 20.6 cm2 RA area: 21.7 cm2 LA length (vol): 5.1 cm RA vol: 66.7 ml LA vol: 84.3 ml RA : 33.4 ml/m2 LA vol index: 42.2 ml/m2 IVC diam: 1.1 cm RVD1 (basal): 4.1 cm RVD2 (mid): 3.1 cm TAPSE: 2.8 cm Doppler Measurements & Calculations Ao V2 max: 278.5 cm/sec LVOT Max Stewart: 110.5 cm/sec Ao V2 mean: 195.6 cm/sec LV V1 max P.9 mmHg Ao max P.6 mmHg LV V1 VTI: 26.6 cm Ao mean P.5 mmHg CASTILLO(I,D): 1.4 cm2 Ao V2 VTI: 65.7 cm CASTILLO(V,D): 1.3 cm2 sev ratio: 0.40 CASTILLO indexed to BSA (cm^2/m^2): 0.69 MV E max stewart: 122.1 cm/sec TR max stewart: 284.4 cm/sec MV A max stewart: 91.7 cm/sec TR max P.3 mmHg MV E/A: 1.3 PA V2 max: 119.4 cm/sec Med Peak E' Stewart: 8.8 cm/sec PA V2 mean: 79.7 cm/sec E/E' med: 13.9 PA mean P.9 mmHg Lat Peak E' Stewart: 8.6 cm/sec PA pr(Accel): 19.1 mmHg E/E' lat: 14.2 E/e' average: 14.0 MV dec time: 0.17 sec SV(LVOT): 89.9 ml Reading Physician:
== END ==
PROVIDERS: Family Provider Internal Medicine; PCP Internal Medicine; Referring Provider Internal Medicine; Visit Provider Internal Medicine
DX: I34.81 Nonrheumatic mitral (valve) annulus calcification (principal); I35.0 Nonrheumatic aortic (valve) stenosis; R01.1 Cardiac murmur, unspecified
CPT/HCPCS: 93306

== ENCOUNTER → 2025-03-16 07:24 | Outpatient (CLI) | payer MEDICARE, OTHER, SELFPAY ==
[2025-03-16 08:26] LABS: Hematocrit 37.3 % (36-46); Hemoglobin 12.6 g/dL (12.0-16.0); Mean Corpuscular HGB Conc 33.7 % (30-36); Mean Corpuscular Hemoglobin 31.4 PG (26-34); Mean Corpuscular Volume 93.1 fL (80-100); Platelet Count 258 X10^3/uL (150-400)
[2025-03-16 08:55] LABS: Alanine Aminotransferase 21 IU/L (<35); Albumin 4.6 g/dL (3.5-5.0); Albumin Globulin Ratio 1.8 (1.0-2.8); Alkaline Phosphatase 69 U/L (38-126); Blood Urea Nitrogen 26 mg/dL (7-17); Calcium 10.0 mg/dL (8.4-10.2); Carbon Dioxide 26 mmol/L (22-32); Chloride 103 mmol/L (98-107); Cholesterol 242 mg/dL (140-199); Estimated Glomerular Filt Rate 47 mL/min (>60); Globulin 2.6 g/dL (1.7-4.1); Glucose 96 mg/dL (70-99); HEMOLYSIS < 15 (0-50); Potassium 5.1 mmol/L (3.4-5.1); Sodium 136 mmol/L (137-145); Total Protein 7.2 g/dL (6.3-8.2); Triglycerides 95 mg/dL (35-150)
[2025-03-16 09:07] LABS: HDL Cholesterol 118 mg/dL (40-60)
== END ==
PROVIDERS: Family Provider Internal Medicine; PCP Internal Medicine; Referring Provider Internal Medicine; Visit Provider Internal Medicine
DX: I10 Essential (primary) hypertension (principal); I48.0 Paroxysmal atrial fibrillation; E78.2 Mixed hyperlipidemia
CPT/HCPCS: 36415; 80053; 80061; 85027

== ENCOUNTER → 2025-04-25 07:45 | Outpatient (CLI) | payer MEDICARE, OTHER, SELFPAY | PROVIDERS: Family Provider Internal Medicine; PCP Internal Medicine; Visit Provider Chiropractor | DX: R82.90 Unspecified abnormal findings in urine (principal) | CPT/HCPCS: 87077; 87086 ==

== ENCOUNTER → 2025-07-08 08:24 | Outpatient (CLI) | payer MEDICARE, OTHER, SELFPAY ==
[2025-07-08 09:52] LABS: Blood Urea Nitrogen 37 mg/dL (7-17); Calcium 10.0 mg/dL (8.4-10.2); Carbon Dioxide 22 mmol/L (22-32); Chloride 102 mmol/L (98-107); Estimated Glomerular Filt Rate 40 mL/min (>60); Glucose 95 mg/dL (70-99); HEMOLYSIS < 15 (0-50); Potassium 5.0 mmol/L (3.4-5.1); Sodium 135 mmol/L (137-145)
== END ==
PROVIDERS: Family Provider Internal Medicine; PCP Internal Medicine; Referring Provider Internal Medicine; Visit Provider Internal Medicine
DX: I10 Essential (primary) hypertension (principal)
CPT/HCPCS: 36415; 80048